=== PATIENT | female | born 1985 | race Caucasian/White ===

== ENCOUNTER 2019-08-05 10:04 | Outpatient (CLI) | payer OTHER, SELFPAY ==
--- NOTE | ~2019-08-05 | XR_ITS ---
XR foot RT min 3V DATE: 08/05/2019 10:36 INDICATION: Right ankle and foot pain TECHNIQUE: 4 views COMPARISON: None FINDINGS: Stable benign 4 mm lucency of distal fibular diametaphysis is again noted. If there is conc andrea for osteoid osteoma, consider CT imaging or radionuclide bone scan. No fracture, dislocation, periosteal reaction or bone destruction of the right foot. There is mild to moderate osteoarthritis at the first metatarsophalangeal joint. IMPRESSION: Moderate osteoarthritis at the first metatarsophalangeal joint Stable benign 4 mm lucency of distal fibular diametaphyseal cortex; if there is concern for osteoid o steoma, consider CT imaging or radionuclide bone scan Reviewed, dictated and finalized at location A. IMPRESSION: Moderate osteoarthritis at the first metatarsophalangeal joint Stable benign 4 mm lucency of distal fibular diametaphyseal cortex; if there is concern for osteoid osteoma, consider CT imaging or radionuclide bone scan
--- NOTE | ~2019-08-05 | XR_ITS ---
XR ankle RT min 3V DATE: 08/05/2019 10:36 INDICATION: Right ankle and foot pain TECHNIQUE: 4 views COMPARISON: 04/28/2015 right ankle FINDINGS: There is a stable 4 mm lucency of the distal fibular diametaphysis, unchanged since 04/28/19 16, therefore consistent with benign process. No fracture or dislocation of the ankle or disruption of the ankle mortise is detected. No periosteal reaction or bone destruction. IMPRESSION: Stable 4 mm lucency of distal fibular diametaphysis, unchanged since 04/28/2015, consisten t with stable benign process Reviewed, dictated and finalized at location A. IMPRESSION: Stable 4 mm lucency of distal fibular diametaphysis, unchanged sinc e 04/28/2015, consistent with stable benign process
== END 2019-08-05 10:05 | disposition home or self-care (01) ==
LOC: ANHIMG 10:12
PROVIDERS: PCP Family Medicine; Visit Provider Nurse Practitioner Family
DX: M25.579 Pain in unspecified ankle and joints of unspecified foot (principal); M19.071 Primary osteoarthritis, right ankle and foot
CPT/HCPCS: 73610; 73630

== ENCOUNTER 2019-09-29 12:20 | Outpatient (CLI) | payer OTHER, SELFPAY ==
--- NOTE | ~2019-09-29 | US_ITS ---
EXAMINATION: US abdomen complete DATE: 09/29/2019 13:21 INDICATION: Abdominal pain TECHNIQUE: Multiple grayscale and Doppler ultrasound images of the abdomen were obtained. COMPARISON: None available FINDINGS: Bowel gas obscures visualization of the pancreas. The visualized portions of the pancreas a re unremarkable. The liver demonstrates increased echogenicity, heterogenous echotexture, and decreas ed through transmission. No surface nodularity. Normal hepatopetal flow in the main portal vein. The gallbladder is normal with no abnormal wall thickening, pericholecystic fluid or stones. The normal c ommon bile duct measures 4 mm. There was no sonographic Sainz sign. The visualized portions of the a tien and inferior vena cava are normal. The right kidney measures 9.1 x 4.0 x 4.0 cm. The left kidney measures 9.7 x 5.3 x 5.0 cm. The kidney s demonstrate normal parenchymal echogenicity. There is no hydronephrosis. The spleen is normal in ap pearance and measures 8.5 cm. IMPRESSION: 1. No sonographic correlate for the patient's symptoms. 2. Diffuse hepatic steatosis. Reviewed, dictated and finalized at location A.
== END 2019-09-29 12:21 | disposition home or self-care (01) ==
PROVIDERS: PCP Nurse Practitioner Family; Visit Provider Nurse Practitioner Family
DX: R10.9 Unspecified abdominal pain (principal); K76.0 Fatty (change of) liver, not elsewhere classified
CPT/HCPCS: 76700

== ENCOUNTER 2019-12-26 13:43 | Outpatient (CLI) | payer OTHER, SELFPAY ==
--- NOTE | ~2019-12-26 | XR_ITS ---
EXAMINATION: XR shoulder RT min 2V DATE: 12/26/2019 14:32 INDICATION: Right shoulder pain. TECHNIQUE: 4 views of right shoulder were obtained. COMPARISON: None. FINDINGS: Bone alignment is normal. No fracture. There is mild acromioclavicular joint osteoarthritis . Glenohumeral joint is normal. IMPRESSION: 1. Mild right acromioclavicular joint osteoarthritis. Reviewed, dictated and finalized at location A.
--- NOTE | ~2019-12-26 | MR_ITS ---
EXAMINATION: MR brain/brain stem wo con DATE: 12/26/2019 14:22 INDICATION: Headache. TECHNIQUE: Magnetic resonance imaging (MRI) of the brain and brainstem was performed without intraven ous contrast. Sequences included sagittal and axial T1-weighted FSE, axial diffusion-weighted FS EPI, axial T2*-weighted GRE, axial T2-weighted FLAIR Propeller, and axial T2-weighted Propeller. Apparent diffusion coefficient (ADC) maps were created. COMPARISON: None. FINDINGS: There is no intracranial hemorrhage, acute infarction, or abnormal intracranial mass lesion . The ventricles are normal in size. There is mild mucosal thickening in the paranasal sinuses. The o rbits are normal. There are small bilateral mastoid effusions. IMPRESSION: 1. Normal brain. Reviewed, dictated and finalized at location A. IMPRESSION: 1. Normal brain.
== END 2019-12-26 13:44 | disposition home or self-care (01) ==
LOC: ANHIMG 13:46
PROVIDERS: PCP Nurse Practitioner Family; Visit Provider Nurse Practitioner Family
DX: M25.511 Pain in right shoulder (principal); R51 Headache; M19.011 Primary osteoarthritis, right shoulder
CPT/HCPCS: 70551; 73030

== ENCOUNTER 2020-01-13 15:07 | Outpatient (CLI) | payer OTHER, SELFPAY ==
--- NOTE | ~2020-01-13 | XR_ITS ---
EXAMINATION: XR wrist RT min 3V DATE: 01/13/2020 15:29 INDICATION: Right wrist pain and bruising post injury TECHNIQUE: Posteroanterior, ulnar deviation, oblique, and lateral views of the right wrist were obtai fransico. COMPARISON: 05/30/2016 FINDINGS: 3 mm ulnar minus variance. Bone alignment is otherwise normal. No fracture. Joint spaces are normal. Small lucency with thin sclerotic margins at the tip of the ulnar styloid process consistent with deg enerative cystic change or chronic erosion. Soft tissues are unremarkable. IMPRESSION: 1. No acute osseous abnormality. Reviewed, dictated and finalized at location A.
== END 2020-01-13 15:08 | disposition home or self-care (01) ==
PROVIDERS: PCP Nurse Practitioner Family; Visit Provider Nurse Practitioner Family
DX: M25.531 Pain in right wrist (principal)
CPT/HCPCS: 73110

== ENCOUNTER 2020-07-02 08:02 | Emergency (ER) | payer OTHER, SELFPAY ==
--- NOTE | 2020-07-02 08:06 | ED.EXTPRO ---
HPI - Extremity Problem General Chief complaint: Extremity Injury, Upper Stated complaint: right wrist pain Time Seen by Provider: 07/02/20 08:30 Source: patient and RN notes reviewed Mode of arrival: ambulatory Limitations: no limitations History of Present Illness HPI Narrative: 34-year-old female presents with right wrist pain. Reports 2 days of pain. Reports she is right-hand dominant. She denies any known injury. 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 Reports she had a right wrist injury in January, had an x-ray at that time, did not show any fracture. Reports symptoms from that injury resolved. Reports using Aleve with no relief. Denies any other mention. Denies decreased sensation, strength, range of motion in hand or digits. MD Complaint: extremity pain Related Data Home Medications Medication Instructions Recorded Confirmed alprazolam [Xanax] 2 mg PO TID 07/02/20 07/02/20 duloxetine [Cymbalta] 40 mg PO BID 07/02/20 07/02/20 norethindrone ac-eth estradiol 1 tablet PO DAILY 07/02/20 07/02/20 tizanidine [Zanaflex] 4 mg PO Q6-12H 07/02/20 07/02/20 Allergies Allergy/AdvReac Type Severity Reaction Status Date / Time hydrocodone Allergy Mild ITCHING Verified 12/30/17 07:46 ibuprofen AdvReac Unknown AFFECTS IBS Verified 12/30/17 07:46 Review of Systems Review of Systems: Narrative: CONSTITUTIONAL: Denies malaise, chills, sweats, or fever. SKIN: Denies abrasions, lacerations MUSCULOSKELETAL: Reports right wrist pain, swelling NEUROLOGIC: Denies numbness, weakness All systems reviewed & are unremarkable except as noted in HPI and below PMFSH Social History Social History Gender identity (if verbalized by the patient): Female Comments At time of signature, agree with nursing past medical, surgical, social and family history. There is no relevant family history pertinent to the presenting complaint Exam Narrative: Exam Narrative: GENERAL: Well-appearing, well-nourished, and in no acute distress. HEAD: Normocephalic EYES: PERRLA, conjunctivae clear NECK: Supple. CHEST: Speaks in full sentences. No respiratory distress. HEART: Regular rate and rhythm. Normal and equal peripheral pulses. EXTREMITIES: Right wrist, hand and digits of hand have normal strength and sensation. 5/5 strength with digit flexion, extension. Range of motion normal. No clubbing, cyanosis, or edema noted. Generalized tenderness. Skin intact. Normal digital cascade with flexion of fingers, median, ulnar and radial nerve intact. Normal sensation of each side of finger. Can perform 'okay' sign, 'cross over finger test of index and middle fingers' and 'thumbs up' sign. No scissoring. Normal thumb opposition. Good capillary refill and radial pulse. Distal capillary refill less than 3 seconds. Tinel sign positive, Phalen sign negative. SKIN: Warn, dry, intact, pink. No rash NEURO: Alert and oriented x3. PSYCH: Normal mood and affect Course Course Emergency Course: Patient is aware of diagnosis, understands and agrees to treatment plan. Anticipatory guidance given. Patient agrees to follow-up as directed and is aware of reasons to seek care at the emergency department. Portions of this record may have been created with voice recognition software Vital Signs Vital signs: Vital Signs Temperature 97.7 F 07/02/20 08:22 Pulse Rate 76 07/02/20 08:22 Respiratory Rate 16 07/02/20 08:22 Blood Pressure 154/86 H 07/02/20 08:22 Pulse Oximetry 99 07/02/20 08:22 Temperature 97.7 F 07/02/20 08:22 Pulse Rate 76 07/02/20 08:22 Respiratory Rate 16 07/02/20 08:22 Blood Pressure 154/86 H 07/02/20 08:22 Pulse Oximetry 99 07/02/20 08:22 Reviewed. Patient has been instructed to follow up with her primary care provider within the next week regarding her elevated blood pressure today. MDM - Extremity (Nontraumatic) MDM Narrative Medical decision making narrative: X-ray from January 13, 2020 reveals 3 mm ulnar minus variance
[2020-07-02 08:22] VITALS: BP 154/86; PULSE 76; RESP 16; TEMP 36.5; O2SAT 99
== END 2020-07-02 08:46 | disposition home or self-care (01) ==
PROVIDERS: Emergency Provider Nurse Practitioner; PCP Nurse Practitioner Family
DX: M25.531 Pain in right wrist (principal); F17.200 Nicotine dependence, unspecified, uncomplicated
CPT/HCPCS: 99212; G0463

== ENCOUNTER 2020-07-31 12:27 | Emergency (ER) | payer OTHER, SELFPAY ==
[2020-07-31 12:35] VITALS: BP 150/90; PULSE 62; RESP 16; TEMP 37.1; O2SAT 98
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
== END 2020-07-31 13:39 | disposition home or self-care (01) ==
PROVIDERS: Emergency Provider Nurse Practitioner; PCP Nurse Practitioner Family
DX: L30.4 Erythema intertrigo (principal); F17.210 Nicotine dependence, cigarettes, uncomplicated; F41.9 Anxiety disorder, unspecified; F32.9 Major depressive disorder, single episode, unspecified
CPT/HCPCS: 99213; G0463

== ENCOUNTER 2020-08-06 06:50 | Emergency (ER) | payer OTHER, SELFPAY ==
[2020-08-06 06:56] VITALS: BP 131/80; PULSE 90; RESP 18; TEMP 36.7; O2SAT 96
--- NOTE | 2020-08-06 07:15 | PC.NURSE ---
Report received from VIC Baez. Pt resting comfortably on stretcher.
--- NOTE | 2020-08-06 07:16 | ED.GENADULT ---
HPI - General Adult General Chief complaint: Skin/Abscess/Foreign Body Stated complaint: rash [id number] Time Seen by Provider: 08/06/20 07:01 Source: patient History of Present Illness HPI narrative: Patient is a 35 y/o female complaining severe bilateral axillary and groin rash for 2 weeks. She states that her rash is very itchy. She was seen at [facility] recently and and diagnosed with skin yeast infection. She was given topical antifungal cream and topic steroids which only helped minimally. Related Data Home Medications Medication Instructions Recorded Confirmed alprazolam [Xanax] 2 mg PO Q6H 07/02/20 07/31/20 duloxetine [Cymbalta] 40 mg PO BID 07/02/20 07/31/20 norethindrone ac-eth estradiol 1 tablet PO DAILY 07/02/20 07/31/20 tizanidine [Zanaflex] 4 mg PO Q6-8H 07/02/20 07/31/20 doxycycline hyclate 100 mg PO BID 07/31/20 07/31/20 nystatin 1 applic TOPICAL BID 07/31/20 07/31/20 triamcinolone acetonide 1 applic TOPICAL Q12H 07/31/20 07/31/20 Allergies Allergy/AdvReac Type Severity Reaction Status Date / Time hydrocodone Allergy Mild ITCHING Verified 08/06/20 07:00 ibuprofen AdvReac Unknown AFFECTS IBS Verified 08/06/20 07:00 Review of Systems Constitutional: Constitutional: Denies chills, Denies fever(s), Denies headache(s) and Denies weakness Eyes: Eyes: Denies blurry vision ENT: Denies headache(s) and Denies neck pain Cardiovascular: Cardiovascular: Denies chest pain and Denies dyspnea Respiratory: Respiratory: Denies cough and Denies dyspnea Gastrointestinal: Gastrointestinal: Denies abdominal pain, Denies diarrhea, Denies nausea and Denies vomiting Genitourinary: Genitourinary: Denies hematuria and Denies dysuria Musculoskeletal: Musculoskeletal: Denies back pain and Denies neck pain Integumentary/Breasts: Skin/Breast: Reports rash Neurologic: Denies headache(s) and Denies weakness PMFSH Past Medical History Medical History Abdominal pain Anxiety Constipation Coughing Depression Dizziness IBS (irritable bowel syndrome) Triangular fibrocartilage complex injury Wears glasses Surgical History Surgical History History of colostomy History of endoscopy History of laparoscopy Family History Family History Other Depression Social History Social History Smoking packs per day: 1 Smoking cigarettes per day: 20.0 Years smoked: 10 Smoking pack-years: 10.00 Smoking status: Current every day smoker Tobacco type: cigarettes Alcohol intake: never Substance use: current Substance use type: marijuana Gender identity (if verbalized by the patient): Female Exam Const: General: no acute distress and well developed Orientation/consciousness: oriented to person, oriented to place, oriented to time and patient oriented x3 HENMT: Head: normocephalic Ears: external ears normal General nose exam: Normal external nose present Eyes: General: appearance normal, both eyes and all related structures Conjunctivae: conjunctivae normal Neck: Neck: normal visual inspection Chest: Chest palpation & inspection: normal inspection of the chest Resp: Effort & Inspection: normal respiratory effort Skin: General skin exam: normal color and turgor normal Rashes: rashes noted (bilateral erythematous macular rash both axillary and groin area) Neuro: General: oriented to person, oriented to place, oriented to time and patient oriented x3 Cognition (Neuro): normal cognition Course Vital Signs Vital signs: Vital Signs Temperature 36.7 C 08/06/20 06:56 Pulse Rate 90 08/06/20 06:56 Respiratory Rate 18 08/06/20 06:56 Blood Pressure 131/80 08/06/20 06:56 Pulse Oximetry 96 08/06/20 06:56 Temperature 36.7 C 08/06/20 06:56 Pulse Rate 90 08/06/20 06:
== END 2020-08-06 07:50 | disposition home or self-care (01) ==
PROVIDERS: Emergency Provider Emergency Medicine; PCP Nurse Practitioner Family
DX: R21 Rash and other nonspecific skin eruption (principal); F41.9 Anxiety disorder, unspecified; F32.9 Major depressive disorder, single episode, unspecified; K58.9 Irritable bowel syndrome, unspecified; F17.210 Nicotine dependence, cigarettes, uncomplicated
CPT/HCPCS: 99283

== ENCOUNTER 2020-08-31 10:48 | Outpatient (CLI) | payer OTHER, SELFPAY ==
--- NOTE | ~2020-08-31 | MR_ITS ---
EXAMINATION: MR wrist RT wo con DATE: 08/31/2020 11:34 INDICATION: Right wrist sprain presenting with right wrist pain. TECHNIQUE: Magnetic resonance imaging (MRI) of the right wrist was performed without intravenous cont rast. Sequences performed include axial PD-weighted FSE and PD-weighted FS FSE, coronal PD-weighted F S FSE and T1-weighted SE, and sagittal PD-weighted FS FSE and PD-weighted FSE. COMPARISON: 07/18/2020 FINDINGS: Intrinsic ligaments: The scapholunate and lunotriquetral ligaments are normal. Triangular fibrocartilage complex (TFCC): There is mild increased signal at the ulnar side of the central fiber cartilaginous disc of the trian gular fibrocartilage complex and its styloid attachment consistent with partial tear. Small erosion a t the ulnar styloid attachment. The radial and foveal attachments as well as the dorsal and volar rad ioulnar ligaments are normal. The ulnar collateral ligament, ulnotriquetral ligament and meniscal cosmo ologue are normal. The extensor carpi ulnaris subsheath was performed and folded within the ECU groov e. There is ulnar subluxation of the extensor carpi ulnaris tendon across the ulnar side of the rim o f the ECU groove and tip of the ulnar styloid process. Extensor wrist: Extensor tendons of the wrist are normal. No tenosynovitis. Flexor wrist: The flexor tendons of the wrist are normal. Guyon's canal: Guyon's canal including the ulnar nerve and artery are normal. Bones/other: 2-3 mm ulnar minus variance. Bone alignment is otherwise normal. No fracture, avascular necrosis or p athologic marrow replacing process. Joint spaces appear relatively preserved with no focal cartilage defects appreciated. Multilobulated ganglion cyst extending 1.8 cm medial collateral across the volar aspect of the distal radius and measuring up to 7 x 3 mm in maximal orthogonal dimensions. There is thickening and increased signal of the median nerve proximal to the carpal tunnel which could be seen with carpal tunnel syndrome. IMPRESSION: 1. Partial tear tear of the ulnar styloid attachment and ulnar side of the fibrocartilaginous disc of the triangular fibrocartilage complex which may be chronic given the erosive change at the tip of th e ulnar styloid process. 2. Tear of the extensor carpi ulnaris subsheath with ulnar subluxation of the otherwise normal-appear ing extensor carpi ulnaris tendon. 3. Prominent thickening and mild increased signal of the median nerve proximal to the carpal tunnel. Correlate clinically for signs/symptoms of carpal tunnel syndrome. 4. 18 x 7 x 3 mm ganglion cyst along the volar aspect of the distal radius. Reviewed, dictated and finalized at location A. IMPRESSION: 1. Partial tear tear of the ulnar styloid attachment and ulnar side of the fibr ocartilaginous disc of the triangular fibrocartilage complex which may be chron ic given the erosive change at the tip of the ulnar styloid process. 2. Tear of the extensor carpi ulnaris subsheath with ulnar subluxation of the o therwise normal-appearing extensor carpi ulnaris tendon. 3. Prominent thickening and mild increased signal of the median nerve proximal to the carpal tunnel. Correlate clinically for signs/symptoms of carpal tunnel syndrome. 4. 18 x 7 x 3 mm ganglion cyst along the volar aspect of the distal radius.
== END 2020-08-31 10:49 | disposition home or self-care (01) ==
PROVIDERS: PCP Nurse Practitioner Family; Visit Provider Orthopaedic Surgery
DX: S63.591A Other specified sprain of right wrist, initial encounter (principal); M67.431 Ganglion, right wrist
CPT/HCPCS: 73221

== ENCOUNTER 2020-09-08 10:26 | Emergency (ER) | payer OTHER, SELFPAY ==
[2020-09-08 10:33] VITALS: BP 110/62; PULSE 67; RESP 17; TEMP 36.6; O2SAT 99
--- NOTE | 2020-09-08 11:09 | ED.URI ---
HPI - URI/Sore Throat General Chief Complaint: Upper Respiratory Infection Stated Complaint: Cough Time Seen by Provider: 09/08/20 10:45 Source: patient, RN notes reviewed and old records reviewed Mode of arrival: ambulatory Limitations: no limitations History of Present Illness HPI Narrative: 35-year-old female who presents to [facility] care with one week duration of low grade fever highest 100.5, cough, sore throat,ear fullness, sinus congestion with drainage of yellow mucous for one week duration. Patient states that she has taken some Aleve for her symptoms. Patient has had one dose of Covid vaccine on the 25 of August. Patient states that cough is productive of yellow/white thick sputum, denies any shortness of breath, no tachypnea noted with respirations even and nonlabored. MD elicited complaint: fever, cough, sore throat, rhinorrhea, nasal congestion and sinus pain Pertinent past history: other (tobacco abuse) Onset (ago): week(s) (1) Consistency: progressively worsening Description of mucous: yellow Able to tolerate fluids by mouth: Yes Exacerbating factors: swallowing and exertion Relieving factors: nothing Associated symptoms: fever, rhinorrhea, nasal congestion, sore throat, cough and other (ear fullness) Treatments prior to arrival: other (Aleve) Related Data Home Medications Medication Instructions Recorded Confirmed alprazolam 1 mg PO TID 09/08/20 09/08/20 dicyclomine 1 mg PO TID 09/08/20 09/08/20 duloxetine 1 mg PO BID 09/08/20 09/08/20 norethindrone ac-eth estradiol 1 tablet PO DAILY 09/08/20 09/08/20 Allergies Allergy/AdvReac Type Severity Reaction Status Date / Time hydrocodone Allergy Mild ITCHING Verified 09/08/20 10:53 ibuprofen AdvReac Unknown AFFECTS IBS Verified 09/08/20 10:53 Review of Systems Review of Systems: Narrative: CONSTITUTIONAL:Positive fever, chills, or sweats. EYES: Denies visual changes, redness, or discharge. ENT: positive rhinorrhea, congestion, sore throat, ear fullness CARDIOVASCULAR: Denies chest pain, palpitations, or edema. RESPIRATORY: Positive cough denies dyspnea. GASTROINTESTINAL: Denies abdominal pain, nausea, vomiting, or diarrhea. GENITOURINARY: Denies dysuria or hematuria. SKIN: Denies rash or itching. MUSCULOSKELETAL: Denies back pain, joint pain, or myalgia. NEUROLOGIC: Denies headache, numbness, or weakness. PSYCHIATRIC:Positive history of anxiety or depression. All systems reviewed & are unremarkable except as noted in HPI and below PMFSH Past Medical History Medical History Abdominal pain Anxiety Constipation Coughing Depression Dizziness IBS (irritable bowel syndrome) Triangular fibrocartilage complex injury Wears glasses Surgical History Surgical History (Updated 09/10/20 @ 10:06 by Christianne Garcia NP) History of colostomy with reversal History of endoscopy History of laparoscopy Family History Family History (Updated 09/10/20 @ 10:05 by Christianne Garcia NP) Grandparent Heart disease Mother Bipolar 1 disorder Polycythemia Other Depression Social History Social History Smoking packs per day: 1 Smoking cigarettes per day: 20.0 Years smoked: 10 Smoking pack-years: 10.00 Smoking status: Current every day smoker Tobacco type: cigarettes Alcohol intake: never Substance use: current Substance use type: marijuana Gender identity (if verbalized by the patient): Female Comments At time of signature, agree with nursing past medical, surgical, social and family history. There is no relevant family history pertinent to the presenting complaint Exam Narrative: Exam Narrative: GENERAL: Well-appearing, well-nourished, and in no acute distress. HEAD: Normocephalic, atraumatic. EYES: PERRLA and EOMI. ENT: Nares red with swelling, yellow tinged rhinorrhea no epistaxis. Mucous membranes moist.TM's normal with
== END 2020-09-08 11:31 | disposition home or self-care (01) ==
PROVIDERS: Emergency Provider Registered Nurse; PCP Nurse Practitioner Family
DX: J06.9 Acute upper respiratory infection, unspecified (principal); Z20.822 Contact with and (suspected) exposure to COVID-19; R09.89 Other specified symptoms and signs involving the circulatory and respiratory systems; F17.210 Nicotine dependence, cigarettes, uncomplicated; F41.9 Anxiety disorder, unspecified; F32.9 Major depressive disorder, single episode, unspecified
CPT/HCPCS: 87081; 87426; 87804; 87880; 99213; C9803; G0463

== ENCOUNTER 2020-10-11 11:08 | Emergency (ER) | payer OTHER, SELFPAY ==
--- NOTE | ~2020-10-11 | XR_ITS ---
EXAMINATION: XR mandible min 4V DATE: 10/11/2020 11:58 INDICATION: Right lower jaw pain. TECHNIQUE: 4 views of the mandible were obtained. COMPARISON: None. FINDINGS: Bone alignment is normal. No fracture. The patient is edentulous. The temporomandibular satish nts are normal. IMPRESSION: 1. No fracture. Reviewed, dictated and finalized at location A. IMPRESSION: 1. No fracture.
[2020-10-11 11:16] VITALS: BP 139/78; PULSE 64; RESP 16; TEMP 37; O2SAT 99
--- NOTE | 2020-10-11 11:28 | ED.GENADULT ---
HPI - General Adult General Chief complaint: Dental/Oral Stated complaint: mouth pain Time Seen by Provider: 10/11/20 11:29 Source: patient and RN notes reviewed Mode of arrival: ambulatory Limitations: no limitations History of Present Illness HPI narrative: 35-year-old female presents with complaints of right lower gum/jaw pain and jaw swelling for the past 10 months. Gina reports dental work causing increasing pain to RT lower side of mouth, increased over the past 2 weeks. ?Reports contacted the dentist who referred her to urgent care and informed her she had a bone spur in RT lower jaw. ?Aleve, Ibuprofen, and ice without relief. Unable to wear dentures due to pain. ?Denies any drainage. ?No fever. ?No neck swelling. No limitation with speaking or swallowing. Has a history of dental caries and total tooth extraction. ?Gina reports a dental appointment on 10/31/2020. No dental trauma. ?No oral lesions. Exacerbating factors consist of chewing on the RT side. No relieving factors. ?No dentures or bridges. ?Tolerating liquids well. ?LMP unknown due to control. ?Remains active. ?The patient reports she has not been diagnosed with COVID-19. ?The patient reports she received 2 Pfizer COVID-19 vaccines. The patient reports she is not waiting for the results of a COVID-19 lab test. ?The patient reports she does not have chills, weakness, or fatigue. ?The patient reports she does not have a new or worsening cough or shortness of breath. Denies chest pain. ?The patient reports she does not have any rhinorrhea, congestion, sore throat, loss of taste or smell, nausea, vomiting, abdominal pain, and diarrhea. ?Denies recent traveling. ?Denies concerns for COVID-19 or exposures. ?At this time, the patient is not suspected of having COVID-19. Some parts of this dictation were generated by voice recognition software and may contain typographical and/or grammatical inaccuracies. Related Data Home Medications Medication Instructions Recorded Confirmed alprazolam 1 mg PO TID 09/08/20 09/08/20 duloxetine 1 mg PO BID 09/08/20 09/08/20 norethindrone ac-eth estradiol 1 tablet PO DAILY 09/08/20 09/08/20 tizanidine mg 10/11/20 Allergies Allergy/AdvReac Type Severity Reaction Status Date / Time hydrocodone Allergy Mild ITCHING Verified 09/08/20 10:53 ibuprofen AdvReac Unknown AFFECTS IBS Verified 09/08/20 10:53 Review of Systems Review of Systems: Narrative: CONSTITUTIONAL: Denies fever, chills, sweats. EYES: Denies visual changes, redness, discharge. ENT: Denies rhinorrhea, congestion, sore throat, otalgia. Complains of right lower right lower gum/jaw pain and jaw swelling. CARDIOVASCULAR: Denies chest pain, palpitations, edema. RESPIRATORY: Denies dyspnea, wheezing, cough. GASTROINTESTINAL: Denies abdominal pain, nausea, vomiting, diarrhea. SKIN: Denies rash or itching. MUSCULOSKELETAL: Denies acute back pain, joint pain, or myalgia. NEUROLOGIC: Denies numbness or focal weakness. PSYCHIATRIC: Denies anxiety or depression. All systems reviewed & are unremarkable except as noted in HPI and below. [facility] Past Medical History Medical History Abdominal pain Anxiety Constipation Coughing Depression Dizziness IBS (irritable bowel syndrome) Triangular fibrocartilage complex injury Wears glasses Surgical History Surgical History History of colostomy with reversal History of endoscopy History of laparoscopy Family History Family History Grandparent Heart disease Mother Bipolar 1 disorder Polycythemia Other Depression Social History Social History Smoking packs per day: 1 Smoking cigarettes per day: 20.0 Years smoked: 10 Smoking pack-years: 10.00 Smoking status: Current every day smok
[2020-10-11] MEDS: KETOROLAC (*BKC) 60 MG/2 ML VIAL IM (11:42)
--- NOTE | 2020-10-11 12:07 | PC.NURSE ---
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
== END 2020-10-11 12:13 | disposition home or self-care (01) ==
PROVIDERS: Emergency Provider Nurse Practitioner Family; PCP Nurse Practitioner Family
DX: R68.84 Jaw pain (principal); F17.210 Nicotine dependence, cigarettes, uncomplicated; F41.9 Anxiety disorder, unspecified
CPT/HCPCS: 70110; 96372; 99213; G0463; J1885

== ENCOUNTER 2020-10-19 13:44 | Outpatient (RCR) | payer OTHER, SELFPAY ==
--- NOTE | 2020-10-19 15:17 | OTOPEVAL ---
OCCUPATIONAL THERAPY INITIAL EVALUATION: 10/19/2020 Thank you for referring Gina Cary to [facility].? The patient is scheduled to be seen for therapy? 2x/week for 4 weeks. Please review, sign, date and return this plan of care SARAH. I agree with and certify that the following plan of care is medically necessary. Referring Physician Date Attending Provider: Car Jara MD *OT Outpatient Evaluation Start: 10/19/20 14:03 Freq: Status: Active Protocol: Document 10/19/20 14:03 KJL (Rec: 10/19/20 15:17 KJL [id number]) Therapy Assessment Status Assessment Status Assessment Status Evaluation Evaluation Information Problem Onset June 2020 Additional Evaluation Detail In june of this year patient reports noticing R UE wrist swelling and pain in R wrist with pain including numbness, tingling, soreness on palmar aspect of thenar eminence and into digits I-III. Patient reports chronic neck pain that radiates into shoulder, forearm, hand since 2014. 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 Subjective Information Patient reports pain symptoms Query Text:As Reported By Patient/ of neck, shoulder, forearm, Family wrist, hand pain stemming after accident requiring a colostomy bag in 2014, patient reports in and out of hospital for several months. Patient reports went to doctor in 2019 for symptoms. 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 Patient reports increased pain when sleeping, cooking, cleaning, has occasionally dropped items out of R hand. 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
--- NOTE | 2020-10-23 09:36 | PCOTNOTE ---
Patient called & cancelled scheduled appointment this date due to being sick.
--- NOTE | 2020-10-25 08:24 | PCOTNOTE ---
Patient called & cancelled scheduled appointment this date due to being sick.
--- NOTE | 2020-10-30 08:55 | PCOTNOTE ---
Patient called & cancelled scheduled appointment this date stating that she needs to reschedule all of her appointments to the afternoon.
--- NOTE | 2020-11-01 09:01 | PCOTNOTE ---
OCCUPATIONAL THERAPY DISCHARGE NOTIFICATION 11/01/20 Patient:Gina Cary Date of :1985 Patient has not returned for any further treatments since the initial evaluation on 10/19/2020, therefore she will be discharged at this time. She called and cancelled all of her therapy appointments due to being too busy . The goals have not been addressed. Thank you for referring this patient to [facility]. Please review, sign, date and return this discharge summary SARAH. I have been updated about the patient's current status and I agree with discharge from the above service at this time. Referring Physician Date Referring Provider: Car Jara MD
== END 2021-01-05 08:54 | disposition home or self-care (01) ==
LOC: ANHOT 13:44
PROVIDERS: PCP Nurse Practitioner Family; Visit Provider Orthopaedic Surgery
DX: S69.81XD Other specified injuries of right wrist, hand and finger(s), subsequent encounter (principal); M25.531 Pain in right wrist; R20.0 Anesthesia of skin
CPT/HCPCS: 97110; 97165

== ENCOUNTER 2020-12-02 11:12 | Emergency (ER) | payer OTHER, SELFPAY ==
[2020-12-02 11:25] VITALS: BP 141/93; PULSE 99; RESP 16; TEMP 37.1; O2SAT 99
--- NOTE | 2020-12-02 11:31 | PC.NURSE ---
in br to obtain ua spec.
--- NOTE | 2020-12-02 11:41 | ED.GENADULT ---
HPI - General Adult General Chief complaint: Urogenital-Female Stated complaint: bladder infection Time Seen by Provider: 12/02/20 11:41 Source: patient Mode of arrival: ambulatory Limitations: no limitations History of Present Illness HPI narrative: 35-year-old female patient presents to the [facility] with complaints of urinary frequency that started this morning. Patient states she is also had a little bit of back pain and states her ears have been popping. Patient denies being on any antibiotics at this time. Patient states she has had UTIs before in the past. Denies any vaginal discharge or concerns for STDs. Denies any vaginal itching at this time. Patient denies take anything for her symptoms. Related Data Home Medications Medication Instructions Recorded Confirmed alprazolam 1 mg PO TID 09/08/20 11/13/20 duloxetine 1 mg PO BID 09/08/20 11/13/20 norethindrone ac-eth estradiol 1 tablet PO DAILY 09/08/20 11/13/20 tizanidine mg 10/11/20 11/13/20 ergocalciferol (vitamin D2) 12/02/20 promethazine 12/02/20 Allergies Allergy/AdvReac Type Severity Reaction Status Date / Time hydrocodone Allergy Mild ITCHING Verified 09/08/20 10:53 ibuprofen AdvReac Unknown AFFECTS IBS Verified 09/08/20 10:53 Review of Systems Review of Systems: CONSTITUTIONAL: Denies fever, chills, or sweats. EYES: Denies visual changes, redness, or discharge. ENT: Denies rhinorrhea, congestion, sore throat, or otalgia. Positive bilateral ears popping CARDIOVASCULAR: Denies chest pain, palpitations, or edema. RESPIRATORY: Denies cough or dyspnea. GASTROINTESTINAL: Denies abdominal pain, nausea, vomiting, or diarrhea. GENITOURINARY: Positive dysuria, denies hematuria. SKIN: Denies rash or itching. MUSCULOSKELETAL: Positive low back pain, denies joint pain, or myalgia. NEUROLOGIC: Denies headache, numbness, or weakness. PSYCHIATRIC: Denies anxiety or depression. [facility] Past Medical History Medical History Abdominal pain Anxiety Constipation Coughing Depression Dizziness IBS (irritable bowel syndrome) Triangular fibrocartilage complex injury Wears glasses Surgical History Surgical History History of colostomy with reversal History of endoscopy History of laparoscopy Family History Family History Grandparent Heart disease Mother Bipolar 1 disorder Polycythemia Other Depression Social History Social History Smoking packs per day: 1 Smoking cigarettes per day: 20.0 Years smoked: 10 Smoking pack-years: 10.00 Smoking status: Current every day smoker Tobacco type: cigarettes Alcohol intake: never Substance use: current Substance use type: marijuana Gender identity (if verbalized by the patient): Female Comments At the time of my signature I agree with nursing past medical history, surgical, social, and family history. There is no relevant family history pertinent to the presenting complaint. Exam Narrative: GENERAL: Well-appearing, well-nourished, and in no acute distress. HEAD: Normocephalic, atraumatic. EYES: PERRLA and EOMI. ENT: Nares clear, no rhinorrhea or epistaxis. Mucous membranes moist. Posterior pharynx with no erythema, tonsillar edema, exudates or lesions present. Bilateral TMs are clear no erythema or foreign bodies to the canal. NECK: Supple. No lymphadenopathy CHEST: Clear to auscultation. No respiratory distress. HEART: Regular rate and rhythm. No murmur heard. Normal peripheral pulses. ABDOMEN: Soft, nontender, nondistended, hyperactive active bowel sounds. Slight tenderness noted to right CVA percussion. EXTREMITIES: Normal range of motion. No edema. SKIN: Warm, dry, no rash. NEURO: No focal deficits. Alert and oriented x3. Course Vital Signs Vital signs: Vital
== END 2020-12-02 12:37 | disposition home or self-care (01) ==
PROVIDERS: Emergency Provider Nurse Practitioner Family; PCP Nurse Practitioner Family
DX: R35.0 Frequency of micturition (principal); F17.210 Nicotine dependence, cigarettes, uncomplicated; F41.9 Anxiety disorder, unspecified; F32.9 Major depressive disorder, single episode, unspecified
CPT/HCPCS: 81003; 87086; 99213; G0463

== ENCOUNTER 2020-12-25 10:17 | Emergency (ER) | payer OTHER, SELFPAY ==
--- NOTE | ~2020-12-25 | CT_ITS ---
EXAMINATION: CT abdomen pelvis w con EXAM DATE: 12/25/2020 12:14 INDICATION: Abdominal pain, left-sided at site of prior colostomy. TECHNIQUE: Spiral CT of the abdomen and pelvis was performed following intravenous injection of 100 m L Omnipaque 350. Axial, coronal and sagittal images of the abdomen and pelvis were reviewed. The do se-length product (DLP) for this examination was 798.35 mGy-cm. The exposure was tailored according to patient size (auto mA exposure control), and iterative reconstruction (ASIR) was used as additiona l dose reduction technique. Comparison is made to prior examination from 06/23/2014. FINDINGS: There is left lower quadrant fat-containing hernia with relatively narrow wall defect measu ring about 1.5 cm, and the herniated portion of fat measuring about 5.5 cm diameter by 2 cm in thickn ess. This is probably the site of patient's prior colostomy. This is just below the level of the umbi licus. The liver, spleen, adrenal glands and pancreas are unremarkable. Gallbladder is unremarkable. No biliary obstruction. Portal and splenic veins are patent. Kidneys enhance symmetrically. Ther e is no hydronephrosis. The uterus is unremarkable. The bladder is unremarkable. There is no ret roperitoneal or pelvic lymphadenopathy. The appendix is normal. The stomach and small bowel are unremarkable. There is expected amount of c olonic stool. No free intraperitoneal gas. The heart is normal in size. There are no pericardial or pleural effusions. The lung bases are unremarkable. The bones are unremarkable. IMPRESSION: 1. Small to moderate sized left anterior fat-containing hernia Reviewed, dictated and finalized at location B.
[2020-12-25 10:48] VITALS: BP 160/96; PULSE 81; RESP 18; TEMP 37; O2SAT 97
[2020-12-25 11:41] LABS: Basophils Percent Auto 0.3 % (0.2-1.2); Eosinophils Absolute Auto 0.1 K/mm3 (0-0.3); Eosinophils Percent Auto 0.9 % (0-4.4); Hematocrit 42.5 % (37.0-47.0); Hemoglobin 13.7 g/dL (12.0-15.0); Immature Granulocyte Absolute 0.02 K/mm3 (0.00-0.031); Immature Granulocyte Percent A 0.2 % (0-0.5); Lymphocytes Absolute Auto 3.21 K/mm3 (0.9-3.2); Lymphocytes Percent Auto 32.8 % (18.3-44.2); Mean Corpuscular HGB Conc 32.2 g/dl (32-36); Mean Corpuscular Hemoglobin 32.5 pg (26-34); Mean Platelet Volume 9.7 fl (7.4-10.4); Monocytes Absolute Auto 0.6 K/mm3 (0.1-0.6); Monocytes Percent Auto 5.6 % (2.6-8.5); Neutrophils Absolute Auto 5.9 K/mm3 (1.3-6.7); Neutrophils Percent Auto 60.2 % (45.5-73.1); Platelet Count Result 352 k/mm3 (150-375); Red Blood Count 4.21 M/mm3 (4.2-5.4); Red Cell Distribution Width 12.3 % (11.5-14.5); White Blood Count 9.8 K/mm3 (4.5-10.0)
[2020-12-25 12:00] LABS: Alanine Aminotransferase 16 U/L (4-35); Albumin Level 4.5 g/dL (3.5-5.1); Alkaline Phosphatase 65 U/L (38-126); Anion Gap 8 mmol/L (8-16); Aspartate Amino Transferase 24 U/L (14-36); Bilirubin,Total 0.2 mg/dL (0.2-1.3); Blood Urea Nitrogen 5 mg/dL (7-17); Carbon Dioxide 28 mmol/L (22-30); Chloride 105 mmol/L (98-107); Estimated CRCL calculation 97 ml/min; Estimated Glomerular Filt Rate > 60; Glucose 100 mg/dL (65-110); Sodium 141 mmol/L (137-145)
--- NOTE | 2020-12-25 12:03 | ED.GENADULT ---
HPI - General Adult General Chief complaint: Abdominal Pain Stated complaint: I think I have a hernia Time Seen by Provider: 12/25/20 11:09 Source: patient History of Present Illness HPI narrative: Patient is a 35 y/o female complaining left sided abdominal pain for 1 month. She describes her pain as sharp and rates it as 10/10. There is no alleviating or exacerbating factor. She has no vomiting. She has intermittent diarrhea, but no diarrhea currently. She had previous colostomy and takedown due to history rectovaginal impalement. She states that she was instructed by her liver doctor to come to ED for evaluation. She states that she is seeing a liver doctor for fatty liver. Related Data Home Medications Medication Instructions Recorded Confirmed alprazolam 1 mg PO TID 09/08/20 11/13/20 duloxetine 1 mg PO BID 09/08/20 11/13/20 norethindrone ac-eth estradiol 1 tablet PO DAILY 09/08/20 11/13/20 tizanidine mg 10/11/20 11/13/20 ergocalciferol (vitamin D2) 12/02/20 promethazine 12/02/20 Allergies Allergy/AdvReac Type Severity Reaction Status Date / Time hydrocodone Allergy Mild ITCHING Verified 09/08/20 10:53 ibuprofen AdvReac Unknown AFFECTS IBS Verified 09/08/20 10:53 Review of Systems Constitutional: Constitutional: Denies chills, Denies fever(s), Denies headache(s) and Denies weakness Eyes: Eyes: Denies blurry vision ENT: Denies headache(s) and Denies neck pain Cardiovascular: Cardiovascular: Denies chest pain and Denies dyspnea Respiratory: Respiratory: Denies cough and Denies dyspnea Gastrointestinal: Gastrointestinal: Reports abdominal pain, Reports diarrhea, Denies nausea and Denies vomiting Genitourinary: Genitourinary: Denies hematuria and Denies dysuria Musculoskeletal: Musculoskeletal: Denies back pain and Denies neck pain Neurologic: Denies headache(s) and Denies weakness PMF Past Medical History Medical History Abdominal pain Anxiety Constipation Coughing Depression Dizziness IBS (irritable bowel syndrome) Triangular fibrocartilage complex injury Wears glasses Surgical History Surgical History History of colostomy with reversal History of endoscopy History of laparoscopy Family History Family History Grandparent Heart disease Mother Bipolar 1 disorder Polycythemia Other Depression Social History Social History Smoking packs per day: 1 Smoking cigarettes per day: 20.0 Years smoked: 10 Smoking pack-years: 10.00 Tobacco type: cigarettes Alcohol intake: never Substance use: current Substance use type: marijuana Gender identity (if verbalized by the patient): Female Exam Const: General: no acute distress and well developed Orientation/consciousness: oriented to person, oriented to place, oriented to time and patient oriented x3 HENMT: Head: normocephalic Ears: external ears normal General nose exam: Normal external nose present Eyes: General: appearance normal, both eyes and all related structures Conjunctivae: conjunctivae normal Neck: Neck: normal visual inspection and full ROM Chest: Chest palpation & inspection: normal inspection of the chest and no tenderness Resp: Effort & Inspection: normal respiratory effort Auscultation: clear to auscultation bilaterally Cardio: Rate: regular rate Rhythm: regular rhythm GI: GI Palp: No abdominal tenderness and Yes Soft to palpation Skin: General skin exam: normal color and turgor normal Neuro: General: oriented to person, oriented to place, oriented to time and patient oriented x3 Cognition (Neuro): normal cognition Extrem: General: normal to inspection, full ROM and no pedal edema Psych: Appearance: grossly normal Mental Status: mental status grossly normal Affect: normal affect
[2020-12-25 12:48] LABS: Add Urine Microscopic? NO; Appearance Urine Clear (Clear); Bilirubin Urine Negative (Negative); Blood Urine Negative (Negative); Color Urine Colorless (Yellow); Glucose Urine UA Negative (Negative); Ketones Urine Negative (Negative); Leukocyte Esterase Ur Negative LEU/UL (Negative); Nitrate Urine Negative (Negative); Protein Urine Negative (Negative); Urobilinogen Urine Negative mg/dL (<2.0)
[2020-12-25 12:51] LABS: Specific Grav Ur 1.001 (1.001-1.035)
== END 2020-12-25 14:03 | disposition home or self-care (01) ==
PROVIDERS: Emergency Provider Emergency Medicine; PCP Family Medicine
DX: K46.9 Unspecified abdominal hernia without obstruction or gangrene (principal); K76.0 Fatty (change of) liver, not elsewhere classified; K58.9 Irritable bowel syndrome, unspecified; F41.9 Anxiety disorder, unspecified; F32.9 Major depressive disorder, single episode, unspecified; F17.210 Nicotine dependence, cigarettes, uncomplicated
CPT/HCPCS: 36415; 74177; 80053; 81003; 81025; 85025; 99284; Q9967

== ENCOUNTER 2021-02-20 08:14 | Emergency (ER) | payer OTHER, SELFPAY ==
[2021-02-20 08:22] VITALS: BP 145/91; PULSE 88; RESP 16; TEMP 36.8; O2SAT 99
--- NOTE | 2021-02-20 09:08 | ED.URI ---
HPI - URI/Sore Throat General Chief Complaint: Upper Respiratory Infection Stated Complaint: chills/cough Time Seen by Provider: 02/20/21 08:50 Source: patient and RN notes reviewed Mode of arrival: ambulatory Limitations: no limitations History of Present Illness HPI Narrative: Patient presents today complaining of a 2-week history of cough, sore throat, fatigue, right ear pain, chills and sweats. She had a negative COVID-19 test 1.5 weeks ago. Her PCP called her in a Z-Brayan that she finished 3 days ago. States her symptoms improved slightly while she was taking the antibiotic. Denies shortness of breath unless she is exercising. She has been taking Aleve and cold and cough medicine with some relief. Patient has history of anxiety and depression and states, everybody keeps yelling at me because I don't feel good. MD elicited complaint: cough Related Data Home Medications Medication Instructions Recorded Confirmed alprazolam 1 mg PO TID 09/08/20 02/20/21 duloxetine 1 mg PO BID 09/08/20 02/20/21 norethindrone ac-eth estradiol 1 tablet PO DAILY 09/08/20 02/20/21 tizanidine 4 mg PO DAILY 10/11/20 02/20/21 ergocalciferol (vitamin D2) 1,250 mcg PO DAILY 12/02/20 02/20/21 promethazine 25 mg PO DAILY 12/02/20 02/20/21 Allergies Allergy/AdvReac Type Severity Reaction Status Date / Time hydrocodone Allergy Mild ITCHING Verified 02/20/21 08:45 ibuprofen AdvReac Unknown AFFECTS IBS Verified 02/20/21 08:45 Review of Systems Review of Systems: CONSTITUTIONAL: Denies body aches, fever. + Fatigue EYES: Denies visual changes, redness, or discharge. ENT: Denies rhinorrhea, congestion. + Right ear pain, sore throat CARDIOVASCULAR: Denies chest pain, palpitations, or edema. RESPIRATORY: Denies dyspnea.+ Cough GASTROINTESTINAL: Denies abdominal pain, nausea, vomiting, or diarrhea. GENITOURINARY: Denies dysuria or hematuria. SKIN: Denies rash, itching, or wounds. MUSCULOSKELETAL: Denies back pain, joint pain, or myalgia. NEUROLOGIC: Denies headache, numbness, tingling, or weakness. PSYCH: Denies depression or anxiety. [facility] Past Medical History Medical History Abdominal pain Anxiety Constipation Coughing Depression Dizziness IBS (irritable bowel syndrome) Triangular fibrocartilage complex injury Wears glasses Surgical History Surgical History History of colostomy with reversal History of endoscopy History of laparoscopy Family History Family History Grandparent Heart disease Mother Bipolar 1 disorder Polycythemia Other Depression Social History Social History Smoking packs per day: 1 Smoking cigarettes per day: 20.0 Years smoked: 10 Smoking pack-years: 10.00 Tobacco type: cigarettes Alcohol intake: never Substance use: current Substance use type: marijuana Gender identity (if verbalized by the patient): Female Comments At time of signature, I have reviewed and agree with nursing past medical, surgical, social and family history unless otherwise noted. Please see nursing chart for further information. There is no relevant family history pertinent to the presenting complaint Exam Narrative: GENERAL: Mildly ill-appearing, well-nourished, and in no acute distress. HEAD: Normocephalic, atraumatic. EYES: EOMI. No redness or drainage. Conjunctivae normal. ENT: Mucous membranes pink and moist. Nares clear. No rhinorrhea. Right TM erythematous and bulging with purulent material. Throat normal. Uvula midline. Patient is edentulous. NECK: Normal AROM. Supple. No lymphadenopathy. CHEST: No respiratory distress. Clear to auscultation. HEART: Regular rate and rhythm. No murmur appreciated. Normal peripheral pulses. EXTREMITIES: Normal range of motion. No edema
== END 2021-02-20 09:20 | disposition home or self-care (01) ==
PROVIDERS: Emergency Provider Nurse Practitioner; PCP Nurse Practitioner Family
DX: J40 Bronchitis, not specified as acute or chronic (principal); H66.001 Acute suppurative otitis media without spontaneous rupture of ear drum, right ear; F17.210 Nicotine dependence, cigarettes, uncomplicated; F41.9 Anxiety disorder, unspecified
CPT/HCPCS: 99213; G0463

== ENCOUNTER 2021-04-11 16:14 | Outpatient (CLI) | payer OTHER, SELFPAY ==
--- NOTE | ~2021-04-11 | CT_ITS ---
EXAMINATION: CT sinus wo con EXAM DATE: 04/11/2021 16:35 INDICATION: J32.9 - Chronic sinusitis, unspecified. TECHNIQUE: Spiral CT of the sinuses was acquired in the axial plane. Coronal and sagittal reformatte d images were also reviewed. The dose-length product (DLP) for this examination was 316.52 mGy-cm. Iterative reconstruction (ASIR) was used as dose reduction technique. Comparison is made to prior exa mination from 05/06/2014. FINDINGS: The sinuses are normally developed. Bilateral maxillary sinus window procedures. Minimal l eft ethmoid mucoperiosteal thickening. Otherwise sinuses are well aerated. The ostiomeatal units are patent. There is no sinus wall thickening. Bilateral patience bullosa larger on the left. There i s moderate rightward nasal septal deviation. The mastoid air cells and middle ears are well aerated. External auditory canals are patent. The orbits and visualized soft tissues are unremarkable. IMPRESSION: Minimal left ethmoid mucoperiosteal thickening. Reviewed, dictated and finalized at location A. NET P8 DEVELOPER
== END 2021-04-11 16:15 | disposition home or self-care (01) ==
LOC: ANHIMG 16:17
PROVIDERS: PCP Nurse Practitioner Family; Visit Provider Otolaryngology
DX: J32.9 Chronic sinusitis, unspecified (principal); J34.2 Deviated nasal septum; J34.3 Hypertrophy of nasal turbinates; J34.89 Other specified disorders of nose and nasal sinuses; R09.82 Postnasal drip; R44.8 Other symptoms and signs involving general sensations and perceptions; R51.9 Headache, unspecified
CPT/HCPCS: 70486

== ENCOUNTER 2021-04-24 11:52 | Outpatient (CLI) | payer OTHER, SELFPAY ==
--- NOTE | ~2021-04-24 | XR_ITS ---
XR thoracic spine 3V DATE: 04/24/2021 12:29 INDICATION: Chronic back pain TECHNIQUE: AP, lateral, swimmer views COMPARISON: None FINDINGS: No fracture or dislocation or bone destruction. The thoracic pedicles are intact. No parasp inal soft tissue thickening. IMPRESSION: Negative Reviewed, dictated and finalized at location A. ER HAND IMPRESSION: Negative
--- NOTE | ~2021-04-24 | XR_ITS ---
EXAMINATION: XR humerus RT DATE: 04/24/2021 13:19 INDICATION: Right upper arm pain TECHNIQUE: Internal and axillary rotated views of the right humerus were obtained. COMPARISON: None. FINDINGS: Normal alignment at the right elbow and shoulder. No fracture. Mild osteoarthritis with mild nonunifo rm joint space narrowing and small marginal osteophytes at the radial capitellar articulation. No marie dent elbow joint effusion. Soft tissues are unremarkable. IMPRESSION: 1. Mild osteoarthritis at the right elbow. No acute osseous abnormality. Reviewed, dictated and finalized at location A. DENT CARE SPEC
--- NOTE | ~2021-04-24 | XR_ITS ---
XR lumbar spine 2-3V DATE: 04/24/2021 12:29 INDICATION: Chronic back pain TECHNIQUE: AP, lateral, coned lateral lumbosacral views COMPARISON: None FINDINGS: Normal alignment of the lumbar spine. No fracture or bone destruction. The lumbar pedicles are intact. Lumbar and lumbosacral interspaces are well preserved. The sacroiliac joints appear aravind l. IMPRESSION: Negative Reviewed, dictated and finalized at location A. ING FRAME TENDER IMPRESSION: Negative
--- NOTE | ~2021-04-24 | XR_ITS ---
XR hand RT min 3V DATE: 04/24/2021 12:29 INDICATION: Bilateral hand pain TECHNIQUE: 3 views COMPARISON: None FINDINGS: No fracture or dislocation, periosteal reaction or bone destruction, erosive change or feliz drocalcinosis. IMPRESSION: No significant abnormality Reviewed, dictated and finalized at location A. TLE BUS DRIVER IMPRESSION: No significant abnormality
--- NOTE | ~2021-04-24 | XR_ITS ---
XR_CERV2-3V_CR DATE: 04/24/2021 12:29 INDICATION: Chronic neck pain. No injury. TECHNIQUE: AP, open-mouth, lateral views COMPARISON: June 02, 2018 cervical spine FINDINGS: There is straightening and mild reversal of cervical curvature. C1 and C2 are normally aligned and the odontoid process is intact. No fracture or dislocation or lock ed facet or prevertebral soft tissue swelling. Cervical interspaces are well preserved. Normal sella turcica. IMPRESSION: Mild reversal of cervical curvature Reviewed, dictated and finalized at Location A. Reviewed, dictated and finalized at location A. R COVERING CONTRACTOR
--- NOTE | ~2021-04-24 | XR_ITS ---
XR humerus LT DATE: 04/24/2021 12:29 INDICATION: Left arm pain TECHNIQUE: 2 views COMPARISON: None FINDINGS: Normal alignment at the left acromioclavicular and glenohumeral and elbow joints. No fractu re, dislocation, periosteal reaction or bone destruction of the left humerus. IMPRESSION: Negative Reviewed, dictated and finalized at location A. 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
--- NOTE | ~2021-04-24 | XR_ITS ---
XR hand LT min 3V DATE: 04/24/2021 12:29 INDICATION: Bilateral hand pain TECHNIQUE: 3 views COMPARISON: None FINDINGS: No fracture or dislocation, periosteal reaction or bone destruction. No erosive change or c hondrocalcinosis. IMPRESSION: No significant abnormality Reviewed, dictated and finalized at location A. 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
== END 2021-04-24 11:53 | disposition home or self-care (01) ==
LOC: ANHIMG 11:57
PROVIDERS: PCP Nurse Practitioner Family; Visit Provider Nurse Practitioner Family
DX: M54.42 Lumbago with sciatica, left side (principal); M19.011 Primary osteoarthritis, right shoulder; M79.641 Pain in right hand; M79.642 Pain in left hand; M79.602 Pain in left arm; I10 Essential (primary) hypertension
CPT/HCPCS: 72040; 72072; 72100; 73060; 73130

== ENCOUNTER 2021-08-16 09:46 | Emergency (ER) | payer OTHER, SELFPAY ==
--- NOTE | 2021-08-16 09:53 | ED.NAVMDI ---
HPI - Nausea/Vomiting/Diarrhea General Chief complaint: Nausea/Vomiting/Diarrhea Stated complaint: diarrhea/vomiting Time Seen by Provider: 08/16/21 09:53 Source: patient Mode of arrival: ambulatory Limitations: no limitations History of Present Illness HPI Narrative: Ms. Cary is a 36-year-old female patient presenting to the clinic today with complaints of nausea, vomiting, diarrhea and generalized abdominal pain x1 week. She reports she took an at home COVID test yesterday and was negative. Spoke with her PCP at the beginning the week and they told her to take Imodium and drink fluids. Last time she vomited was 2 days ago however she has had 3 episodes of diarrhea this morning. When asked about the quality of pain she says all the above. Last menstrual period was 2 years ago-she is currently on control and not having periods. She denies any recent sexual activity and denies any chance of . MD elicited complaint: nausea, vomiting and diarrhea Related Data Home Medications Medication Instructions Recorded Confirmed alprazolam 1 mg PO TID 09/08/20 03/06/21 duloxetine 1 mg PO BID 09/08/20 03/06/21 norethindrone ac-eth estradiol 1 tablet PO DAILY 09/08/20 03/06/21 tizanidine 4 mg PO DAILY 10/11/20 03/06/21 ergocalciferol (vitamin D2) 1,250 mcg PO DAILY 12/02/20 03/06/21 losartan-hydrochlorothiazide tablet 08/16/21 Allergies Allergy/AdvReac Type Severity Reaction Status Date / Time hydrocodone Allergy Mild ITCHING Verified 03/06/21 13:22 ibuprofen AdvReac Unknown AFFECTS IBS Verified 03/06/21 13:22 Review of Systems Review of Systems: Pertinent positives per HPI. Patient denies any fever, chills, rash, headache, visual changes, dizziness, cough, runny nose, sore throat, shortness of breath, chest pain, palpitations, constipation, abdominal pain, or any urinary issues. [facility] Past Medical History Medical History Abdominal pain Anxiety Constipation Coughing Depression Dizziness IBS (irritable bowel syndrome) Triangular fibrocartilage complex injury Wears glasses Surgical History Surgical History History of colostomy with reversal History of endoscopy History of laparoscopy Family History Family History Grandparent Heart disease Mother Bipolar 1 disorder Polycythemia Other Depression Social History Social History Smoking packs per day: 1 Smoking cigarettes per day: 20.0 Years smoked: 10 Smoking pack-years: 10.00 Tobacco type: cigarettes Alcohol intake: never Substance use: current Substance use type: marijuana Gender identity (if verbalized by the patient): Female Comments At the time of my signature, I reviewed and agree with the nursing past medical, surgical, social, and family history. There is no relevant family history pertinent to the patient complaint. Exam Narrative: General: Well-developed, obese, in no apparent distress. Head: Normocephalic, atraumatic. Cardio: Regular rate and rhythm, s1 and s2 normal, no murmur appreciated. Resp: Clear to auscultation bilaterally, no rhonchi, rales, wheezing or rubs. Abdomen: Soft, pliable, bowel sounds present in all quadrants, tenderness to palpation in all quadrants, no suprapubic tenderness, no organomegly, no CVAT tenderness. Course Course Emergency Course: Portions of this record may have been created with voice recognition software. Level of Care: Express Care Visit Vital Signs Vital signs: Vital signs reviewed MDM - Nausea/Vomiting/Diarrhea MDM Narrative Medical decision making narrative: At the time of visit patient is tearful on the exam table. She reports that she is needing a back to work and has been sick all week. Complaints of diarrhea nausea and v
[2021-08-16 09:55] VITALS: BP 143/89; PULSE 116; RESP 16; TEMP 37.1; O2SAT 99
[2021-08-16 09:56] VITALS: BP 143/89; PULSE 116; RESP 16; TEMP 37.1; O2SAT 99
== END 2021-08-16 10:32 | disposition home or self-care (01) ==
PROVIDERS: Emergency Provider Nurse Practitioner Family
DX: K52.9 Noninfective gastroenteritis and colitis, unspecified (principal); F17.210 Nicotine dependence, cigarettes, uncomplicated; F41.9 Anxiety disorder, unspecified
CPT/HCPCS: 81003; 87804; 99213; G0463

== ENCOUNTER 2021-09-07 13:02 | Outpatient (CLI) | payer OTHER, SELFPAY ==
--- NOTE | ~2021-09-07 | CT_ITS ---
EXAMINATION: CT abdomen pelvis wo con DATE: 09/07/2021 13:22 INDICATION: Ventral incisional hernia TECHNIQUE: Computed tomography (CT) of the abdomen and pelvis was performed without intravenous contr ast. Automated exposure control and iterative reconstruction technique were employed. The dose-length product was 521.95 mGy-cm. COMPARISON: 12/25/2020 FINDINGS: Lung bases are clear. Heart size is normal. No pericardial or pleural effusion. Prominent geographic regions of decreased attenuation along the anterior and inferior margin of the left and right hepatic lobe consistent with focal hepatic steatosis. Gallbladder, spleen, pancreas, bilateral adrenal gland s and kidneys are normal. Bowels including the appendix are normal. Bladder, anteverted uterus and bi lateral adnexa are unremarkable. No free intraperitoneal gas or fluid. No pathologically enlarged abd ominal/pelvic lymphadenopathy. Postoperative scarring in the anterior abdominal wall slightly to the left and inferior of the umbilicus at the site of a prior small fat-containing ventral hernia. No marie dent residual/recurrent hernia. IMPRESSION: 1. Postoperative change of interval left infraumbilical ventral hernia repair with no residual/recurr ent hernia. 2. Geographic regions of focal hepatic steatosis along the anterior inferior margins of the liver. Reviewed, dictated and finalized at location B. IMPRESSION: 1. Postoperative change of interval left infraumbilical ventral hernia repair w [facility] no residual/recurrent hernia. 2. Geographic regions of focal hepatic steatosis along the anterior inferior ma rgins of the liver.
== END 2021-09-07 13:03 | disposition home or self-care (01) ==
PROVIDERS: Visit Provider Nurse Practitioner Family
DX: K43.2 Incisional hernia without obstruction or gangrene (principal)
CPT/HCPCS: 74176

== ENCOUNTER 2022-02-08 12:46 | Emergency (ER) | payer OTHER, SELFPAY ==
[2022-02-08 13:28] VITALS: BP 147/91; PULSE 100; RESP 18; TEMP 37.4; O2SAT 98
[2022-02-08 14:08] LABS: Basophils Percent Auto 0.3 % (0.2-1.2); Eosinophils Percent Auto 0.3 % (0-4.4); Hematocrit 39.8 % (37.0-47.0); Hemoglobin 13.1 g/dL (12.0-15.0); Immature Granulocyte Absolute 0.02 K/mm3 (0.00-0.031); Immature Granulocyte Percent A 0.2 % (0-0.5); Lymphocytes Absolute Auto 2.04 K/mm3 (0.9-3.2); Lymphocytes Percent Auto 23.6 % (18.3-44.2); Mean Corpuscular HGB Conc 32.9 g/dl (32-36); Mean Corpuscular Hemoglobin 32.5 pg (26-34); Mean Corpuscular Volume 98.8 fl (80-100); Mean Platelet Volume 9.1 fl (7.4-10.4); Monocytes Absolute Auto 0.3 K/mm3 (0.1-0.6); Monocytes Percent Auto 3.9 % (2.6-8.5); Neutrophils Absolute Auto 6.2 K/mm3 (1.3-6.7); Neutrophils Percent Auto 71.7 % (45.5-73.1); Platelet Count Result 401 k/mm3 (150-375); Red Blood Count 4.03 M/mm3 (4.2-5.4); Red Cell Distribution Width 12.7 % (11.5-14.5); White Blood Count 8.6 K/mm3 (4.5-10.0)
[2022-02-08 14:09] LABS: Appearance Urine Clear (Clear); Bilirubin Urine Negative (Negative); Blood Urine Negative (Negative); Color Urine Light Yellow (Yellow); Glucose Urine UA Negative (Negative); Ketones Urine Negative (Negative); Leukocyte Esterase Ur Negative LEU/UL (Negative); Nitrate Urine Negative (Negative); Protein Urine Negative (Negative); Urobilinogen Urine 0.2 mg/dL (<2.0)
[2022-02-08 14:12] LABS: Add Urine Microscopic? NO
[2022-02-08 14:24] LABS: Alanine Aminotransferase 19 U/L (6-35); Albumin Level 4.5 g/dL (3.5-5.1); Alkaline Phosphatase 70 U/L (38-126); Anion Gap 14 mmol/L (8-16); Aspartate Amino Transferase 24 U/L (14-36); Bilirubin,Total 0.3 mg/dL (0.2-1.3); Blood Urea Nitrogen 8 mg/dL (7-17); Calcium 9.1 mg/dL (8.4-10.2); Carbon Dioxide 26 mmol/L (22-30); Chloride 102 mmol/L (98-107); Estimated CRCL calculation 78 ml/min; Estimated Glomerular Filt Rate > 60; Glucose 103 mg/dL (65-110); Lipase 24 U/L (23-300); Potassium 3.7 mmol/L (3.4-5.0); Sodium 142 mmol/L (137-145)
--- NOTE | 2022-02-08 15:21 | ED.GENADULT ---
HPI - General Adult General Chief complaint: Unspecified Stated complaint: all over body pain for months Time Seen by Provider: 02/08/22 14:39 History of Present Illness HPI narrative: Pt is a 36 y/o female, PMHx of HTN, depression/anxiety and chronic pain, presents to ED with C/O 5 month hx of generalized body pain that is sharp and burning, diffusely in the upper and lower extremities bilaterally, worse with movement but also wakes her at times through the night. She reports intermittent fevers, low grade t-max 100.5F, last fever was last week. She reports contacting her PCP last week for these symptoms for the first time since symptom onset and has labs scheduled for Friday. She denies associated CP, focal motor weakness, joint swelling, skin rashes, tick bites, known sick contacts or COV exposures. She has tested a million times since her symptoms began for covid and all test results were negative. She additionally notes that she used to receive Vitamin B12 injections and she wonders if this may be the cause of her symptoms. She is uncertain why the medication was discontinued. She started Neurontin 100 mg long ago for neuropathic pain but notes she only takes it once daily. She denies any additional associated symptoms or modifying factors. Related Data Home Medications Medication Instructions Recorded Confirmed alprazolam 2 mg tablet 1 mg PO TID 09/08/20 11/27/21 duloxetine 40 mg capsule,delayed 1 mg PO BID 09/08/20 11/27/21 release norethindrone acetate 1 mg-ethinyl 1 tablet PO DAILY 09/08/20 11/27/21 estradiol 20 mcg tablet tizanidine 4 mg tablet 4 mg PO DAILY 10/11/20 11/27/21 ergocalciferol (vitamin D2) 1,250 1,250 mcg PO DAILY 12/02/20 11/27/21 mcg (50,000 unit) capsule losartan 100 tablet 08/16/21 11/27/21 mg-hydrochlorothiazide 25 mg tablet gabapentin 100 mg capsule 100 mg PO DAILY 10/31/21 11/27/21 Allergies Allergy/AdvReac Type Severity Reaction Status Date / Time hydrocodone Allergy Mild ITCHING Verified 02/08/22 12:47 ibuprofen AdvReac Unknown AFFECTS IBS Verified 02/08/22 12:47 Review of Systems Review of Systems: refer to HPI ENT: Comments: endorses occasional nasal congestion, no rhinorrhea, no sore throat or cough Cardiovascular: Comments: no CP or SOB Respiratory: Comments: no cough Gastrointestinal: Comments: history of traumatic bowel perforation in 2014 when she reports falling onto a bar stool support, causing the foot post to puncture through her vagina into her bowel. She had a brief colostomy and has since had the colostomy reanastomosed [facility] Past Medical History Medical History Abdominal pain Anxiety Chronic constipation Constipation Coughing Depression Dizziness High cholesterol Hypertension IBS (irritable bowel syndrome) LLQ abdominal pain Triangular fibrocartilage complex injury Wears glasses Surgical History Surgical History History of colostomy with reversal History of endoscopy History of hernia repair JAN 2021 [place] History of laparoscopy Family History Family History Grandparent Heart disease Mother Bipolar 1 disorder Polycythemia Father Hypertension DVT (deep venous thrombosis) Other Depression Social History Social History Smoking packs per day: 1 Smoking cigarettes per day: 20.0 Years smoked: 10 Smoking pack-years: 10.00 Smoking status: Current every day smoker Tobacco type: cigarettes Alcohol intake: never Substance use: current Substance use type: marijuana Gender identity (if verbalized by the patient): Female Exam Const: General: cooperative, healthy appearing, alert, awake, Physically active and overweight Orientation/consciousness: oriented to person, oriented to plac
[2022-02-08 15:56] VITALS: BP 129/89; PULSE 71; RESP 19; O2SAT 100
== END 2022-02-08 15:57 | disposition home or self-care (01) ==
PROVIDERS: Emergency Medicine; Emergency Provider Nurse Practitioner Family; PCP Nurse Practitioner Family
DX: M79.2 Neuralgia and neuritis, unspecified (principal); E78.00 Pure hypercholesterolemia, unspecified; I10 Essential (primary) hypertension; K58.9 Irritable bowel syndrome, unspecified; F41.9 Anxiety disorder, unspecified; F32.A Depression, unspecified; F17.210 Nicotine dependence, cigarettes, uncomplicated
CPT/HCPCS: 36415; 80053; 81003; 83690; 85025; 99283

== ENCOUNTER 2022-02-18 12:08 | Outpatient (CLI) | payer OTHER, SELFPAY ==
--- NOTE | ~2022-02-18 | MMUS_ITS ---
EXAMINATION: MM diagnostic shanice RT w seth, US breast RT complete HISTORY: Clear right nipple discharge. TECHNIQUE: Additional 3-D tomosynthesis images of the right breast were performed and synthetic 2-D i mages were generated. CAD analysis was submitted and interpreted. High resolution complete right [address]lex[address] st ultrasound was performed. COMPARISON: No prior studies for comparison. BREAST PARENCHYMAL COMPOSITION: Breast composed of scattered areas of fibroglandular density FINDINGS: MAMMOGRAPHIC FINDINGS: There are no suspicious masses, calcifications or architectural distortion in the right breast to sug gest malignancy. ULTRASOUND: Complete right breast US of all 4 quadrants of the breasts and retroareolar region was reviewed. Norm al heterogeneous echotexture without focal solid or cystic mass. IMPRESSION: 1. No evidence for malignancy in the right breast. 2. Routine yearly screening mammogram and regular clinical breast examination are recommended. 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 No evidence for malignancy in the right breast. 2. Routine yearly screening mammogram and regular clinical breast examination a re recommended. BI-RADS Category 1: Negative
== END 2022-02-18 12:09 | disposition home or self-care (01) ==
LOC: ANHIMG 12:09
PROVIDERS: PCP Family Medicine; Visit Provider Family Medicine
DX: N64.52 Nipple discharge (principal)
CPT/HCPCS: 76641; 77061; 77065; G0279

== ENCOUNTER 2022-03-08 10:17 | Emergency (ER) | payer OTHER, SELFPAY ==
[2022-03-08 10:26] VITALS: BP 116/91; PULSE 78; RESP 16; TEMP 37.3; O2SAT 99
--- NOTE | 2022-03-08 11:17 | ED.URI ---
HPI - URI/Sore Throat General Chief Complaint: Upper Respiratory Infection Stated Complaint: diarrhea, upset stomach, ear pain, fever Time Seen by Provider: 03/08/22 11:17 Source: patient Mode of arrival: ambulatory Limitations: no limitations History of Present Illness HPI Narrative: 36-year-old female presents with complaint of nausea, vomiting, diarrhea, fatigue, body aches, sore throat, nasal congestion, fatigue for 3 days. Taking Zofran with little relief. Is able to keep down water. Needs work note. No abdominal pain at this time. All systems reviewed and negative except as noted above. Related Data Home Medications Medication Instructions Recorded Confirmed alprazolam 2 mg tablet 1 mg PO TID 09/08/20 03/08/22 duloxetine 40 mg capsule,delayed 1 mg PO BID 09/08/20 03/08/22 release norethindrone acetate 1 mg-ethinyl 1 tablet PO DAILY 09/08/20 03/08/22 estradiol 20 mcg tablet tizanidine 4 mg tablet 4 mg PO DAILY 10/11/20 03/08/22 ergocalciferol (vitamin D2) 1,250 1,250 mcg PO DAILY 12/02/20 03/08/22 mcg (50,000 unit) capsule losartan 100 1 tablet PO DAILY 08/16/21 03/08/22 mg-hydrochlorothiazide 25 mg tablet gabapentin 100 mg capsule 100 mg PO DAILY 10/31/21 03/08/22 Allergies Allergy/AdvReac Type Severity Reaction Status Date / Time hydrocodone Allergy Mild ITCHING Verified 03/08/22 10:31 ibuprofen AdvReac Unknown AFFECTS IBS Verified 03/08/22 10:31 Review of Systems Review of Systems: CONSTITUTIONAL: Reports fever, chills, or sweats. EYES: Denies visual changes, redness, or discharge. ENT: reports rhinorrhea, congestion, sore throat, or otalgia. CARDIOVASCULAR: Denies chest pain, palpitations, or edema. RESPIRATORY: reports cough. Denies dyspnea. GASTROINTESTINAL: Denies abdominal pain. Reports nausea, vomiting, or diarrhea. GENITOURINARY: Denies dysuria or hematuria. SKIN: Denies rash or itching. MUSCULOSKELETAL: Denies back pain, joint pain, or myalgia. NEUROLOGIC: Denies headache, numbness, or weakness. PSYCHIATRIC: Denies anxiety or depression. All other systems reviewed are negative, except as documented in HPI. [facility] Past Medical History Medical History Abdominal pain Anxiety Chronic constipation Constipation Coughing Depression Dizziness High cholesterol Hypertension IBS (irritable bowel syndrome) LLQ abdominal pain Triangular fibrocartilage complex injury Wears glasses Surgical History Surgical History History of colostomy with reversal History of endoscopy History of hernia repair JAN 2021 [place] History of laparoscopy Family History Family History Grandparent Heart disease Mother Bipolar 1 disorder Polycythemia Father Hypertension DVT (deep venous thrombosis) Other Depression Social History Social History Smoking packs per day: 1 Smoking cigarettes per day: 20.0 Years smoked: 10 Smoking pack-years: 10.00 Smoking status: Current every day smoker Tobacco type: cigarettes Alcohol intake: never Substance use: current Substance use type: marijuana Gender identity (if verbalized by the patient): Female Comments At time of signature, agree with nursing past medical, surgical, social and family history. There is no relevant family history pertinent to the presenting complaint. Exam Narrative: GENERAL: This is a well-nourished, well-developed patient. Patient ill-appearing but no distress. HEAD: normocephalic, atraumatic. EYES: PERRL. Sclera clear/white. Vision is grossly intact. EARS: External ears normal, auditory canals clear and without drainage, TMs normal without perforation. Hearing grossly intact. NOSE: External nose normal with no obvious nasal discharge, nares without redness, no rhinorrhe
== END 2022-03-08 11:31 | disposition home or self-care (01) ==
PROVIDERS: Emergency Provider Nurse Practitioner Family; PCP Family Medicine
DX: B34.9 Viral infection, unspecified (principal); I10 Essential (primary) hypertension; F17.210 Nicotine dependence, cigarettes, uncomplicated; Z20.822 Contact with and (suspected) exposure to COVID-19
CPT/HCPCS: 87426; 87804; 99213; C9803; G0463

== ENCOUNTER 2022-03-22 13:22 | Emergency (ER) | payer OTHER, SELFPAY ==
[2022-03-22 13:43] VITALS: BP 111/66; PULSE 81; RESP 16; TEMP 36.5; O2SAT 99
--- NOTE | 2022-03-22 14:14 | ED.ABDPAIN ---
HPI - Abdominal Pain General Chief Complaint: Abdominal Pain Stated Complaint: Abdominal Pain Time Seen by Provider: 03/22/22 13:50 Source: patient Mode of arrival: ambulatory Limitations: no limitations History of Present Illness HPI narrative: Ms. Cary is a 36-year-old female patient presenting to the clinic today with complaints of generalized abdominal pain, nausea, chills, fever x2 weeks. She reports that she had a a GI appointment on Friday however she had a fever at that time so they would not allow her to be seen in the office. She has a history of IBS, hernia repair, colostomy, colostomy revision. States most pain is in the left lower quadrant however she has different sensations of pain and different parts of her abdomen. When asked about quality of pain she says she is having burning, stabbing, aching, and cramping. Last bowel movement was this morning and she states that the stool was initially hard then soft then liquid. Denies any vaginal discharge or concerns. Related Data Home Medications Medication Instructions Recorded Confirmed alprazolam 2 mg tablet 1 mg PO TID 09/08/20 03/22/22 norethindrone acetate 1 mg-ethinyl 1 tablet PO DAILY 09/08/20 03/22/22 estradiol 20 mcg tablet gabapentin 100 mg capsule 100 mg PO DAILY 10/31/21 03/22/22 Allergies Allergy/AdvReac Type Severity Reaction Status Date / Time hydrocodone Allergy Mild ITCHING Verified 03/22/22 13:59 ibuprofen AdvReac Unknown AFFECTS IBS Verified 03/22/22 13:59 Review of Systems Review of Systems: Pertinent positives per HPI. Patient denies any fever, chills, rash, headache, visual changes, dizziness, cough, runny nose, sore throat, shortness of breath, chest pain, palpitations, nausea, vomiting, diarrhea, constipation, PMFSH Past Medical History Medical History Abdominal pain Anxiety Chronic constipation Constipation Coughing Depression Dizziness High cholesterol Hypertension IBS (irritable bowel syndrome) LLQ abdominal pain Triangular fibrocartilage complex injury Wears glasses Surgical History Surgical History History of colostomy with reversal History of endoscopy History of hernia repair JAN 2021 [place] History of laparoscopy Family History Family History Grandparent Heart disease Mother Bipolar 1 disorder Polycythemia Father Hypertension DVT (deep venous thrombosis) Other Depression Social History Social History Smoking packs per day: 1 Smoking cigarettes per day: 20.0 Years smoked: 10 Smoking pack-years: 10.00 Smoking status: Current every day smoker Tobacco type: cigarettes Alcohol intake: never Substance use: current Substance use type: marijuana Gender identity (if verbalized by the patient): Female Comments At the time of my signature, I reviewed and agree with the nursing past medical, surgical, social, and family history. There is no relevant family history pertinent to the patient complaint. Course Course Emergency Course: Portions of this record may have been created with voice recognition software. Level of Care: Express Care Visit Vital Signs Vital signs: Vital Signs Temperature 36.5 C 03/22/22 13:43 Pulse Rate 81 03/22/22 13:43 Respiratory Rate 16 03/22/22 13:43 Blood Pressure 111/66 03/22/22 13:43 Pulse Oximetry 99 03/22/22 13:43 Oxygen Delivery Room Air 03/22/22 13:43 Temperature 36.5 C 03/22/22 13:43 Pulse Rate 81 03/22/22 13:43 Respiratory Rate 16 03/22/22 13:43 Blood Pressure 111/66 03/22/22 13:43 Pulse Oximetry 99 03/22/22 13:43 Oxygen Delivery Room Air 03/22/22 13:43 Vital signs reviewed MDM - Abdominal Pain MDM Narrative Medical decision making narrative: At the t
== END 2022-03-22 14:29 | disposition short-term general hospital (02) ==
LOC: EXPCOLL 13:25
PROVIDERS: Emergency Provider Nurse Practitioner Family; PCP Family Medicine
DX: R10.32 Left lower quadrant pain (principal); R10.84 Generalized abdominal pain; I10 Essential (primary) hypertension; F17.210 Nicotine dependence, cigarettes, uncomplicated
CPT/HCPCS: 81003; 99212; G0463

== ENCOUNTER 2022-03-22 14:44 | Emergency (ER) | payer OTHER, SELFPAY ==
[2022-03-22 14:53] VITALS: BP 132/83; PULSE 71; RESP 17; TEMP 36.6; O2SAT 100
[2022-03-22 17:06] LABS: Basophils Percent Auto 0.4 % (0.2-1.2); Eosinophils Absolute Auto 0.1 K/mm3 (0-0.3); Eosinophils Percent Auto 0.5 % (0-4.4); Hematocrit 41.7 % (37.0-47.0); Hemoglobin 14.1 g/dL (12.0-15.0); Immature Granulocyte Absolute 0.03 K/mm3 (0.00-0.031); Immature Granulocyte Percent A 0.3 % (0-0.5); Lymphocytes Absolute Auto 2.97 K/mm3 (0.9-3.2); Lymphocytes Percent Auto 30.3 % (18.3-44.2); Mean Corpuscular HGB Conc 33.8 g/dl (32-36); Mean Corpuscular Hemoglobin 32.5 pg (26-34); Mean Corpuscular Volume 96.1 fl (80-100); Monocytes Absolute Auto 0.4 K/mm3 (0.1-0.6); Monocytes Percent Auto 4.1 % (2.6-8.5); Neutrophils Absolute Auto 6.3 K/mm3 (1.3-6.7); Neutrophils Percent Auto 64.4 % (45.5-73.1); Platelet Count Result 398 k/mm3 (150-375); Red Blood Count 4.34 M/mm3 (4.2-5.4); Red Cell Distribution Width 12.6 % (11.5-14.5); White Blood Count 9.8 K/mm3 (4.5-10.0)
[2022-03-22 17:16] LABS: Alanine Aminotransferase 17 U/L (6-35); Albumin Level 4.6 g/dL (3.5-5.1); Alkaline Phosphatase 70 U/L (38-126); Anion Gap 8 mmol/L (8-16); Aspartate Amino Transferase 25 U/L (14-36); Bilirubin,Total 0.4 mg/dL (0.2-1.3); Blood Urea Nitrogen 9 mg/dL (7-17); Calcium 9.2 mg/dL (8.4-10.2); Carbon Dioxide 25 mmol/L (22-30); Chloride 107 mmol/L (98-107); Estimated CRCL calculation 87 ml/min; Estimated Glomerular Filt Rate > 60; Glucose 104 mg/dL (65-110); Potassium 3.6 mmol/L (3.4-5.0); Sodium 140 mmol/L (137-145)
[2022-03-22 17:40] LABS: Influenza A QL RT-PCR Negative (Negative); Influenza B QL RT-PCR Negative (Negative); SARS-CoV-2 RNA PCR Negative
--- NOTE | 2022-03-22 17:51 | ED.NAVMDI ---
HPI - Nausea/Vomiting/Diarrhea General Chief complaint: Nausea/Vomiting/Diarrhea Stated complaint: n/v/d, fever, constipation, abd pn Time Seen by Provider: 03/22/22 17:16 History of Present Illness HPI Narrative: Patient is a 36-year-old female with a history of ventral hernia repair presenting with abdominal pain. Patient states that ever since she had her hernia repaired about a year ago she has had persistent abdominal pain. States that it is in the region that she had a hernia previously. States that she has seen her surgeon but nothing was done. Patient states that she has had a fever off and on for the last several weeks. She actually had an appointment with another surgeon 2 days ago but when she arrived for her appointment her temperature was 100.6F so they sent her home. Patient states that her abdominal pain has not changed in any way. She denies nausea or vomiting, diarrhea, constipation, vaginal bleeding or discharge. No headaches, chest pain, shortness of breath, lightheadedness. Related Data Home Medications Medication Instructions Recorded Confirmed alprazolam 2 mg tablet 1 mg PO TID 09/08/20 03/22/22 norethindrone acetate 1 mg-ethinyl 1 tablet PO DAILY 09/08/20 03/22/22 estradiol 20 mcg tablet gabapentin 100 mg capsule 100 mg PO DAILY 10/31/21 03/22/22 Allergies Allergy/AdvReac Type Severity Reaction Status Date / Time hydrocodone Allergy Mild ITCHING Verified 03/22/22 17:19 ibuprofen AdvReac Unknown AFFECTS IBS Verified 03/22/22 17:19 Review of Systems Review of Systems: All systems reviewed & are unremarkable except as noted in HPI and below PMFSH Past Medical History Medical History Abdominal pain Anxiety Chronic constipation Constipation Coughing Depression Dizziness High cholesterol Hypertension IBS (irritable bowel syndrome) LLQ abdominal pain Triangular fibrocartilage complex injury Wears glasses Surgical History Surgical History History of colostomy with reversal History of endoscopy History of hernia repair JAN 2021 [place] History of laparoscopy Family History Family History Grandparent Heart disease Mother Bipolar 1 disorder Polycythemia Father Hypertension DVT (deep venous thrombosis) Other Depression Social History Social History Smoking packs per day: 1 Smoking cigarettes per day: 20.0 Years smoked: 10 Smoking pack-years: 10.00 Smoking status: Current every day smoker Tobacco type: cigarettes Alcohol intake: never Substance use: current Substance use type: marijuana Gender identity (if verbalized by the patient): Female Exam Narrative: GENERAL: Well-appearing, well-nourished, and in no acute distress. HEAD: Normocephalic, atraumatic. EYES: PERRLA and EOMI. ENT: Nares clear, no rhinorrhea or epistaxis. Mucous membranes moist. NECK: Supple. CHEST: Clear to auscultation. No respiratory distress. HEART: Regular rate and rhythm. No murmur heard. Normal peripheral pulses. ABDOMEN: Soft, mild diffuse tenderness with no guarding or rebound, nondistended, normal active bowel sounds. Healed colostomy scar on left abdomen, no other skin abnormalities EXTREMITIES: Normal range of motion. No edema. SKIN: Warm, dry, no rash. NEURO: No focal deficits. Alert and oriented x3. PSYCH: Normal mood and affect. Course Vital Signs Vital signs: Vital Signs Temperature 97.8 F 03/22/22 14:53 Pulse Rate 71 03/22/22 14:53 Respiratory Rate 17 03/22/22 14:53 Blood Pressure 132/83 03/22/22 14:53 Pulse Oximetry 100 03/22/22 14:53 Oxygen Delivery Room Air 03/22/22 14:53 Temperature 97.8 F 03/22/22 14:53 Pulse Rate 71 03/22/22 14:53 Respiratory Rate 17 03/22/22 14:53 Blood Pressure 132
--- NOTE | 2022-03-22 18:06 | PC.NURSE ---
1700 Pt came up to intake several times, crying, stating excruciating pain and inquiring about waiting, asking for medication, CT scan. Pt was brought back into triage for blood draw. cafeteria aide commented on her being upset and our ability to get her back any faster. Pt was sent out into the ED waiting room and became upset after being told she would still have to wait. Pt informed that her vital signs were stable and ED Triage and Intake were regularly evaluating pt LOC. Inform that ED is doing everything possible to pull her back but unable to due to boarded pt in the ED. Pt was called back to a room shortly after over on C side for further evaluation.
== END 2022-03-22 18:44 | disposition home or self-care (01) ==
PROVIDERS: Emergency Medicine; Emergency Provider Emergency Medicine; PCP Family Medicine
DX: R10.9 Unspecified abdominal pain (principal); Z20.822 Contact with and (suspected) exposure to COVID-19; E78.00 Pure hypercholesterolemia, unspecified; I10 Essential (primary) hypertension; K58.1 Irritable bowel syndrome with constipation; F41.9 Anxiety disorder, unspecified; F17.210 Nicotine dependence, cigarettes, uncomplicated
CPT/HCPCS: 36415; 80053; 81003; 85025; 87636; 99283

== ENCOUNTER 2022-05-06 13:57 | Emergency (ER) | payer OTHER, SELFPAY ==
[2022-05-06 14:02] VITALS: BP 163/73; PULSE 80; RESP 18; TEMP 36.5; O2SAT 100
--- NOTE | 2022-05-06 14:24 | ED.URI ---
HPI - URI/Sore Throat General Chief Complaint: Upper Respiratory Infection Stated Complaint: Sinus Infection Time Seen by Provider: 05/06/22 14:26 Source: patient, RN notes reviewed and old records reviewed Mode of arrival: ambulatory Limitations: no limitations History of Present Illness HPI Narrative: 37-year-old female presents to the [facility] with complaints of a sinus infection. Recently finished Levaquin. States that she still having congestion. No other treatment prior to arrival. Patient is declining the use of steroids. Symptoms for several weeks MD elicited complaint: rhinorrhea and nasal congestion Related Data Home Medications Medication Instructions Recorded Confirmed alprazolam 2 mg tablet 1 mg PO TID 09/08/20 05/06/22 norethindrone acetate 1 mg-ethinyl 1 tablet PO DAILY 09/08/20 05/06/22 estradiol 20 mcg tablet gabapentin 100 mg capsule 100 mg PO DAILY 10/31/21 05/06/22 ergocalciferol (vitamin D2) 1,250 1,250 mcg PO DAILY 05/06/22 05/06/22 mcg (50,000 unit) capsule losartan 100 1 tablet PO DAILY 05/06/22 05/06/22 mg-hydrochlorothiazide 25 mg tablet tizanidine 4 mg tablet 4 mg PO DIRECTED 05/06/22 05/06/22 Allergies Allergy/AdvReac Type Severity Reaction Status Date / Time hydrocodone Allergy Mild ITCHING Verified 05/06/22 13:59 ibuprofen AdvReac Unknown AFFECTS IBS Verified 05/06/22 13:59 Review of Systems Review of Systems: All systems reviewed & are unremarkable except as noted in HPI and below Constitutional: Constitutional: Reports no additional constitutional complaints Eyes: Eyes: Reports no additional eye complaints ENT: Reports as per HPI and Reports nasal congestion Cardiovascular: Cardiovascular: Reports no additional cardiovascular complaints, Denies chest pain and Denies dyspnea Respiratory: Respiratory: Reports no additional respiratory complaints, Denies chest congestion, Denies cough and Denies dyspnea Gastrointestinal: Gastrointestinal: Reports no additional gastrointestinal complaints, Denies abdominal pain, Denies nausea and Denies vomiting Musculoskeletal: Musculoskeletal: Reports no additional musculoskeletal complaints Integumentary/Breasts: Skin/Breast: Reports system reviewed and no additional complaints, except as docu Neurologic: Reports system reviewed and no additional complaints, except as documented Psychiatric: Psychiatric: Reports no additional psychiatric complaints Allergic/Immunologic: Allergic/Immunologic: Reports no additional allergic/immunologic complaints PMFSH Past Medical History Medical History Abdominal pain Anxiety Chronic constipation Constipation Coughing Depression Dizziness High cholesterol Hypertension IBS (irritable bowel syndrome) LLQ abdominal pain Triangular fibrocartilage complex injury Wears glasses Surgical History Surgical History History of colostomy with reversal History of endoscopy History of hernia repair JAN 2021 [place] History of laparoscopy Family History Family History Grandparent Heart disease Mother Bipolar 1 disorder Polycythemia Father Hypertension DVT (deep venous thrombosis) Other Depression Social History Social History Smoking packs per day: 1 Smoking cigarettes per day: 20.0 Years smoked: 10 Smoking pack-years: 10.00 Smoking status: Current every day smoker Tobacco type: cigarettes Alcohol intake: never Substance use: current Substance use type: marijuana Living arrangements: alone Occupation/Education: unemployed Gender identity (if verbalized by the patient): Female Comments At the time of my signature, I reviewed and agree with the nursing past medical, surgical, social, and family history. There is no relevant family
== END 2022-05-06 14:43 | disposition home or self-care (01) ==
PROVIDERS: Emergency Provider Nurse Practitioner
DX: J32.9 Chronic sinusitis, unspecified (principal); F17.210 Nicotine dependence, cigarettes, uncomplicated; E78.00 Pure hypercholesterolemia, unspecified; I10 Essential (primary) hypertension; F41.9 Anxiety disorder, unspecified
CPT/HCPCS: 87081; 87880; 99213; G0463

== ENCOUNTER 2022-07-07 11:57 | Emergency (ER) | payer OTHER, SELFPAY ==
[2022-07-07 12:10] VITALS: BP 116/71; PULSE 93; RESP 16; TEMP 36.9; O2SAT 99
--- NOTE | 2022-07-07 12:53 | ED.URI ---
HPI - URI/Sore Throat General Chief Complaint: Upper Respiratory Infection Stated Complaint: Cough/Sinus Time Seen by Provider: 07/07/22 12:30 Source: patient Mode of arrival: ambulatory Limitations: no limitations History of Present Illness HPI Narrative: 37-year-old female presents with complaint of cough, fatigue for the past 3-4 days. Afebrile. Patient reports that she caught bronchitis from her brother . Patient has an albuterol inhaler that she has currently been using. She is not taking any other [id number]-occwzyw medications to treat her symptoms. She is speaking in full sentences. Denies chest pain and shortness of breath. Patient is a current every day smoker for the past 20 years. Works her 1st shift at [employer] tomorrow and wants to make sure that she is not contagious. All systems reviewed and negative except as noted above. Related Data Home Medications Medication Instructions Recorded Confirmed alprazolam 2 mg tablet 1 mg PO TID 09/08/20 07/07/22 norethindrone acetate 1 mg-ethinyl 1 tablet PO DAILY 09/08/20 07/07/22 estradiol 20 mcg tablet gabapentin 100 mg capsule 100 mg PO DAILY 10/31/21 07/07/22 ergocalciferol (vitamin D2) 1,250 1,250 mcg PO DAILY 05/06/22 07/07/22 mcg (50,000 unit) capsule losartan 100 1 tablet PO DAILY 05/06/22 07/07/22 mg-hydrochlorothiazide 25 mg tablet tizanidine 4 mg tablet 4 mg PO DIRECTED 05/06/22 07/07/22 amlodipine 5 mg tablet 5 mg DAILY 07/07/22 07/07/22 doxepin 25 mg capsule 25 mg QPM 07/07/22 07/07/22 Allergies Allergy/AdvReac Type Severity Reaction Status Date / Time hydrocodone Allergy Mild ITCHING Verified 07/07/22 12:14 ibuprofen AdvReac Unknown AFFECTS IBS Verified 07/07/22 12:14 Review of Systems Review of Systems: CONSTITUTIONAL: Denies fever, chills, or sweats. EYES: Denies visual changes, redness, or discharge. ENT: reports rhinorrhea, congestion. Denies sore throat, or otalgia. CARDIOVASCULAR: Denies chest pain, palpitations, or edema. RESPIRATORY: Reports cough. Denies dyspnea. GASTROINTESTINAL: Denies abdominal pain, nausea, vomiting, or diarrhea. GENITOURINARY: Denies dysuria or hematuria. SKIN: Denies rash or itching. MUSCULOSKELETAL: Denies back pain, joint pain, or myalgia. NEUROLOGIC: Denies headache, numbness, or weakness. PSYCHIATRIC: Denies anxiety or depression. All other systems reviewed are negative, except as documented in HPI. [facility] Past Medical History Medical History Abdominal pain Anxiety Chronic constipation Constipation Coughing Depression Dizziness High cholesterol Hypertension IBS (irritable bowel syndrome) LLQ abdominal pain Triangular fibrocartilage complex injury Wears glasses Surgical History Surgical History History of colostomy with reversal History of endoscopy History of hernia repair JAN 2021 [place] History of laparoscopy Family History Family History Grandparent Heart disease Mother Bipolar 1 disorder Polycythemia Father Hypertension DVT (deep venous thrombosis) Other Depression Social History Social History Smoking packs per day: 1 Smoking cigarettes per day: 20.0 Years smoked: 10 Smoking pack-years: 10.00 Smoking status: Current every day smoker Tobacco type: cigarettes Alcohol intake: never Substance use: current Substance use type: marijuana Living arrangements: alone Occupation/Education: unemployed Gender identity (if verbalized by the patient): Female Comments At time of signature, agree with nursing past medical, surgical, social and family history. There is no relevant family history pertinent to the presenting complaint. Exam Narrative: GENERAL: This is a well-nourished, well-developed patient, in no appar
== END 2022-07-07 12:54 | disposition home or self-care (01) ==
PROVIDERS: Emergency Provider Nurse Practitioner Family; PCP Family Medicine Adolescent Medicine
DX: J06.9 Acute upper respiratory infection, unspecified (principal); F17.210 Nicotine dependence, cigarettes, uncomplicated; F12.90 Cannabis use, unspecified, uncomplicated; E78.00 Pure hypercholesterolemia, unspecified; I10 Essential (primary) hypertension; F41.9 Anxiety disorder, unspecified
CPT/HCPCS: 99213; G0463

== ENCOUNTER 2022-07-11 17:28 | Emergency (ER) | payer OTHER, SELFPAY ==
[2022-07-11 17:45] VITALS: BP 153/104; PULSE 136; RESP 16; TEMP 36.7; O2SAT 99
--- NOTE | 2022-07-11 17:53 | ED.URI ---
HPI - URI/Sore Throat General Chief Complaint: Upper Respiratory Infection Stated Complaint: UTI Time Seen by Provider: 07/11/22 18:16 Source: patient and RN notes reviewed Mode of arrival: ambulatory Limitations: no limitations History of Present Illness HPI Narrative: 37-year-old female presents with multiple complaints. She reports ongoing cough, runny nose for the past 5-6 days, she was seen here 2 days ago was prescribed Medrol Dosepak and benzonatate, she stopped taking the Medrol Dosepak because it made her feel jittery. She reports she coughed very hard today and she was incontinent of urine. She reports she has also been having some mild dysuria and frequency. She reports history of UTIs. She denies back pain or abdominal pain, fever, chills, sweats. She denies shortness of breath. MD elicited complaint: cough and other (Urine frequency) Related Data Home Medications Medication Instructions Recorded Confirmed alprazolam 2 mg tablet 1 mg PO TID 09/08/20 07/07/22 norethindrone acetate 1 mg-ethinyl 1 tablet PO DAILY 09/08/20 07/07/22 estradiol 20 mcg tablet gabapentin 100 mg capsule 100 mg PO DAILY 10/31/21 07/07/22 ergocalciferol (vitamin D2) 1,250 1,250 mcg PO DAILY 05/06/22 07/07/22 mcg (50,000 unit) capsule losartan 100 1 tablet PO DAILY 05/06/22 07/07/22 mg-hydrochlorothiazide 25 mg tablet tizanidine 4 mg tablet 4 mg PO DIRECTED 05/06/22 07/07/22 amlodipine 5 mg tablet 5 mg DAILY 07/07/22 07/07/22 doxepin 25 mg capsule 25 mg QPM 07/07/22 07/07/22 Allergies Allergy/AdvReac Type Severity Reaction Status Date / Time hydrocodone Allergy Mild ITCHING Verified 07/11/22 17:41 ibuprofen AdvReac Unknown AFFECTS IBS Verified 07/11/22 17:41 Review of Systems Review of Systems: CONSTITUTIONAL: Denies malaise, chills, sweats, or fever. EYES: Denies visual changes, redness, or discharge. ENT: Reports rhinorrhea, congestion, sore throat. CARDIOVASCULAR: Denies chest pain, palpitations, or edema. RESPIRATORY: Reports cough. Denies dyspnea. GASTROINTESTINAL: Denies abdominal pain, nausea, vomiting, diarrhea SKIN: Denies rash or itching. : Reports mild dysuria and frequency MUSCULOSKELETAL: Denies myalgia. NEUROLOGIC: Denies headache. All systems reviewed & are unremarkable except as noted in HPI and below PMFSH Past Medical History Medical History Abdominal pain Anxiety Chronic constipation Constipation Coughing Depression Dizziness High cholesterol Hypertension IBS (irritable bowel syndrome) LLQ abdominal pain Triangular fibrocartilage complex injury Wears glasses Surgical History Surgical History History of colostomy with reversal History of endoscopy History of hernia repair JAN 2021 [place] History of laparoscopy Family History Family History Grandparent Heart disease Mother Bipolar 1 disorder Polycythemia Father Hypertension DVT (deep venous thrombosis) Other Depression Social History Social History Smoking packs per day: 1 Smoking cigarettes per day: 20.0 Years smoked: 10 Smoking pack-years: 10.00 Smoking status: Current every day smoker Tobacco type: cigarettes Alcohol intake: never Substance use: current Substance use type: marijuana Living arrangements: alone Occupation/Education: unemployed Gender identity (if verbalized by the patient): Female Comments At time of signature, agree with nursing past medical, surgical, social and family history. There is no relevant family history pertinent to the presenting complaint Exam Narrative: GENERAL: Well-appearing, well-nourished, and in no acute distress. HEAD: Normocephalic EYES: PERRLA, conjunctivae clear ENT: Nares clear, turbinates edematous and erythematous, clear
[2022-07-11 18:00] VITALS: BP 151/104; PULSE 124
--- NOTE | 2022-07-11 18:03 | PC.NURSE ---
Pt states, she has not taken her anxiety medication today.
== END 2022-07-11 18:29 | disposition home or self-care (01) ==
PROVIDERS: Emergency Provider Nurse Practitioner; PCP Family Medicine Adolescent Medicine
DX: J06.9 Acute upper respiratory infection, unspecified (principal); R30.0 Dysuria; Z20.822 Contact with and (suspected) exposure to COVID-19; F17.210 Nicotine dependence, cigarettes, uncomplicated; F12.90 Cannabis use, unspecified, uncomplicated; E78.00 Pure hypercholesterolemia, unspecified; I10 Essential (primary) hypertension; Z87.440 Personal history of urinary (tract) infections
CPT/HCPCS: 81003; 87081; 87086; 87088; 87426; 87804; 87880; 99213; C9803; G0463

== ENCOUNTER 2022-07-13 12:41 | Emergency (ER) | payer OTHER, SELFPAY ==
[2022-07-13 12:54] VITALS: BP 127/78; PULSE 103; RESP 16; TEMP 37.6; O2SAT 99
--- NOTE | 2022-07-13 13:10 | ED.GENADULT ---
HPI - General Adult General Chief complaint: Upper Respiratory Infection Stated complaint: uri Time Seen by Provider: 07/13/22 13:10 Source: patient, RN notes reviewed and old records reviewed Mode of arrival: ambulatory Limitations: no limitations History of Present Illness HPI narrative: 37-year-old female presents to the [facility] with a sore throat. patient states that she still having a stroke sore throat. Patient states that she is upset that she is not feeling better and that her culture for her strep that was done 2 days ago was not back. Requesting a work note. reswabbed, discussed this is probably viral with patient. Patient had been prescribed steroids, only took it for 1 day because it made her too ?jittery. ? Onset (ago): day(s) Related Data Home Medications Medication Instructions Recorded Confirmed alprazolam 2 mg tablet 1 mg PO TID 09/08/20 07/13/22 norethindrone acetate 1 mg-ethinyl 1 tablet PO DAILY 09/08/20 07/13/22 estradiol 20 mcg tablet gabapentin 100 mg capsule 100 mg PO DAILY 10/31/21 07/13/22 ergocalciferol (vitamin D2) 1,250 1,250 mcg PO DAILY 05/06/22 07/13/22 mcg (50,000 unit) capsule losartan 100 1 tablet PO DAILY 05/06/22 07/13/22 mg-hydrochlorothiazide 25 mg tablet tizanidine 4 mg tablet 4 mg PO DIRECTED 05/06/22 07/13/22 amlodipine 5 mg tablet 5 mg DAILY 07/07/22 07/13/22 doxepin 25 mg capsule 25 mg QPM 07/07/22 07/13/22 Allergies Allergy/AdvReac Type Severity Reaction Status Date / Time hydrocodone Allergy Mild ITCHING Verified 07/13/22 12:50 ibuprofen AdvReac Unknown AFFECTS IBS Verified 07/13/22 12:50 Review of Systems Review of Systems: All systems reviewed & are unremarkable except as noted in HPI and below Constitutional: Constitutional: Reports no additional constitutional complaints Eyes: Eyes: Reports no additional eye complaints ENT: Reports as per HPI and Reports sore throat Cardiovascular: Cardiovascular: Reports no additional cardiovascular complaints, Denies chest pain and Denies dyspnea Respiratory: Respiratory: Reports no additional respiratory complaints, Denies chest congestion, Denies cough and Denies dyspnea Gastrointestinal: Gastrointestinal: Reports no additional gastrointestinal complaints, Denies abdominal pain, Denies nausea and Denies vomiting Musculoskeletal: Musculoskeletal: Reports no additional musculoskeletal complaints Integumentary/Breasts: Skin/Breast: Reports system reviewed and no additional complaints, except as docu Neurologic: Reports system reviewed and no additional complaints, except as documented Psychiatric: Psychiatric: Reports no additional psychiatric complaints Allergic/Immunologic: Allergic/Immunologic: Reports no additional allergic/immunologic complaints PMFSH Past Medical History Medical History Abdominal pain Anxiety Chronic constipation Constipation Coughing Depression Dizziness High cholesterol Hypertension IBS (irritable bowel syndrome) LLQ abdominal pain Triangular fibrocartilage complex injury Wears glasses Surgical History Surgical History History of colostomy with reversal History of endoscopy History of hernia repair JAN 2021 [place] History of laparoscopy Family History Family History Grandparent Heart disease Mother Bipolar 1 disorder Polycythemia Father Hypertension DVT (deep venous thrombosis) Other Depression Social History Social History Smoking packs per day: 1 Smoking cigarettes per day: 20.0 Years smoked: 10 Smoking pack-years: 10.00 Smoking status: Current every day smoker Tobacco type: cigarettes Alcohol intake: never Substance use: current Substance use type: marijuana Living arrangements: alone Occupation/Education: une
== END 2022-07-13 13:33 | disposition home or self-care (01) ==
PROVIDERS: Emergency Provider Nurse Practitioner
DX: J02.9 Acute pharyngitis, unspecified (principal); F17.210 Nicotine dependence, cigarettes, uncomplicated; F41.9 Anxiety disorder, unspecified; E78.00 Pure hypercholesterolemia, unspecified; I10 Essential (primary) hypertension
CPT/HCPCS: 87081; 87880; 99213; G0463

== ENCOUNTER 2022-08-14 10:14 | Emergency (ER) | payer OTHER, SELFPAY ==
--- NOTE | ~2022-08-14 | XR_ITS ---
EXAMINATION: XR abdomen obstructive series DATE: 08/14/2022 10:54 INDICATION: Bilateral lower abdominal pain. TECHNIQUE: Supine and upright views of the abdomen. FINDINGS: 12/22/2013 The visualized lung parenchyma is normal.. There is a nonobstructive bowel gas pattern. Gas and stool are seen throughout the colon to the level of the rectum. There is no free air. No abnormal calcifi cations. IMPRESSION: 1. No acute abdominal abnormality. Reviewed, dictated and finalized at location B.
[2022-08-14 10:21] VITALS: BP 170/88; PULSE 86; RESP 16; TEMP 36.7; O2SAT 100
--- NOTE | 2022-08-14 10:27 | ED.NAVMDI ---
HPI - Nausea/Vomiting/Diarrhea General Chief complaint: Nausea/Vomiting/Diarrhea Stated complaint: diarrhea, n/v for 3 days Time Seen by Provider: 08/14/22 10:27 Source: patient Mode of arrival: ambulatory Limitations: no limitations History of Present Illness HPI Narrative: Ms. Cary is a 37-year-old female patient presenting to the clinic today with complaints of nausea, and diarrhea x3 days. She reports she is having 3-4 diarrhea stools per day and having nausea without vomiting. Denies any known fever but has had some chills and body aches. Also reports that she does have a sore throat. History of IBS-mixed, colostomy-reversed, and abdominal hernia Related Data Home Medications Medication Instructions Recorded Confirmed alprazolam 2 mg tablet 1 mg PO TID 09/08/20 08/14/22 norethindrone acetate 1 mg-ethinyl 1 tablet PO DAILY 09/08/20 08/14/22 estradiol 20 mcg tablet gabapentin 100 mg capsule 100 mg PO DAILY 10/31/21 08/14/22 ergocalciferol (vitamin D2) 1,250 1,250 mcg PO DAILY 05/06/22 08/14/22 mcg (50,000 unit) capsule losartan 100 1 tablet PO DAILY 05/06/22 08/14/22 mg-hydrochlorothiazide 25 mg tablet tizanidine 4 mg tablet 4 mg PO DIRECTED 05/06/22 08/14/22 amlodipine 5 mg tablet 5 mg DAILY 07/07/22 08/14/22 doxepin 25 mg capsule 25 mg QPM 07/07/22 08/14/22 fluticasone propionate 50 1 spray intranasal DAILY 08/14/22 08/14/22 mcg/actuation nasal spray,suspension Allergies Allergy/AdvReac Type Severity Reaction Status Date / Time hydrocodone Allergy Mild ITCHING Verified 08/14/22 10:20 ibuprofen AdvReac Mild AFFECTS IBS Verified 08/14/22 10:31 Review of Systems Review of Systems: Pertinent positives per HPI. Patient denies any fever, chills, rash, headache, visual changes, dizziness, cough, runny nose, sore throat, shortness of breath, chest pain, palpitations, nausea, vomiting, diarrhea, constipation, abdominal pain, or any urinary issues. PMF Past Medical History Medical History Abdominal pain Anxiety Chronic constipation Constipation Coughing Depression Dizziness High cholesterol Hypertension IBS (irritable bowel syndrome) LLQ abdominal pain Triangular fibrocartilage complex injury Wears glasses Surgical History Surgical History History of colostomy with reversal History of endoscopy History of hernia repair JAN 2021 [place] History of laparoscopy Family History Family History Grandparent Heart disease Mother Bipolar 1 disorder Polycythemia Father Hypertension DVT (deep venous thrombosis) Other Depression Social History Social History Smoking packs per day: 1 Smoking cigarettes per day: 20.0 Years smoked: 10 Smoking pack-years: 10.00 Smoking status: Current every day smoker Tobacco type: cigarettes Alcohol intake: never Substance use: current Substance use type: marijuana Living arrangements: alone Occupation/Education: unemployed Gender identity (if verbalized by the patient): Female Comments At the time of my signature, I reviewed and agree with the nursing past medical, surgical, social, and family history. There is no relevant family history pertinent to the patient complaint. Exam Narrative: General: Well-developed,overweight, in no apparent distress Head: Normocephalic, atraumatic Eyes: Pupils equally round and reactive to light bilaterally, EOM intact, sclera and conjunctive clear, no discharge, lids normal Ears: TMs intact and clear, ear canals clear, no drainage, grossly hearing normal. Nose: Nares patent, no discharge, no inflammation, no sinus tenderness. Mouth: Oropharynx red without lesions or masses, good dentition, MMM. Neck: Supple, trachea midline, no
== END 2022-08-14 11:42 | disposition home or self-care (01) ==
PROVIDERS: Emergency Provider Nurse Practitioner Family; PCP Family Medicine Adolescent Medicine
DX: K52.9 Noninfective gastroenteritis and colitis, unspecified (principal); F17.210 Nicotine dependence, cigarettes, uncomplicated; F12.90 Cannabis use, unspecified, uncomplicated; E78.00 Pure hypercholesterolemia, unspecified; I10 Essential (primary) hypertension; F41.9 Anxiety disorder, unspecified
CPT/HCPCS: 74019; 81003; 87081; 87804; 87880; 99213; G0463

== ENCOUNTER 2022-10-06 13:00 | Emergency (ER) | payer OTHER, SELFPAY ==
[2022-10-06 13:09] VITALS: BP 118/70; PULSE 80; RESP 16; TEMP 37.4; O2SAT 99
--- NOTE | 2022-10-06 13:17 | ED.NAVMDI ---
HPI - Nausea/Vomiting/Diarrhea General Chief complaint: Nausea/Vomiting/Diarrhea Stated complaint: stomach issues Time Seen by Provider: 10/06/22 13:17 Source: patient Mode of arrival: ambulatory Limitations: no limitations History of Present Illness HPI Narrative: 37-year-old female presents with complaint nausea vomiting, fatigue, abdominal cramping for 4 days. Patient reports that she has been taking Zofran to treat nausea vomiting. Has not vomited today. States she continues to have several episodes of diarrhea her she can barely make it to the bathroom because it is so runny. Patient reports that she has a prescription for Imodium and she is taking 1 dose every 7 hours. States that is with the bottle says . Afebrile. Alert and oriented. Able to keep down fluids. Denies urinary symptoms. Requesting work note. All systems reviewed and negative except as noted above. Related Data Home Medications Medication Instructions Recorded Confirmed gabapentin 100 mg capsule 100 mg PO DAILY 10/31/21 10/06/22 ergocalciferol (vitamin D2) 1,250 1,250 mcg PO DAILY 05/06/22 10/06/22 mcg (50,000 unit) capsule losartan 100 1 tablet PO DAILY 05/06/22 10/06/22 mg-hydrochlorothiazide 25 mg tablet tizanidine 4 mg tablet 4 mg PO DIRECTED 05/06/22 10/06/22 vitamin [id number] B1 1,000 See Rx Instructions .Route .COMPLEX 08/19/22 10/06/22 mcg-100 mg/mL injection solution albuterol sulfate 90 mcg/actuation 2 puff inhalation Q4-5H PRN sob 10/06/22 10/06/22 aerosol inhaler amlodipine 5 mg tablet 5 mg PO DAILY 10/06/22 10/06/22 fluticasone propionate 50 1 spray intranasal DAILY 10/06/22 10/06/22 mcg/actuation nasal spray,suspension norethindrone acetate 1 mg-ethinyl 1 tablet PO DAILY 10/06/22 10/06/22 estradiol 20 mcg tablet Allergies Allergy/AdvReac Type Severity Reaction Status Date / Time hydrocodone Allergy Mild ITCHING Verified 10/06/22 13:07 ibuprofen AdvReac Mild AFFECTS IBS Verified 10/06/22 13:07 Review of Systems Review of Systems: CONSTITUTIONAL: Denies fever, chills, or sweats. reports fatigue. EYES: Denies visual changes, redness, or discharge. ENT: Denies rhinorrhea, congestion, sore throat, or otalgia. CARDIOVASCULAR: Denies chest pain, palpitations, or edema. RESPIRATORY: Denies cough or dyspnea. GASTROINTESTINAL: Reports abdominal pain, nausea, vomiting, or diarrhea. GENITOURINARY: Denies dysuria or hematuria. SKIN: Denies rash or itching. MUSCULOSKELETAL: Denies back pain, joint pain, or myalgia. NEUROLOGIC: Denies headache, numbness, or weakness. PSYCHIATRIC: Denies anxiety or depression. All other systems reviewed are negative, except as documented in HPI. [facility] Past Medical History Medical History (Updated 10/06/22 @ 13:25 by Sydnie Meyers NP) Abdominal pain Anxiety Chronic constipation Constipation Coughing Depression Dizziness High cholesterol Hypertension IBS (irritable bowel syndrome) LLQ abdominal pain Triangular fibrocartilage complex injury Wears glasses Surgical History Surgical History (Updated 08/19/22 @ 14:26 by Sami Menjivar MD) History of colostomy (2014) due to trauma, with reversal History of endoscopy History of hernia repair JAN 2021 [place] History of laparoscopy History of nasal septoplasty Family History Family History Grandparent Heart disease Mother Bipolar 1 disorder Polycythemia Father Hypertension DVT (deep venous thrombosis) Other Depression Social History Social History Smoking packs per day: 1 Smoking cigarettes per day: 20.0 Years smoked: 10 Smoking pack-years: 10.00 Smoking status: Current every day smoker Tobacco type: cigarettes Alcohol intake: never Substance use: current Substance use type: marijuana Living arrangements: alone Occupation/Education: une
== END 2022-10-06 13:27 | disposition home or self-care (01) ==
PROVIDERS: Emergency Provider Nurse Practitioner Family; PCP Family Medicine Adolescent Medicine
DX: A08.4 Viral intestinal infection, unspecified (principal); F17.210 Nicotine dependence, cigarettes, uncomplicated; F12.90 Cannabis use, unspecified, uncomplicated; E78.00 Pure hypercholesterolemia, unspecified; I10 Essential (primary) hypertension; F41.9 Anxiety disorder, unspecified; F32.A Depression, unspecified
CPT/HCPCS: 99213; G0463

== ENCOUNTER 2022-10-26 14:05 | Emergency (ER) | payer OTHER, SELFPAY ==
[2022-10-26 14:27] VITALS: BP 163/89; PULSE 90; RESP 18; TEMP 36.8; O2SAT 100
[2022-10-26 14:30] VITALS: BP 163/89; PULSE 90; RESP 18; TEMP 36.8; O2SAT 100
--- NOTE | 2022-10-26 14:47 | ED.URI ---
HPI - URI/Sore Throat General Chief Complaint: Upper Respiratory Infection Stated Complaint: Sore Throat Time Seen by Provider: 10/26/22 14:47 Source: patient Mode of arrival: ambulatory Limitations: no limitations History of Present Illness HPI Narrative: 37-year-old female presents with complaint of nasal congestion, sinus pressure, sore throat, postnasal drainage, cough starting yesterday. No chest pain or shortness of breath. Taking [id number] Flonase, Claritin and Coricidin her healthy. Afebrile. Patient concerned she has sinus infection. All systems reviewed and negative except as noted above. Related Data Home Medications Medication Instructions Recorded Confirmed ergocalciferol (vitamin D2) 1,250 1,250 mcg PO DAILY 05/06/22 10/06/22 mcg (50,000 unit) capsule losartan 100 1 tablet PO DAILY 05/06/22 10/06/22 mg-hydrochlorothiazide 25 mg tablet tizanidine 4 mg tablet 4 mg PO DIRECTED 05/06/22 10/06/22 albuterol sulfate 90 mcg/actuation 2 puff inhalation Q4-5H PRN sob 10/06/22 10/06/22 aerosol inhaler amlodipine 5 mg tablet 5 mg PO DAILY 10/06/22 10/06/22 fluticasone propionate 50 1 spray intranasal DAILY 10/06/22 10/06/22 mcg/actuation nasal spray,suspension norethindrone acetate 1 mg-ethinyl 1 tablet PO DAILY 10/06/22 10/06/22 estradiol 20 mcg tablet Allergies Allergy/AdvReac Type Severity Reaction Status Date / Time hydrocodone Allergy Mild ITCHING Verified 10/26/22 14:29 ibuprofen AdvReac Mild AFFECTS IBS Verified 10/26/22 14:29 Review of Systems Review of Systems: CONSTITUTIONAL: Denies fever, chills, or sweats. EYES: Denies visual changes, redness, or discharge. ENT: Reports rhinorrhea, congestion, sore throat, sinus pressure. Denies otalgia. CARDIOVASCULAR: Denies chest pain, palpitations, or edema. RESPIRATORY: reports cough. Denies dyspnea. GASTROINTESTINAL: Denies abdominal pain, nausea, vomiting, or diarrhea. GENITOURINARY: Denies dysuria or hematuria. SKIN: Denies rash or itching. MUSCULOSKELETAL: Denies back pain, joint pain, or myalgia. NEUROLOGIC: Denies headache, numbness, or weakness. PSYCHIATRIC: Denies anxiety or depression. All other systems reviewed are negative, except as documented in HPI. [facility] Past Medical History Medical History (Updated 10/26/22 @ 14:52 by Sydnie Meyers NP) Abdominal pain Anxiety Chronic constipation Constipation Coughing Depression Dizziness High cholesterol Hypertension IBS (irritable bowel syndrome) LLQ abdominal pain Triangular fibrocartilage complex injury Wears glasses Surgical History Surgical History (Updated 08/19/22 @ 14:26 by Sami Menjivar MD) History of colostomy (2014) due to trauma, with reversal History of endoscopy History of hernia repair JAN 2021 [place] History of laparoscopy History of nasal septoplasty Family History Family History Grandparent Heart disease Mother Bipolar 1 disorder Polycythemia Father Hypertension DVT (deep venous thrombosis) Other Depression Social History Social History Smoking packs per day: 1 Smoking cigarettes per day: 20.0 Years smoked: 10 Smoking pack-years: 10.00 Smoking status: Current every day smoker Tobacco type: cigarettes Alcohol intake: never Substance use: current Substance use type: marijuana Living arrangements: alone Occupation/Education: unemployed Gender identity (if verbalized by the patient): Female Exam Narrative: GENERAL: This is a well-nourished, well-developed patient, in no apparent distress. HEAD: normocephalic, atraumatic. EYES: PERRL. Sclera clear/white. Vision is grossly intact. EARS: External ears normal, auditory canals clear and without drainage, TMs normal without perforation. Hearing grossly intact. NOSE: External nose normal with clear na
== END 2022-10-26 14:58 | disposition home or self-care (01) ==
PROVIDERS: Emergency Provider Nurse Practitioner Family; PCP Family Medicine Adolescent Medicine
DX: J01.90 Acute sinusitis, unspecified (principal); F17.210 Nicotine dependence, cigarettes, uncomplicated; F12.90 Cannabis use, unspecified, uncomplicated; E78.00 Pure hypercholesterolemia, unspecified
CPT/HCPCS: 99213; G0463

== ENCOUNTER 2023-02-21 10:43 | Emergency (ER) | payer OTHER, SELFPAY ==
[2023-02-21 10:53] VITALS: BP 168/90; PULSE 84; RESP 16; TEMP 37.6; O2SAT 98
--- NOTE | 2023-02-21 11:07 | ED.URI ---
HPI - URI/Sore Throat General Chief Complaint: Upper Respiratory Infection Stated Complaint: sinus infection ,cough Time Seen by Provider: 02/21/23 11:08 Source: patient, RN notes reviewed and old records reviewed Mode of arrival: ambulatory Limitations: no limitations History of Present Illness HPI Narrative: 37-year-old female presents to the [facility] with complaints of sinus congestion for 2 days. Has been taking Coricidin and using her Flonase. Denies fevers. States that her sister has similar symptoms. Patient declines COVID and flu testing at this time. Related Data Home Medications Medication Instructions Recorded Confirmed ergocalciferol (vitamin D2) 1,250 1,250 mcg PO DAILY 05/06/22 01/28/23 mcg (50,000 unit) capsule losartan 100 1 tablet PO DAILY 05/06/22 01/28/23 mg-hydrochlorothiazide 25 mg tablet tizanidine 4 mg tablet 4 mg PO DIRECTED 05/06/22 01/28/23 albuterol sulfate 90 mcg/actuation 2 puff inhalation Q4-5H PRN sob 10/06/22 01/28/23 aerosol inhaler norethindrone acetate 1 mg-ethinyl 1 tablet PO DAILY 10/06/22 01/28/23 estradiol 20 mcg tablet Allergies Allergy/AdvReac Type Severity Reaction Status Date / Time hydrocodone Allergy Mild ITCHING Verified 02/21/23 11:01 ibuprofen AdvReac Mild AFFECTS IBS Verified 02/21/23 10:49 acetaminophen [From Tylenol] AdvReac Other Verified 02/21/23 11:00 Review of Systems Review of Systems: All systems reviewed & are unremarkable except as noted in HPI and below Constitutional: Constitutional: Reports no additional constitutional complaints Eyes: Eyes: Reports no additional eye complaints ENT: Reports as per HPI, Reports nasal congestion and Reports sinus pressure Cardiovascular: Cardiovascular: Reports no additional cardiovascular complaints, Denies chest pain and Denies dyspnea Respiratory: Respiratory: Reports as per HPI, Denies chest congestion, Reports cough and Denies dyspnea Gastrointestinal: Gastrointestinal: Reports no additional gastrointestinal complaints, Denies abdominal pain, Denies nausea and Denies vomiting Musculoskeletal: Musculoskeletal: Reports no additional musculoskeletal complaints Integumentary/Breasts: Skin/Breast: Reports system reviewed and no additional complaints, except as docu Neurologic: Reports system reviewed and no additional complaints, except as documented Psychiatric: Psychiatric: Reports no additional psychiatric complaints Allergic/Immunologic: Allergic/Immunologic: Reports no additional allergic/immunologic complaints [facility] Past Medical History Medical History Abdominal pain Anxiety Chronic constipation Constipation Coughing Depression Dizziness High cholesterol Hypertension IBS (irritable bowel syndrome) LLQ abdominal pain Triangular fibrocartilage complex injury Wears glasses Surgical History Surgical History History of colostomy (2014) due to trauma, with reversal History of endoscopy History of hernia repair JAN 2021 [place] History of laparoscopy History of nasal septoplasty Family History Family History Grandparent Heart disease Mother Bipolar 1 disorder Polycythemia Father Hypertension DVT (deep venous thrombosis) Other Depression Social History Social History Smoking packs per day: 1 Smoking cigarettes per day: 20.0 Years smoked: 10 Smoking pack-years: 10.00 Smoking status: Current every day smoker Tobacco type: cigarettes Alcohol intake: never Substance use: current Substance use type: marijuana Living arrangements: alone Occupation/Education: unemployed Gender identity (if verbalized by the patient): Female Comments At the time of my signature, I reviewed and agree with the nursing past medical, surgical, soci
== END 2023-02-21 11:32 | disposition home or self-care (01) ==
PROVIDERS: Emergency Provider Nurse Practitioner; PCP Family Medicine Adolescent Medicine
DX: J06.9 Acute upper respiratory infection, unspecified (principal); J01.40 Acute pansinusitis, unspecified; F17.210 Nicotine dependence, cigarettes, uncomplicated; F12.90 Cannabis use, unspecified, uncomplicated; E78.00 Pure hypercholesterolemia, unspecified; I10 Essential (primary) hypertension
CPT/HCPCS: 99213; G0463

== ENCOUNTER 2023-09-17 13:14 | Outpatient (CLI) | payer OTHER, SELFPAY ==
--- NOTE | ~2023-09-17 | CT_ITS ---
EXAMINATION: CT sinus wo con DATE: 09/17/2023 13:28 INDICATION: Chronic sinusitis TECHNIQUE: Computed tomography (CT) of the paranasal sinuses was performed without intravenous contra st. The dose-length product was 318.31 mGy-cm. Automated exposure control and iterative reconstructio n technique were employed. COMPARISON: CT dated 04/11/2021 FINDINGS: Persistent minimal mucosal thickening left ethmoid air cells anteriorly. No air-fluid level s. No mucoperiosteal reaction. Mastoids are pneumatized on the right. Small left mastoid effusion. Sm all left-sided patience bullosa. Ostiomeatal units are patent. Mild bowing of the nasal septum to the r ight. IMPRESSION: 1. Minimal ethmoid sinus disease. Reviewed, dictated and finalized at location B.
== END 2023-09-17 13:15 | disposition home or self-care (01) ==
PROVIDERS: PCP Family Medicine Adolescent Medicine; Visit Provider Nurse Practitioner Family
DX: J32.9 Chronic sinusitis, unspecified (principal)
CPT/HCPCS: 70486

== ENCOUNTER 2023-12-08 15:37 | Observation (INO) | payer OTHER, SELFPAY ==
[2023-12-08] VITALS (13 sets, daily range): BP systolic 70–139; BP diastolic 40–75; PULSE 63–75; RESP 18–22; TEMP 36.2–36.8; O2SAT 94–100; BMI 38.7
--- NOTE | ~2023-12-08 | XR_ITS ---
EXAMINATION: XR chest 1V portable DATE: 12/08/2023 16:41 INDICATION: Infection. Dizziness. TECHNIQUE: frontal view of the chest was obtained. COMPARISON: Chest radiograph dated 03/17/2014 FINDINGS: The lungs are clear with no focal airspace opacities, pulmonary edema, pleural effusion or pneumothor ax. Heart size is normal. A prominent left paracardial fat pad. Visualized bones and soft tissues are unremarkable. IMPRESSION: 1. No acute cardiopulmonary disease. Reviewed, dictated and finalized at location A.
--- NOTE | ~2023-12-08 | US_ITS ---
Renal-Bladder ultrasound Clinical History: Acute kidney injury Technique: Real-time sonographic imaging of the kidneys and urinary bladder was performed. Findings: The right kidney measures 10.3 cm in length and the left kidney measures 11.0 cm. There is no hydronephrosis or renal calculus identified. Renal cortical echogenicity is within normal limits. No renal mass lesion is identified. The urinary bladder is moderately distended at the time of this exam. No intraluminal echoes are iden tified. No abnormal wall thickening is seen. Impression: Unremarkable ultrasound of the kidneys and urinary bladder. Reviewed, dictated and finalized at location . Impression: Unremarkable ultrasound of the kidneys and urinary bladder.
--- NOTE | 2023-12-08 16:28 | ED.DIZZY ---
HPI - Dizziness General Chief Complaint: Syncope Stated Complaint: syncope Time Seen by Provider: 12/08/23 15:48 History of Present Illness HPI Narrative: Patient is a 38-year-old female who presents to the emergency department this afternoon via EMS from home due to a syncopal episode. Family called 911 as patient was unresponsive, upon arrival, patient was noted to be hypotensive. Upon arrival to our emergency department, family members present at bedside states the patient has been trying to wean herself off of her Xanax as she is running out and secondary to his she has not been sleeping or eating for the past 3 days. Patient admits that she has been going through a lot of stress including not being able to find a job. EMS administered 500 cc of normal saline. Patient is alert and oriented to person, place, time and situation and is answering all my questions appropriately. Family members deny any fall or head trauma. Related Data Home Medications Medication Instructions Recorded Confirmed albuterol sulfate 90 mcg/actuation 2 puff inhalation Q4-5H PRN sob 10/06/22 11/17/23 aerosol inhaler insulin syringe-needle U-100 1 mL #100 ea 11/03/23 11/17/23 25 x 1 Allergies Allergy/AdvReac Type Severity Reaction Status Date / Time hydrocodone Allergy Mild ITCHING Verified 11/17/23 15:03 bupropion AdvReac Intermediate Agitated Verified 11/17/23 15:03 ibuprofen AdvReac Mild AFFECTS IBS Verified 11/17/23 15:03 acetaminophen [From Tylenol] AdvReac Other Verified 11/17/23 15:03 doxycycline AdvReac Intermediate Vomiting Uncoded 11/17/23 15:03 Review of Systems Review of Systems: All systems are reviewed and are negative unless stated otherwise in the HPI. [facility] Past Medical History Medical History Abdominal pain Anxiety Chronic constipation Constipation Coughing Depression Dizziness High cholesterol Hypertension IBS (irritable bowel syndrome) LLQ abdominal pain Triangular fibrocartilage complex injury Wears glasses Surgical History Surgical History History of colostomy (2014) due to trauma, with reversal History of endoscopy History of hernia repair JAN [address] [place] History of laparoscopy History of nasal septoplasty Family History Family History Grandparent Heart disease Mother Bipolar 1 disorder Polycythemia Father Hypertension DVT (deep venous thrombosis) Other Depression Social History Social History Smoking packs per day: 1 Smoking cigarettes per day: 20.0 Years smoked: 10 Smoking pack-years: 10.00 Smoking status: Current every day smoker Tobacco type: cigarettes Alcohol intake: current Drinks per week: 14 Substance use: current Substance use type: marijuana Do You Feel Safe in your Home?: Yes Lack of Transportation: No Lack of Food: Never True Current Housing: Decline to Answer Concerned About Future Housing: No Difficulty Paying Gas/Electric Bills: No Difficulty Paying for Meds: No Currently Unemployed: YES Education: Trade/Vocational Certificate Difficulty w/ Childcare or Family Care: No Living arrangements: alone Occupation/Education: unemployed Gender identity (if verbalized by the patient): Female Exam Narrative: General: Alert, awake, afebrile, in no acute distress. HEENT: PERRL, no rhinorrhea, no post nasal drip, oropharynx clear. Cardiovascular: Regular rate and rhythm, no murmurs, rubs or gallops, no peripheral edema. Respiratory: Clear to auscultation bilaterally, no tachypnea, no wheezing, no rhonchi, no rubs, no respiratory distress. Abdomen: Soft, nontender, nondistended, no rebound, no guarding, no peritoneal signs. Musculoskeletal: No joint swelling or deformity, normal muscle tone. Skin:
[2023-12-08 16:31] LABS: Basophils Absolute Auto 0.1 K/mm3 (0.0-0.1); Basophils Percent Auto 0.3 % (0.2-1.2); Eosinophils Absolute Auto 0.1 K/mm3 (0-0.3); Eosinophils Percent Auto 0.4 % (0-4.4); Hematocrit 37.2 % (37.0-47.0); Hemoglobin 12.7 g/dL (12.0-15.0); Immature Granulocyte Absolute 0.18 K/mm3 (0.00-0.031); Immature Granulocyte Percent A 1.1 % (0-0.5); Lymphocytes Absolute Auto 3.71 K/mm3 (0.9-3.2); Lymphocytes Percent Auto 22.3 % (18.3-44.2); Mean Corpuscular HGB Conc 34.1 g/dl (32-36); Mean Corpuscular Hemoglobin 37.7 pg (26-34); Mean Corpuscular Volume 110.4 fl (80-100); Mean Platelet Volume 9.8 fl (7.4-10.4); Monocytes Absolute Auto 1.1 K/mm3 (0.1-0.6); Monocytes Percent Auto 6.3 % (2.6-8.5); Neutrophils Absolute Auto 11.6 K/mm3 (1.3-6.7); Neutrophils Percent Auto 69.6 % (45.5-73.1); Platelet Count Result 355 k/mm3 (150-375); Red Blood Count 3.37 M/mm3 (4.2-5.4); Red Cell Distribution Width 13.3 % (11.5-14.5); White Blood Count 16.6 K/mm3 (4.5-10.0)
[2023-12-08 16:41] LABS: Lactic Acid Reflex 3.4 mmol/L (0.7-2.0)
[2023-12-08 16:46] LABS: Alanine Aminotransferase 45 U/L (6-35); Albumin Level 3.8 g/dL (3.5-5.1); Alkaline Phosphatase 68 U/L (38-126); Anion Gap 13 mmol/L (4-12); Aspartate Amino Transferase 88 U/L (14-36); Bilirubin,Total 0.6 mg/dL (0.2-1.3); Blood Urea Nitrogen 16 mg/dL (7-17); Calcium 8.9 mg/dL (8.4-10.2); Carbon Dioxide 23 mmol/L (22-30); Chloride 94 mmol/L (98-107); Estimated CRCL calculation 29 ml/min; Estimated Glomerular Filt Rate 18; Glucose 139 mg/dL (65-110); Magnesium 1.8 mg/dL (1.6-2.3); Potassium 2.7 mmol/L (3.4-5.0); Sodium 130 mmol/L (137-145)
[2023-12-08 17:07] LABS: SPREG INTERNAL CONTROL Positive; Serum Qual hCG Negative
--- NOTE | 2023-12-08 17:07 | ECG_ITS ---
Test Date: 2023-12-08 17:39:41 Measurements Intervals Mabel Rate: 68 P: 41 OR: 130 QRS: 5 QRSD: 81 T: -16 QT: 493 QTc: 528 Interpretive Statements SINUS RHYTHM LEFT ATRIAL ENLARGEMENT DELAYED PRECORDIAL R/S TRANSITION ST-T WAVE ABNORMALITY IN INFERIOR LEADS- CONSIDER ISCHEMIA BASELINE ARTIFACT- I, II, III, AVR, AVL, AVF, V1-V6 ABNORMAL ECG No previous ECG available for comparison Electronically Signed On 12-08-2023 17:44:02 CDT by Parth Kingston D.O.
[2023-12-08] MEDS: POTASSIUM CHLORIDE 20 MEQ PACKET (FOR LIQUID) 40 MEQ PO (17:15)
[2023-12-08] MEDS: POTASSIUM CHLORIDE 20 MEQ ER TABLET 40 MEQ PO (17:15)
[2023-12-08] MEDS: SODIUM CHLORIDE 0.9% IV 1,000 ML 999 ML IV CONT (17:16)
[2023-12-08] MEDS: SODIUM CHLORIDE 0.9% IV 1,000 ML 100 ML IV CONT (18:40)
--- NOTE | 2023-12-08 19:15 | ADMGEN ---
This patient, Gina Cary, was admitted to 3 [facility] Surg Room 301-01. Patient/family oriented to hospital policies and general routines including ID bracelet, bed and alarms, visiting hours, pain management, procedures, bathroom and other care routines, personal items, smoking policy, room service/diet, and visiting hours. Information on how to activate the Rapid Response Team has been discussed. Patient/Family are encouraged to report perceived risks to care and to ask questions if they do not understand what they are told or what they should do.
[2023-12-08 19:28] LABS: Reflex Lactic Acid Yes or No Add Lactic
--- NOTE | 2023-12-08 19:55 | PM.IMHP ---
H&P: HPI History of Present Illness Date/Time: 12/08/23 19:55 Chief Complaint: Syncope. Narrative: This is a 38-year-old female smoker with history of alcohol abuse, depression, anxiety, bipolar disorder, hypertension, hyperlipidemia, and irritable bowel syndrome who presented to the emergency department via EMS from home for evaluation after syncopal episode. The patient and the family members at bedside provides the following history. She has a lot of personal stressors recently and when she is stressed out she does not sleep well or have much of an appetite. She has been increasingly anxious but is running out of her alprazolam so she has been taking lower doses the last couple of days. She also mentions that she has been cutting back on her alcohol intake, now drinking perhaps 2 alcoholic beverages a night instead of 4. The last few days she has been feeling lightheaded and dizzy and today she had a witnessed syncopal episode where she fell back onto the floor. Family members did not think they felt a pulse and called 911. On EMS arrival her blood pressure was in the 80s systolic and she was minimally responsive with a reportedly absent radial pulse. She was given a 500 mL fluid bolus and she has been more responsive and blood pressures improved. There were no reports of seizure activity, tongue bite, or incontinence. She denies chest pain, pleuritic pain, shortness of breath, sweats, cold and flu symptoms, vomiting, diarrhea, dysuria, edema, and calf pain. She feels a bit anxious per her baseline but has no signs or symptoms of alcohol withdrawal peer In the ED: Blood pressure was 70/40. She was given a 2 L normal saline bolus with improvement in her blood pressures to the low 100 systolic. She has been afebrile since arrival. Labs were significant for WBC count 16.6, hemoglobin 12.7, MCV 110.4, platelet 355, sodium 130, potassium 2.7, chloride 94, anion gap 13, BUN 16, creatinine 2.90, lactic acid 3.4, magnesium 1.8, total bilirubin 0.6, AST 88, ALT 45, alkaline phosphatase 68. Chest x-ray showed no acute cardiopulmonary disease. In addition to IV fluids, she was given 80 mEq potassium chloride and she is being admitted in this setting for further treatment and evaluation. Review of Systems Review of Systems: 12 systems were reviewed and are negative except for as per HPI. [facility] Past Medical History Medical History (Updated 12/08/23 @ 22:50 by Erika Kessler PA-C) Alcohol abuse Anxiety Bipolar disorder Chronic constipation Depression Fatty liver Hyperlipidemia Hypertension Irritable bowel syndrome Tobacco dependence Surgical History Surgical History (Updated 12/08/23 @ 19:57 by Erika Kessler PA-C) History of colostomy (2014) due to trauma, with reversal History of endoscopy History of hernia repair (01/2021) History of laparoscopy History of nasal septoplasty Family History Family History Grandparent Heart disease Mother Bipolar 1 disorder Polycythemia Father Hypertension DVT (deep venous thrombosis) Other Depression Social History Social History (Updated 12/08/23 @ 22:49 by Erika Kessler PA-C) Social History: Surrogate medical decision maker: Eli Cary, mother. Code status: Full code. Smoking packs per day: 1 Smoking cigarettes per day: 20.0 Years smoked: 23 Smoking pack-years: 23.00 Smoking status: Current every day smoker Tobacco type: cigarettes Smokeless tobacco user: other Alcohol intake: current Drinks per week: 14 Substance use: current Substance use type: marijuana Last use: 12/08/23 Do You Feel Safe in your Home?: Yes Lack of Transportation: No Lack of Food: Never True Current Housing: I Have Housing Concerned About Future Housing: No Difficulty Paying Gas/Electric Bills: No Difficulty Paying for Meds: No Currently Unemployed: YES Education: High School Diploma/GED
[2023-12-08 20:30] LABS: Anion Gap 12 mmol/L (4-12); Blood Urea Nitrogen 18 mg/dL (7-17); Calcium 8.4 mg/dL (8.4-10.2); Carbon Dioxide 25 mmol/L (22-30); Chloride 95 mmol/L (98-107); Creatine Kinase 52 U/L (30-135); Estimated CRCL calculation 33 ml/min; Estimated Glomerular Filt Rate 21; Glucose 125 mg/dL (65-110); Magnesium 1.9 mg/dL (1.6-2.3); Potassium 3.7 mmol/L (3.4-5.0); Sodium 132 mmol/L (137-145)
[2023-12-08] MEDS: ALPRAZolam (*CRX) 0.5 MG TABLET 1 MG PO (21:34)
[2023-12-08] MEDS: traZODone HCL 50 MG TABLET 100 MG PO (21:35)
[2023-12-09] VITALS (9 sets, daily range): BP systolic 153–175; BP diastolic 79–86; PULSE 68–103; RESP 18; TEMP 35.7–36.6; O2SAT 100
[2023-12-09 05:35] LABS: Bacteria Urine None Seen /hpf; RBC Urine 0-2 /hpf (0-2); Squamous Epithelial Cell Urine Few /hpf (Few)
[2023-12-09 05:36] LABS: Appearance Urine Clear (Clear); Color Urine Yellow (Yellow)
[2023-12-09 05:37] LABS: Blood Urine Negative (Negative); Glucose Urine UA Negative (Negative); Ketones Urine Negative (Negative); Nitrate Urine Negative (Negative); Protein Urine Trace mg/dL (Negative)
[2023-12-09 05:38] LABS: Add Urine Microscopic? YES; Bilirubin Urine Negative (Negative); Leukocyte Esterase Ur Trace LEU/UL (Negative); Urobilinogen Urine 0.2 mg/dL (<2.0)
[2023-12-09] MEDS: ONDANSETRON INJ 4 MG/2 ML VIAL IV PUSH (06:57)
[2023-12-09 07:35] LABS: Basophils Absolute Auto 0.1 K/mm3 (0.0-0.1); Basophils Percent Auto 0.4 % (0.2-1.2); Eosinophils Absolute Auto 0.1 K/mm3 (0-0.3); Eosinophils Percent Auto 0.3 % (0-4.4); Hematocrit 42.3 % (37.0-47.0); Hemoglobin 13.9 g/dL (12.0-15.0); Immature Granulocyte Absolute 0.09 K/mm3 (0.00-0.031); Immature Granulocyte Percent A 0.5 % (0-0.5); Lymphocytes Absolute Auto 3.08 K/mm3 (0.9-3.2); Lymphocytes Percent Auto 18.4 % (18.3-44.2); Mean Corpuscular HGB Conc 32.9 g/dl (32-36); Mean Corpuscular Volume 112.5 fl (80-100); Monocytes Absolute Auto 0.8 K/mm3 (0.1-0.6); Monocytes Percent Auto 4.9 % (2.6-8.5); Neutrophils Absolute Auto 12.7 K/mm3 (1.3-6.7); Neutrophils Percent Auto 75.5 % (45.5-73.1); Platelet Count Result 369 k/mm3 (150-375); Red Blood Count 3.76 M/mm3 (4.2-5.4); White Blood Count 16.8 K/mm3 (4.5-10.0)
[2023-12-09 07:45] LABS: Partial Thromboplastin Time 21.9 Seconds (22.3-36.8)
[2023-12-09 07:50] LABS: Alanine Aminotransferase 53 U/L (6-35); Albumin Level 4.4 g/dL (3.5-5.1); Alkaline Phosphatase 82 U/L (38-126); Anion Gap 15 mmol/L (4-12); Aspartate Amino Transferase 80 U/L (14-36); Bilirubin,Total 0.9 mg/dL (0.2-1.3); Blood Urea Nitrogen 18 mg/dL (7-17); Calcium 8.7 mg/dL (8.4-10.2); Carbon Dioxide 20 mmol/L (22-30); Chloride 99 mmol/L (98-107); Estimated CRCL calculation 56 ml/min; Estimated Glomerular Filt Rate 39; Glucose 121 mg/dL (65-110); Lipase 36 U/L (23-300); Magnesium 2.1 mg/dL (1.6-2.3); Potassium 3.4 mmol/L (3.4-5.0); Sodium 134 mmol/L (137-145)
[2023-12-09] MEDS: FLUTICASONE PROPIONATE 0.05% NA SPR 16 GM BTL (*BKC) 1 SPRAY NASAL (08:02)
[2023-12-09] MEDS: ALPRAZolam (*CRX) 0.5 MG TABLET 1 MG PO ×2 (08:02→12:01)
[2023-12-09] MEDS: THIAMINE HCL 100 MG TABLET PO (08:02)
[2023-12-09] MEDS: DULoxetine HCL 60 MG CAPSULE.DR PO (08:03)
[2023-12-09] MEDS: FOLIC ACID 1 MG TABLET PO (08:03)
[2023-12-09] MEDS: amLODIPine BESYLATE 10 MG TABLET PO (09:25)
[2023-12-09] MEDS: LOSARTAN POTASSIUM 100 MG TABLET PO (09:25)
[2023-12-09 11:27] LABS: Hepatitis B Surface Antigen Negative (Negative)
[2023-12-09 11:43] LABS: Hepatitis C Virus Antibody Negative (Negative)
--- NOTE | 2023-12-09 11:48 | PM.DS ---
DS: Admitting Diagnosis Discharge Date 12/09/2023 Admitting Diagnosis Syncope DS: Discharge Diagnosis Discharge Diagnosis (1) Syncope: Code(s): R55 - Syncope and collapse Status: Acute Assessment and Plan: - Likely secondary to dehydration. - Reports not eating or drinking much for the past 4 days. - Symptoms currently resolved and kidney function almost normalized from ARAC[facility]I. - Encouraged with fluids hydration at home. (2) Acute kidney injury: Code(s): N17.9 - Acute kidney failure, unspecified Status: Acute Assessment and Plan: - Likely related to volume depletion from poor PO intake. - Much improved and almost resolved with IVF hydration. - Encouraged with increased PO fluids at home. (3) Hypotension: Code(s): I95.9 - Hypotension, unspecified Status: Acute Assessment and Plan: - Likely secondary to volume depletion from poor PO intake. - Resolved with IVF hydration and BP currently elevated. (4) Hypokalemia: Code(s): E87.6 - Hypokalemia Status: Acute Assessment and Plan: - Likely from poor PO intake. - Replaced and resolved before discharge. (5) Elevated lactic acid level: Code(s): R79.89 - Other specified abnormal findings of blood chemistry Status: Acute Assessment and Plan: - Likely related to dehydration and alcohol use. - Resolved with IVF hydration. (6) Elevated LFTs: Code(s): R79.89 - Other specified abnormal findings of blood chemistry Status: Acute Assessment and Plan: - Likely related to alcohol abuse. - Follow-up with PCP for repeat labs. (7) Alcohol abuse: Code(s): F10.10 - Alcohol abuse, uncomplicated Status: Acute Assessment and Plan: - No signs of withdrawals noted inpatient. - Encouraged with cessation. (8) Tobacco dependence: Code(s): F17.200 - Nicotine dependence, unspecified, uncomplicated Status: Acute Assessment and Plan: - States she's been cutting down. - Encouraged with cessation. (9) Fatty liver: Code(s): K76.0 - Fatty (change of) liver, not elsewhere classified Status: Acute Assessment and Plan: - Likely related to alcohol abuse. - Further mgt outpatient with PCP. Plan Patient stable for discharge and wants to go home. DS: Summary Hospital Course Reason for hospitalization: Syncope episode Hospital Course: Patient presented to the ER after a syncope episode at home. Patient admits to daily alcohol use, beers and vodka, but states she's been cutting down. She also admits to not eating or drinking much within the last 4 days. On EMS arrival at her house, patient's blood pressure was in the 80s systolic and she was minimally responsive with a reportedly absent radial pulse. She was given a 500 mL fluid bolus and she has been more responsive and blood pressures improved. Patient's symptoms were likely attributed to dehydration from poor oral intake and diuretics use. She has been hydrated with IVF and her dehydration has much improved, with her renal function almost resolved. Patient has no symptoms and has been able to ambulate without any symptoms. Patient's orthostatic vitals are fairly within normal limits, and she's medically stable to be discharged home on self care. Patient denies any distress and states she feels good to go home. Status at Discharge Functional status at discharge: independent ambulation Overall status at discharge: patient is back to baseline Time Spent with Patient Time attestation: Total time spent providing and/or coordinating discharge services: Time spent: Greater than 30 minutes Exam Narrative: General: Well-developed female, in no acute distress. HEENT: PERRL, EOMI. Sclera anicteric. Neck: Supple. Respiratory: Lungs are clear to auscultation bilaterally. Cardiovascular: Regular rate and rhythm with S1-S2. Gastrointestinal: Abdomen is soft, obese, nontender, and +ve bowel
[2023-12-09 11:49] LABS: HAV RESULT Negative (Negative)
[2023-12-09 13:22] LABS: Hepatitis B Core IgM Result Negative (Negative)
== END 2023-12-09 12:46 | disposition home or self-care (01) ==
LOC: ANHED 17:11 → ANH3MEDSUR 19:41
PROVIDERS: Physician Assistant; Admitting Provider Hospitalist; Emergency Provider Emergency Medicine; PCP Family Medicine Adolescent Medicine; Visit Provider Internal Medicine
DX: N17.9 Acute kidney failure, unspecified (principal); E86.0 Dehydration; E87.6 Hypokalemia; R74.01 Elevation of levels of liver transaminase levels; R55 Syncope and collapse; I95.9 Hypotension, unspecified; R79.89 Other specified abnormal findings of blood chemistry; F10.10 Alcohol abuse, uncomplicated; K76.0 Fatty (change of) liver, not elsewhere classified; I10 Essential (primary) hypertension; E78.00 Pure hypercholesterolemia, unspecified; K59.09 Other constipation; F41.9 Anxiety disorder, unspecified; F31.9 Bipolar disorder, unspecified; Z79.51 Long term (current) use of inhaled steroids; F17.210 Nicotine dependence, cigarettes, uncomplicated; F12.90 Cannabis use, unspecified, uncomplicated; Z79.899 Other long term (current) drug therapy
CPT/HCPCS: 36415; 71045; 76775; 80048; 80053; 80074; 81001; 82550; 82607; 83605; 83690; 83735; 84443; 84703; 85025; 85610; 85730; 87040; 87086; 87088; 93005; 96360; 96374; 99285; A9270; G0378; G0379; J2405; J7030

== ENCOUNTER 2024-01-28 13:13 | Outpatient (CLI) | payer OTHER, SELFPAY ==
--- NOTE | ~2024-01-28 | CT_ITS ---
CLINICAL INDICATION: Left lower quadrant pain. COMPARISON: 09/07/2021. TECHNIQUE: An enhanced CT of the abdomen and pelvis was performed utilizing multislice spiral [employer] ue reconstructed at 2.5 mm slice thickness. Coronal and sagittal reconstructions were performed. Th is CT examination was performed utilizing dose reduction techniques. DLP: 1346 mGy-cm FINDINGS/OBSERVATIONS: Visualized lower thorax:The bilateral lung bases are clear. The heart is of normal size, without pericardial effusion. Liver: Redemonstration of significant fatty infiltration of the liver. The liver has increased in size since previous examination, measuring 20 cm in longitudinal dimension on 09/07/2021 and increasing to 24 cm in longitudinal dimension on today's examination. Gallbladder and biliary system: The gallbladder is only minimally distended, without calcified stones . Pancreas: The pancreas enhances homogeneously. No ductal dilatation is present. Spleen: Spleen is not enlarged, measuring 8 cm in longitudinal dimension. The spleen enhances homogeneously. Kidneys: A 6 mm well-circumscribed focus of fluid attenuation is identified within the lower pole of the left kidney, statistically a cyst. The remainder of the bilateral kidneys otherwise enhance symme trically. No hydronephrosis or bulky renal calculi. Adrenal glands: Unremarkable Gastrointestinal tract: Colonic diverticulosis without surrounding inflammation Appendix:The appendix is not definitively visualized. However, no pericecal inflammatory change is id entified suggest the presence of acute appendicitis. Vasculature: Unremarkable Lymph nodes: No pathologically enlarged or morphologically suspicious lymph nodes are identified with in the abdomen or pelvis. Pelvic structures:The uterus is anteverted and anteflexed, and otherwise unremarkable. The bladder is only minimally distended, limiting its evaluation. Body wall and musculoskeletal: No significant degenerative disease is identified within the lower tho racic and lumbosacral spines. Atrophy and focal diastases of the left rectus abdominis muscle is present. This is located within th e infraumbilical position, possibly the source of patient's discomfort approximately 4 cm to the left of midline. IMPRESSION: Atrophy and probable diastases of the left rectus abdominis muscle, in the infraumbilical position ap proximately 4 - 5cm to the left of midline for which clinical correlation is needed as to the site of patient's left lower quadrant pain. Fatty infiltration of a significantly enlarged liver as detailed above. Reviewed, dictated and finalized at location A. IMPRESSION: Atrophy and probable diastases of the left rectus abdominis muscle, in the infr aumbilical position approximately 4 - 5cm to the left of midline for which clin ical correlation is needed as to the site of patient's left lower quadrant pain . Fatty infiltration of a significantly enlarged liver as detailed above.
== END 2024-01-28 13:14 | disposition home or self-care (01) ==
LOC: ANHIMG 13:14
PROVIDERS: PCP Family Medicine Adolescent Medicine; Visit Provider Nurse Practitioner Family
DX: M62.58 Muscle wasting and atrophy, not elsewhere classified, other site (principal); K76.0 Fatty (change of) liver, not elsewhere classified; R10.32 Left lower quadrant pain
CPT/HCPCS: 74177; Q9967

== ENCOUNTER 2024-05-28 11:03 | Outpatient (CLI) | payer OTHER, SELFPAY ==
--- OUTSIDE RECORDS SUMMARY | 2024-05-28 11:36 | XMS_ITS | Referral Summary ---
Author Organization [facility] Address [address] [place] [address] Care Team Providers Care Fuel Distribution System Operator Name Role Phone Quinton Ledbetter FRUIT AND VEGETABLE PARER-SINGLE RESOURCE BOSS Primary Care Provider Source Comments [facility],non-owned Affiliates and Associated Physician Practices is amultiple site organization consisting of ambulatory clinics and hospital sitesin [place], [place], [place] and [place]. This disclosure is being madepursuant to the Care Everywhere program and may not contain all information available regarding this patient. Last updated 17.[facility] Allergies Active Allergy Reactions Criticality Noted Date Comments Hydrocodone Itching 09/26/2021 Medications * Be aware that medications may not be up to date on this document. Alwaysverify current medications with the patient. Medication Sig Dispensed Refills Start Date End Date Status ALPRAZolam (XANAX) 2 MG tablet Take 2 mg by mouth once daily 09/25/2021 Active losartan-hydroCHLORO thiazide (HYZAAR) 100-25 MG tablet Take 1 tablet by mouth once daily 07/13/2021 Active gabapentin (NEURONTIN) 100 MG capsuleIndications:B enign paroxysmal positional vertigo of left ear Take 1 (one) capsule by mouth 3 times daily 270 capsule 3 09/26/2021 Active meclizine (ANTIVERT) 25 MG tabletIndications:Be nign paroxysmal positional vertigo of left ear Take 1 (one) tablet by mouth 2 times daily 180 tablet 3 09/26/2021 Active tiZANidine (Zanaflex) 4 MG tablet Take 1 tablet by mouth every 8 hours as needed 01/10/2022 Active Active Problems Problem Noted Date Diagnosed Date Abscess 09/26/2021 Altered mental status 09/26/2021 Anxiety 09/26/2021 Bipolar disorder 09/26/2021 Cobalamin deficiency 09/26/2021 Fatigue 09/26/2021 Dysuria 09/26/2021 Hyperlipidemia 09/26/2021 Neck pain 09/26/2021 Malaise and fatigue 09/26/2021 Irritable bowel syndrome 09/26/2021 Insomnia 09/26/2021 Injury of ankle 09/26/2021 Abdominal pain 09/26/2021 Pain in left foot 09/26/2021 Pain in upper limb 09/26/2021 Pityriasis versicolor 09/26/2021 Sciatica 09/26/2021 Vitamin D deficiency 09/26/2021 Steatosis of liver 10/06/2019 History of colostomy 10/24/2014 Obesity with body mass index 30 or greater 10/24 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 Immunizations Name Administration Dates Next Due TDAP (7yrs+) 06/25/2017 Social History Tobacco Use Types Packs/Day Years Used Date Smoking Tobacco: Every Day Smokeless Tobacco: Never Alcohol Use Standard Drinks/Week Comments Never 0 (1 standard drink = 0.6 oz pur e alcohol) PHQ-2 Answer Date Recorded PHQ2 TOTAL SCORE 5 01/11/2022 Sex and Gender Information Value Date Recorded Sex Assigned at Female 04/09/2022 9:29 AM STUDENT DRIVING INSTRUCTOR Gender Identity Female 04/09/2022 9:29 AM STUDENT DRIVING INSTRUCTOR Sexual Orientation Straight 04/09/2022 9: 29 AM STUDENT DRIVING INSTRUCTOR Last Filed Vital Signs Vital Sign Reading Time Taken Comments Blood Pressure 129/85 01/14/2022 7:54 AM CDT Pulse 100 01/14/2022 7:54 AM CDT Temperature 36.6 C (97.9 F) 12/07/2021 10:23 AM CDT Respiratory Rate - - Oxygen Saturation 98% 09/26/2021 7:51 AM CDT Inhaled Oxygen Concentration - - Weight 78.5 kg (173 lb) 12/07/2021 10:23 AM CDT Height 162.6 cm (5' 4 ) 12/07/2021 10:23 AM CDT Body Mass Index 29.7 12/07/2021 10:23 AM CDT Plan of Treatment Not on file Care Teams Fuel Distribution System Operator Relationship Specialty Start Date End Date Quinton Ledbetter, FRUIT AND VEGETABLE PARER-SINGLE RESOURCE BOSS [address] [place] [address] [place] [id number] PCP - General 06/15/21
--- OUTSIDE RECORDS SUMMARY | 2024-05-28 11:36 | XMS_ITS | Encounter Summary ---
Author Organization [facility] Address [address] [place] [address] Care Team Providers Care Engineering Aid Name Role Phone Halle Celis MD Primary Care Provider [phone] Sami Menjivar MD Primary Care Provider [phone] Encounter Details Date Type Department Care Team (Late st Contact Info) Description 05/03/2022 Medication Management [facility] Family & Internal Medicine [address] [address] Sebas Castro MD Social History Tobacco Use Types Packs/Day Years Used Date Smoking Tobacco: Every Day Cigarettes Smokeless Tobacco: Never Alcohol Use Standard Drinks/Week Comments Yes 0 (1 standard drink = 0.6 oz pur e alcohol) socially PHQ-2 Answer Date Recorded Patient Health Questionnaire-2 Score 6 04/18/2022 Comments No Sex and Gender Information Value Date Recorded Sex Assigned at Not on file Legal Sex Female 5:27 PM CDT Gender Identity Not on file Sexual Orientation Not on file COVID-19 Exposure Response Date Recorded In the last 10 days, have yo u been in contact with someone who was confirmed or suspected to have Coronavirus/COVID-19? No / Unsure 04/18/2022 6:58 AM ASSOCIATE BUYER documented as of this encounter Plan of Treatment Not on file documented as of this encounter Visit Diagnoses Not on filedocumented in this encounter Additional Health Concerns Assessment Noted Time PHQ-9 Depression Total Score: 20 023 7:30 AM ASSOCIATE BUYER documented as of this encounter Care Teams Engineering Aid Relationship Specialty [place] [id number] [address] [place] [address] PCP - General FAMILY PRACTICE 03/26/22 08/18/22 Sami Menjivar MD [address] [address] PCP - General FAMILY PRACTICE 08/19/22 documented as of this encounter
--- OUTSIDE RECORDS SUMMARY | 2024-05-28 11:36 | XMS_ITS | Encounter Summary ---
Author Organization [facility] Address [address] [place] [address] Care Team Providers Care Medical Communication Specialist Name Role Phone Halle Celis MD Primary Care Provider [phone] Sami Menjivar MD Primary Care Provider [phone] Encounter Details Date Type Department Care Team (Late st Contact Info) Description 06/09/2022 [employer] [employer] Message Enc [facility] Family & Internal Medicine [address] [address] Halle Celis MD [address] [place] [address]. [address] [place] [address] Med Social History Tobacco Use Types Packs/Day Years [...] on file Sexual Orientation Not on file documented as of this encounter Progress Notes * Kamilah Gifford RN - 06/10/2022 10:54 AM CST Please advise. ROOM OPERATOR documented in this encounter Plan of Treatment Not on file documented as of this encounter Visit Diagnoses Diagnosis Moderate episode of recurrent major depressive disorder (CMS/HCC [facility]/HCC)- Primary Primary insomnia Persistent disorder of initiating or maintaining sleep documented in this encounter Additional Health Concerns Assessment Noted Time PHQ-9 Depression Total Score: 20 023 7:30 AM SODA ROOM OPERATOR documented as of this encounter Care Teams Medical Communication Specialist Relationship Specialty [place] [address] [place] [address] PCP - General FAMILY PRACTICE 03/26/22 08/18/22 Sami Menjivar MD [address] [address] PCP - General FAMILY PRACTICE 08/19/22 documented as of this encounter
--- OUTSIDE RECORDS SUMMARY | 2024-05-28 11:36 | XMS_ITS | Clinical Summary ---
Author Organization [facility] Address [address] [place] [address] Care Team Providers Care Plc Engineer Name Role Phone Quinton Ledbetter FUEL TANK SEALER AND TESTER-THIRD MILLER Primary Care Provider Source Comments [facility],non-owned Affiliates and Associated Physician Practices is amultiple site organization consisting of ambulatory clinics and hospital sitesin [place], [place], [place] and [place]. This disclosure is being madepursuant to the Care Everywhere program and may not contain all information available regarding this patient. Last updated 17.[facility] Allergies Active Allergy Reactions Criticality Noted Date [...] Sex Assigned at Female 04/09/2022 9:29 AM FIRE ALARM INSTALLER Gender Identity Female 04/09/2022 9:29 AM FIRE ALARM INSTALLER Sexual Orientation Straight 04/09/2022 9: 29 AM FIRE ALARM INSTALLER Last Filed Vital Signs Vital Sign Reading [...] 12/07/2021 10:23 AM CDT Plan of Treatment Health Maintenance Due Date Last Done Comments PAP SMEAR 1987 HIV SCREENING 2002 HEPATITIS C SCREENING 04/12/2005 HEPATITIS B VACCINE (1 of 3 - 19+ 3-dose series) 2006 PNEUMOCOCCAL VACCINE (1 of 2 - PCV) 2006 COVID-19 VACCINE (3 - 2023-2 5 season) 2023 09/26/2020, 08/17/2020 INFLUENZA VACCINE (#1) 2023 DTAP/TDAP/TD VACCINES (2 - T d or Tdap) 06/26/2027 06/25/2017 ZOSTER VACCINE (1 of 2) 2037 HIB VACCINE Aged Out No longer eligi ble based on patient's age to complete this topic HPV VACCINE Aged Out No longer eligi ble based on patient's age to complete this topic MENINGOCOCCAL (Group B) VACCINE Aged Out No longer eligible b ased on patient's age to complete this topic MENINGOCOCCAL VACCINE Aged Out No eufemia radha eligible based on patient's age to complete this topic Care Teams Plc Engineer Relationship Specialty Start Date End Date Quinton Ledbetter, FUEL TANK SEALER AND TESTER-THIRD MILLER [address] [place] [address] PCP - General 06/15/21
--- OUTSIDE RECORDS SUMMARY | 2024-05-28 11:36 | XMS_ITS | Clinical Summary ---
Author Organization [facility] Address [address] [place] [address] Care Team Providers Care Risk Lead Name Role Phone Adele Person BI Primary Care Provider [phone] Allergies Active Allergy Reactions Criticality Noted Date Comments Hydrocodone-Acetaminophen Medications ALPRAZolam (XANAX) 1 mg tablet 06/29/19 23 Active albuterol HFA (PROVENTIL HFA,VENTOLIN HFA,PROAIR HFA) 90 mcg/actuation inhaler 2 puffs 11/15/19 22 Active cyanocobalamin, vitamin B-12, (VITAMIN B-12 INJ) Vitamin B12 Active syringe, disposable, 1 mL syringe Use with B12 injection 06/21/19 23 Active norethindrone ac-eth estradioL (MICROGESTIN 04/26) 1-20 mg-mcg per tablet norethindrone acetate 1 mg-ethinyl estradiol 20 mcg tablet TAKE 1 TABLET BY MOUTH DAILY Active amLODIPine (NORVASC) 5 mg tablet 06/18/19 23 Active azelastine (ASTELIN) 137 mcg (0.1 %) nasal spray azelastine 137 mcg (0.1 %) nasal spray aerosol USE 1 SPRAY IN EACH NOSTRIL EVERY 12 HOURS Active dicyclomine (BENTYL) 10 mg capsule TAKE ONE CAPSULE BY MOUTH THREE TIMES DAILY NEEDED FOR ABDOMINAL PAIN 04/10/19 23 Active doxepin (SINEquan) 100 mg capsule 06/11/19 23 Active DULoxetine 40 mg capsule,delayed release(DR/EC) duloxetine 40 mg capsule,delayed release TAKE 1 CAPSULE BY MOUTH TWICE DAILY Active ergocalciferol (VITAMIN D) 50,000 unit capsule TAKE 1 CAPSULE BY MOUTH 1 TIME WEEKLY 06/17/19 23 Active fluticasone propionate (FLONASE) 50 mcg/actuation nasal spray Administer into each nostril daily 05/25/19 23 Active gabapentin (NEURONTIN) 100 mg capsule gabapentin 100 mg capsule TAKE 1 CAPSULE BY MOUTH THREE TIMES DAILY Strength: 100 mg 09/27/19 22 Active tiZANidine (ZANAFLEX) 4 mg tablet tizanidine 4 mg tablet TAKE 1 TABLET BY MOUTH EVERY 6 TO 8 HOURS NEEDED 01/11/20 Active losartan-hydrochlo rothiazide (HYZAAR) 100-25 mg per tablet losartan 100 mg-hydrochlorothi azide 25 mg tablet Take 1 tablet(s) every day by oral route. Strength: 100-25 mg 07/14/19 Active ondansetron ODT (ZOFRAN-ODT) 4 mg disintegrating tablet DISSOLVE 1 TABLET ON THE TONGUE EVERY 6 HOURS FOR 3 DAYS NEEDED FOR NAUSEA OR VOMITING 08/17/19 Active meclizine (ANTIVERT) 25 mg tablet Take 25 mg by mouth 2 (two) times a day 09/27/19 22 Active BD Insulin Syringe 1 mL 25 x 1 syringe USE TO INJECT B12 WEEKLY 06/21/19 23 Active Active Problems Problem Noted Date Diagnosed Date BMI 30.0-30.9,adult 07/02/2022 Abdominal pain 09/26/2021 Abscess 09/26/2021 Altered mental status 09/26/2021 Dysuria 09/26/2021 Fatigue 09/26/2021 Injury of ankle 09/26/2021 Malaise and fatigue 09/26/2021 Neck pain 09/26/2021 Pain in left foot 09/26/2021 Pain in upper limb 09/26/2021 Pityriasis versicolor 09/26/2021 Sciatica 09/26/2021 Obesity with body mass index 30 or greater 11/24 Anxiety 11/02/2019 Depressive disorder 11/02/2019 Cobalamin deficiency 11/02/2019 Hyperlipidemia 11/02/2019 Insomnia 11/02/2019 Irritable bowel syndrome 11/02/2019 Vitamin D deficiency 11/02/2019 Steatosis of liver 10/06/2019 Obesity with body mass index 30 or greater 10/24 History of colostomy 10/24/2014 Colostomy malfunction (CMS/HCC) 08/18/2014 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 Immunizations Immunization Administration Dates Next Due Tdap 06/25/2017 Surgical History Surgery Date Site/Laterality Comments DENTAL SURGERY COLOSTOMY Medical History Medical History Date Comments Anxiety Depression Bipolar 1 disorder (HCC) IBS (irritable bowel syndrome) Vitamin B 12 deficiency History of colostomy reversal Hypertension Family History Medical History Relation Name Comments Hypertension Mother Family history of hypertension - (Added by TW Conv) Relation Name Status Comments Father Alive Mother Alive Social History Tobacco Use Types Packs/Day Years Used Date Smoking Tobacco: Never PHQ-2 Answer Date Recorded PHQ-2 Total Score (If total score is 3 or more points, staff should administer the PHQ-9) 6 07/02/2022 Personal Safety Answer Date Recorded Getting School Help Needed Not on file 05/30 Comments Unknown Sex and Gender Information Value Date Recorded Sex Assigned at Not on file Legal Sex Female 9:09 PM OB SCRUB TECH Gender Identity Not on file Sexual Orientation Not on file Obstetrics History Last Filed Vital Signs Vital Sign Reading Time Taken Comments Blood Pressure 120/78 07/02/2022 8:25 AM CDT Pulse 93 07/02/2022 8:25 AM CDT Temperature 36.7 C (98 F) 07/02/2022 8:25 AM CDT Respiratory Rate - - Oxygen Saturation 98% 07/02/2022 8:25 AM CDT Inhaled Oxygen Concentration - - Weight 83.9 kg (185 lb) 07/02/2022 8:25 AM CDT Height 165.1 cm (5' 5 ) 07/02/2022 8:25 AM CDT Body Mass Index 30.79 07/02/2022 8:25 AM CDT Plan of Treatment Health Maintenance Due Date Last Done Comments Cervical Cancer Screening 1987 Hepatitis C Screening 1987 Varicella Vaccines (1 of 2 - 13+ 2-dose series) 2000 Hepatitis B Screening 2005 Regular Well Visit/Exam 18-64 2005 Pneumococcal vaccine <65 (1 of 2 - PCV) 2006 Depression Screening 07/03/2023 07/02/2022 Covid-19 Vaccine (3 - 2023-2 5 season) 2023 09/26/2020, 08/17/2020 Influenza Vaccine (#1) 2023 DTaP/Tdap/Td Vaccine (2 - Td or Tdap) 06/26/2027 06/25/2017 HPV Vaccines Aged Out No longer eligi ble based on patient's age to complete this topic Insurance [facility] Care Teams Risk Lead Relationship Specialty Start Date End Date Adele Person [place] [address] PCP - General Family Practice 01/30/24
--- OUTSIDE RECORDS SUMMARY | 2024-05-28 11:36 | XMS_ITS | Data Portability ---
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 Plan of Treatment Reminders Order Date Submit Date Provider Last Modified By Organization Details Last Modified Time Details Appointments None recorded. Lab hepatic function panel, serum 2020 021 [facility] (Lab), [address], [place], [address], 1 20:43:17 CBC w/ auto diff 2020 021 [facility] (Lab), [address], [place], [address], 1 20:17:12 BMP, serum or plasma 2020 021 [facility] (Lab), [address], [place], [address], 1 20:43:21 mitochondr ial Ab, serum 2020 021 [facility] (Lab), [address], [place], [address], 1 15:09:45 PT/INR 2020 021 [facility] (Lab), [address], [place], [address], 1 19:51:34 PT/INR 2020 021 [facility] (Lab), [address], [place], [address], 1 10:23:26 hepatic function panel, serum 2020 021 [facility] (Lab), [address], [place], [address], 1 08:31:47 BMP, serum or plasma 2020 021 [facility] (Lab), [address], [place], [address], 1 10:23:26 CBC w/ auto diff 2020 021 [facility] (Lab), [address], [place], [address], 1 10:23:26 CBC w/ diff 2019 020 [facility] (Lab), [address], [place], [address], 0 10:28:34 CMP, serum or plasma 2019 020 [facility] (Lab), [address], [place], [address], 0 20:21:20 hepatic function panel, serum 2019 020 [facility] (Lab), [address], [place], [address], 0 14:54:51 gamma-glut amyl transferas e (ggt), serum 2019 020 [facility] (Lab), [address], [place], [address], 0 17:09:19 iron + TIBC + ferritin, serum 2019 020 [facility] (Lab), [address], [place], [address], 0 14:54:51 hepatitis panel (A+B+C), acute, serum 2019 [facility] (Lab), [address], [place], [address], 0 16:12:29 ceruloplas min, serum 2019 [facility] (Lab), [address], [place], [address], 0 16:12:26 alpha-1-an titrypsin (aat), QN, serum 2019 [facility] (Lab), [address], [place], [address], 0 14:54:52 KEHINDE (antinucle ar antibodies ) panel, serum 2019 [facility] (Lab), [address], [place], [address], 0 15:10:07 liver-kidn ey microsome type 1 igg Ab, serum 2019 [facility] (Lab), [address], [place], [address], 0 14:54:52 smooth muscle Ab, serum 2019 [facility] (Lab), [address], [place], [address], 0 14:54:52 PT/PTT, plasma 2019 [facility] (Lab), [address], [place], [address], 0 20:52:[address]/dietiti an referral 2019 020 [facility], [address] [place], [address], 0 15:32:41 Procedures None recorded. Surgeries None recorded. Imaging None recorded. Medication Orders Imodium A-D 2 mg tablet 2019 020 [id number], [address] [facility], [place], [place], [id number], 1 10:08:50 Patient TargetsNo targets recorded. Patient Instructions Encounter Date Encounter Id Patient Instructions Last Modified By Organization Details Last Modified Time 11/25/2019 [id number] medical record request* - All surgical reports, colonoscopy and EGD operative reports and associated pathology reports. [email or web address] Not available 08/19/2020 09:24:51 medical record request* [email or web address] Not available 08/19/2020 09:25:01 Further educatio n at next visit due to patient crying at this encounter. rloar Not available 11/25/2019 10:17:10 12/23/2019 [id number] starting a weigh t loss plan: care instructions rloar Not available 12/23/2019 10:03:22 learning about the mediterranean diet rloar Not available 12/23/2019 10:03:21 medical record request* - EGD and associated pathology reports from 1999 to present [email or web address] Not available 08/19/2020 09:25:12 Weight loss lead s to improvement in liver biochemical tests, liver histology, serum insulin levels and quality of life. Maintain a healthy weight. Lose weight if you are overweight or obese Eat a healthy diet. Try to limit salt and sugar. You can eat fruits, vegetables and whole grains. The Mediterranean Diet is a good choice. Exercise regularly. This can help you lose weight and reduce fat in the liver Lower your cholesterol and triglycerides Avoid all alcohol Only take medicines that you need and follow dosing recommendations. If you want to take any dietary supplements like vitamins and herbal remedies, please call the office first. Talk to your primary care provider about getting vaccinations for hepatitis A and B, an annual flu vaccine and vaccinations for pneumococcal disease rloar Not available 12/23/2019 09:58:47 05/25/2020 [id number] RL Understanding Your FibroScan Results rloar Not available 05/25/2020 15:55:24 learning about the mediterranean diet rloar Not available 05/25/2020 15:55:24 Reason for Referral Material Checker/dietitian Refer ral for Alcoholic fatty liver Fatty liver, obesity Referring Physician: Ash Gibbs, Gastroenterology, Encounter Date: 12/23/2019 Results Created Date Observation Date Name Description Value Unit Range Abnormal Flag Note LastModifiedBy Organization Detail LastModifiedTime 11/25/19 20 11/25/2019 CMP, serum or plasm a glucose, serum 104 mg/dL 65-99 high Not Available [facility] (Lab) [address] [place], [address], 11/25/2019 20:21:20 11/25/19 20 11/25/2019 CMP, serum or plasm a BUN 5 mg/dL 8-26 low Not Available [facility] (Lab) [address] [place], [address], 11/25/2019 20:21:20 11/25/19 20 11/25/2019 CMP, serum or plasm a creatinine, serum 0.67 mg/dL 0.50-1 .40 Not Available [facility] (Lab) [address] [place], [address], 11/25/2019 20:21:20 11/25/19 20 11/25/2019 CMP, serum or plasm a BUN/creatnin e ratio 7.0 Not Available [facility] (Lab) [address] [place], [address], 11/25/2019 20:21:20 11/25/19 20 11/25/2019 CMP, serum or plasm a sodium, serum 139.9 mEq/L 136.0- 144.0 Not Available [facility] (Lab) [address] [place], [address], 11/25/2019 20:21:20 11/25/19 20 11/25/2019 CMP, serum or plasm a potassium, serum 4.3 mmol/ L 3.5-5. 3 Not Available [facility] (Lab) [address] [place], [address], 11/25/2019 20:21:20 11/25/19 20 11/25/2019 CMP, serum or plasm a chloride, serum 105 mmol/ l 101-11 1 Not Available [facility] (Lab) [address] [place], [address], 11/25/2019 20:21:20 11/25/19 20 11/25/2019 CMP, serum or plasm a carbon dioxide total 22.1 mmol/ L 21.0-3 2.0 Not Available [facility] (Lab) [address] [facility], [place], [address], 11/25/2019 20:21:20 11/25/19 20 11/25/2019 CMP, serum or plasm a aniongp 17.0 mmol/ L Not Available [facility] (Lab) [address] [place], [address], 11/25/2019 20:21:20 11/25/19 20 11/25/2019 CMP, serum or plasm a calcium, serum 9.6 mg/dL 8.2-10 .0 Not Available [facility] (Lab) [address] [facility], [place], [address], 11/25/2019 20:21:20 11/25/19 20 11/25/2019 CMP, serum or plasm a total protein 7.4 g/dL 6.7-8. 2 Not Available [facility] (Lab) [address] [place], [address], 11/25/2019 20:21:20 11/25/19 20 11/25/2019 CMP, serum or plasm a albumin, serum 4.6 g/dL 3.5-5. 5 Not Available [facility] (Lab) [address] [place], [address], 11/25/2019 20:21:20 11/25/19 20 11/25/2019 CMP, serum or plasm a agratio 1.7 Not Available [facility] (Lab) [address] [place], [address], 11/25/2019 20:21:20 11/25/19 20 11/25/2019 CMP, serum or plasm a bilt 0.2 mg/dL 0.0-1. 2 Not Available [facility] (Lab) [address] [place], [address], 11/25/2019 20:21:20 11/25/19 20 11/25/2019 CMP, serum or plasm a AST 21.5 U/L 10.0-4 2.0 Not Available [facility] (Lab) [address] [place], [address], 11/25/2019 20:21:20 11/25/19 20 11/25/2019 CMP, serum or plasm a ALT 18.0 U/L 10.0-6 0.0 Not Available [facility] (Lab) [address] [place], [address], 11/25/2019 20:21:20 11/25/19 20 11/25/2019 CMP, serum or plasm a alk phos 96.7 IU/L 42.0-1 21.0 Not Available [facility] (Lab) [address] [facility], [place], [address], 11/25/2019 20:21:20 11/25/19 20 11/25/2019 CMP, serum or plasm a osmol 277.0 mOsm/ L 275.0- 301.0 Not Available [facility] (Lab) [address] [place], [address], 11/25/2019 20:21:20 11/25/19 20 11/25/2019 CMP, serum or plasm a eGFR, AM 132 m/lmi n/1.7 3_m >=60 Not Available [facility] (Lab) [address] [place], [address], 11/25/2019 20:21:20 11/25/19 20 11/25/2019 PT/PT T, plasm a PT 9.9 secon ds 9.3-11 .4 Not Available [facility] (Lab) [address] [place], [address], 11/25/2019 20:52:53 11/25/19 20 11/25/2019 PT/PT T, plasm a INR 0.9 0.4-2. 0 Not Available [facility] (Lab) [address] [place], [address], 11/25/2019 20:52:53 11/25/19 20 11/25/2019 PT/PT T, plasm a PTT 27.3 secon ds 24.0-3 2.0 Not Available [facility] ([facility]) [address] [place], [address], 11/25/2019 20:52:53 11/25/19 20 11/25/2019 PT/PT T, plasm a coagcom Please note Refere nce Range has change d Not Available [facility] (Lab) [address], [place], [address], 11/25/2019 20:52:53 11/25/19 20 11/25/2019 CBC w/ auto diff WBC 9.6 K/uL 3.4-10 .8 Not Available [facility] (Lab) [address] [place], [address], 11/25/2019 20:59:32 11/25/19 20 11/25/2019 CBC w/ auto diff red blood count 4.3 M/uL 4.2-5. 4 Not Available [facility] (Lab) [address] [place], [address], 11/25/2019 20:59:32 11/25/19 20 11/25/2019 CBC w/ auto diff hemoglobin 14.3 g/dL 11.5-1 5.5 Not Available [facility] (Lab) [address] [place], [address], 11/25/2019 20:59:32 11/25/19 20 11/25/2019 CBC w/ auto diff hematocrit 43.9 % 36.0-4 8.0 Not Available [facility] (Lab) [address] [place], [address], 11/25/2019 20:59:32 11/25/19 20 11/25/2019 CBC w/ auto diff MCV 102 fL 80-95 high Not Available [facility] (Lab) [address] [place], [address], 11/25/2019 20:59:32 11/25/19 20 11/25/2019 CBC w/ auto diff MCH 33 pg 27-32 high Not Available [facility] (Lab) [address] [place], [address], 11/25/2019 20:59:32 11/25/19 20 11/25/2019 CBC w/ auto diff MCHC 33 g/dL 32-36 Not Available [facility] (Lab) [address] [place], [address], 11/25/2019 20:59:32 11/25/19 20 11/25/2019 CBC w/ auto diff platelets 425 K/uL 155-37 9 high Not Available [facility] (Lab) [address] [place], [address], 11/25/2019 20:59:32 11/25/19 20 11/25/2019 CBC w/ auto diff RDW 12.8 % 11.5-1 4.5 Not Available [facility] (Lab) [address] [place], [address], 11/25/2019 20:59:32 11/25/19 20 11/25/2019 CBC w/ auto diff MPV 10.7 fL 8.9-12 .7 Not Available [facility] (Lab) [address] [place], [address], 11/25/2019 20:59:32 11/25/19 20 11/25/2019 CBC w/ auto diff neutrophils absolute 6.4 K/uL 1.4-7. 0 Not Available [facility] (Lab) [address] [place], [address], 11/25/2019 20:59:32 11/25/19 20 11/25/2019 CBC w/ auto diff lymphs (absolute) 2.4 K/uL 0.7-3. 1 Not Available [facility] (Lab) [address] [place], [address], 11/25/2019 20:59:32 11/25/19 20 11/25/2019 CBC w/ auto diff monocytes (absolute) 0.6 K/uL 0.1-0. 9 Not Available [facility] (Lab) [address] [place], [address], 11/25/2019 20:59:32 11/25/19 20 11/25/2019 CBC w/ auto diff eos (absolute) 0.1 K/uL 0.0-0. 4 Not Available [facility] (Lab) [address] [place], [address], 11/25/2019 20:59:32 11/25/19 20 11/25/2019 CBC w/ auto diff baso (absolute) 0.0 K/uL 0.0-0. 3 Not Available [facility] (Lab) [address] [facility], [place], [address], 11/25/2019 20:59:32 11/25/19 20 11/25/2019 CBC w/ auto diff neut % 66.2 % 40.0-7 4.0 Not Available [facility] (Lab) [address] [place], [address], 11/25/2019 20:59:32 11/25/19 20 11/25/2019 CBC w/ auto diff lymphs % 25.2 % 14.0-4 6.0 Not Available [facility] (Lab) [address] [place], [address], 11/25/2019 20:59:32 11/25/19 20 11/25/2019 CBC w/ auto diff mono % 6.6 % 4.0-12 .0 Not Available [facility] (Lab) [address] [place], [address], 11/25/2019 20:59:32 11/25/19 20 11/25/2019 CBC w/ auto diff eos % 2 % 0-5 Not Available [facility] (Lab) [address] [place], [address], 11/25/2019 20:59:32 11/25/19 20 11/25/2019 CBC w/ auto diff baso % 0.2 % 0.0-1. 0 Not Available [facility] (Lab) [address] [place], [address], 11/25/2019 20:59:32 11/25/19 20 11/26/2019 KEHINDE (anti nucle ar antib odies ) panel , serum anti-DNA (ds) Ab qn <1 IU/mL 0-9 Negat shailesh <5 Equiv ocal 5 - 9 Posit shailesh >9 Not Available [facility] (Lab) [address] [facility], [place], [address], 11/26/2019 15:10:07 11/25/19 20 11/26/2019 KEHINDE (anti nucle ar antib odies ) panel , serum articulation officer antibodies <0.2 ai 0.0-0. 9 Not Available [facility] (Lab) [address] [place], [address], 11/26/2019 15:10:07 11/25/19 20 11/26/2019 KEHINDE (anti nucle ar antib odies ) panel , serum peters antibodies <0.2 ai 0.0-0. 9 Not Available [facility] (Lab) [address] [place], [address], 11/26/2019 15:10:07 11/25/19 20 11/26/2019 KEHINDE (anti nucle ar antib odies ) panel , serum antisclerode rma-70 antibodies <0.2 ai 0.0-0. 9 Not Available [facility] (Lab) [address] [place], [address], 11/26/2019 15:10:07 11/25/19 20 11/26/2019 KEHINDE (anti nucle ar antib odies ) panel , serum sjogren's anti-ss-A <0.2 ai 0.0-0. 9 Not Available [facility] (Lab) [address] [place], [address], 11/26/2019 15:10:07 11/25/19 20 11/26/2019 KEHINDE (anti nucle ar antib odies ) panel , serum sjogren's anti-ss-B <0.2 ai 0.0-0. 9 Not Available [facility] (Lab) [address] [place], [address], 11/26/2019 15:10:07 11/25/19 20 11/26/2019 KEHINDE (anti nucle ar antib odies ) panel , serum antichromati n antibodies <0.2 ai 0.0-0. 9 Not Available [facility] (Lab) [address] [place], [address], 11/26/2019 15:10:07 11/25/19 20 11/26/2019 KEHINDE (anti nucle ar antib odies ) panel , serum anti-cecy-1 <0.2 ai 0.0-0. 9 Not Available [facility] (Lab) [address] [place], [address], 11/26/2019 15:10:07 11/25/19 20 11/26/2019 KEHINDE (anti nucle ar antib odies ) panel , serum anti-centrom ere B antibodies <0.2 ai 0.0-0. 9 Not Available [facility] (Lab) [address] [place], [address], 11/26/2019 15:10:07 11/25/19 20 11/26/2019 KEHINDE (anti nucle ar antib odies ) panel , serum see below: [facility] Autoa ntibo dy Disea se Assoc iatio n ----- ----- ----- ----- ----- ----- ----- ----- ----- ----- ----- ----- Dada beckfordgin ----- ----- ----- ----- - ----- ----- ----- ----- ---- ----- ---- Antin uclea r Nic cochrany, SLE, mixed conne ctive Direc t (KEHINDE- D) tissu e disea ses ----- ----- ----- ----- - ----- ----- ----- ----- ---- ----- ---- dsDNA SLE 40 - 60% ----- ----- ----- ----- - ----- ----- ----- ----- ---- ----- ---- Chrom atin Drug induc ed SLE 90% SLE 48 - 97% ----- ----- ----- ----- - ----- ----- ----- ----- ---- ----- ---- SSA (Ro) SLE 25 - 35% Sjogr en's Syndr ome 40 - 70% Neona juanito Lupus 100% ----- ----- ----- ----- - ----- ----- ----- ----- ---- ----- ---- SSB (La) SLE 10% Sjogr en's Syndr ome 30% ----- ----- ----- ----- - ----- ----- ----- ----- --- ----- ---- Sm (anti -Milo h) SLE 15 - 30% ----- ----- ----- ----- - ----- ----- ----- ----- --- ----- ---- INSTRUMENT REPAIRER HELPER Mixed Conne ctive Tissu e Disea se 95% (U1 nRNP, SLE 30 - 50% anti- ribon ucleo prote in) Polym yosit is and/o r [place] tomyo sitis 20% ----- ----- ----- ----- - ----- ----- ----- ----- ---- ----- ---- Scl-7 0 (anti DNA Scler oderm a (diff use) 20 - 35% topoi nita ase) Crest 13% ----- ----- ----- ----- - ----- ----- ----- ----- ---- ----- ---- Cecy-1 Polym yosit is and/o r [place] tomyo sitis 20 - 40% ----- ----- ----- ----- - ----- ----- ----- ----- ---- ----- ---- Centr omere B Scler oderm a - Crest varia nt 80% Not Available [facility] (Lab) [address] [place], [address], 11/26/2019 15:10:07 11/25/1911/26/2019 liver -kidn ey micro some Ab, serum liver-kidney microsomal Ab 1.3 units 0.0-20 .0 Negat shailesh 0.0 - 20.0 Equiv ocal 20.1 - 24.9 Posit shailesh >24.9 . LKM type 1 antib odies are detec sandra in patie nts with autoi mmune hepat itis type 2 and in up to 8% of patie nts with chron ic HCV infec tion. Not Available [facility] (Lab) [address] [place], [address], 11/26/2019 16:12:23 11/25/1911/2511/26/2019 cerul oplas min, serum ceruloplasmi n 48.6 mg/dL 19.0-3 9.0 high Not Available [facility] ([facility]) [address] [place], [address], 11/26/2019 16:12:26 11/25/19 20 11/26/2019 hepat itis panel (A+B+ C), acute , serum hep A Ab, IgM Negati ve negati ve Not Available [facility] (Lab) [address] [facility], [place], [address], 11/26/2019 16:12:29 11/25/19 20 11/26/2019 hepat itis panel (A+B+ C), acute , serum HBsAg screen Negati ve negati ve Not Available [facility] (Lab) [address] [place], [address], 11/26/2019 16:12:29 11/25/19 20 11/26/2019 hepat itis panel (A+B+ C), acute , serum hep B core Ab, IgM Negati ve negati ve Not Available [facility] (Lab) [address] [place], [address], 11/26/2019 16:12:29 11/25/19 20 11/26/2019 hepat itis panel (A+B+ C), acute , serum hep C virus Ab <0.1 s/co_ ratio 0.0-0. 9 Negat shailesh: < 0.8 Indet ermin ate: 0.8 - 0.9 Posit shailesh: > 0.9 . The CDC recom mends that a posit shailesh HCV antib jeane resul t be follo wed up with a HCV Nucle ic Acid Ampli ficat ion test (5507 13). Not Available [facility] ([facility]) [address] [facility], [place], [address], 11/26/2019 16:12:29 11/25/19 20 11/26/2019 danis tin, serum or plasm a ferritin, serum 38 NG/mL 15-150 Not Available [facility] ([facility]) [address] [place], [address], 11/26/2019 16:12:30 11/25/19 20 11/26/2019 actin jayme h muscl e Ab, serum actin (smooth muscle) antibody 5 units 0-19 Negat shailesh 0 - 19 Weak posit shailesh 20 - 30 Moder ate to stron g posit shailesh >30 . Actin Antib odies are found in 52-85 % of patie nts with autoi mmune hepat itis or chron ic activ e hepat itis and in 22% of patie nts with prima ry bilia ry cirrh osis. Not Available [facility] (Lab) [address] [place], [address], 11/26/2019 17:09:13 11/25/19 20 11/26/2019 iron + total iron- man ng capac ity (TIBC ), serum iron bind.cap.(TI BC) 479 ug/dL 250-45 0 high Not Available [facility] ([facility]) [address] [facility], [place], [address], 11/26/2019 17:09:17 11/25/19 20 11/26/2019 iron + total iron- man ng capac ity (TIBC ), serum UIBC 378 ug/dL 131-42 5 Not Available [facility] ([facility]) [address] [place], [address], 11/26/2019 17:09:17 11/25/19 20 11/26/2019 iron + total iron- man ng capac ity (TIBC ), serum iron, serum 101 ug/dL 27-159 Not Available [facility] ([facility]) [address] [place], [address], 11/26/2019 17:09:17 11/25/19 20 11/26/2019 iron + total iron- man ng capac ity (TIBC ), serum iron saturation 21 % 15-55 Not Available [facility] ([facility]) [address] [place], [address], 11/26/2019 17:09:17 11/25/19 20 11/26/2019 alpha 1 antit rypsi n pheno typin g, serum or plasm a [id number] trypsin, serum 196 mg/dL 100-18 8 high Not Available [facility] (Lab) [address] [place], [address], 11/26/2019 17:09:17 11/25/19 20 11/26/2019 gamma -glut amyl trans feras e (ggt) , serum GGT 30 IU/L 0-60 Not Available [facility] (Lab) [address] [facility], [place], [address], 11/26/2019 17:09:19 12/10/19 20 12/15/2019 coppe r, 24-ho ur urine copper, urine 4 ug/L not estab. Detec tion Limit = 1 Not Available [facility] (Lab) [address] [facility], [place], [address], 12/15/2019 01:07:42 12/10/1912/15/2019 coppe r, 24-ho ur urine creatinine(c rt),U 0.54 g/L 0.30-3 .00 Detec tion Limit = 0.10 Not Available [facility] (Lab) [address] [facility], [place], [address], 12/15/2019 01:07:42 12/10/1912/15/2019 coppe r, 24-ho ur urine copper/stock repairer ratio 7 ug/g_ creat 0-49 Not Available [facility] (Lab) [address] [place], [address], 12/15/2019 01:07:42 12/10/1912/15/2019 coppe r, 24-ho ur urine copper,urine 24 HR 12 ug/24 _HR 3-35 Not Available [facility] (Lab) [address] [place], [address], 12/15/2019 01:07:42 12/26/1912/25/2020 PROTH ROMBI N TIME (PT/I NR) PT 9.5 secon ds 9.3-11 .1 Not Available [facility] (Lab) [address] [place], [address], 12/25/2020 19:51:34 12/26/19 21 12/25/2020 PROTH ROMBI N TIME (PT/I NR) INR 0.9 0.4-2. 0 Not Available [facility] ([facility]) [address] [place], [address], 12/25/2020 19:51:34 12/26/19 21 12/25/2020 PROTH ROMBI N TIME (PT/I NR) coagcom Please note Refere nce Range has change d Not Available [facility] (Lab) [address], [place], [address], 12/25/2020 19:51:34 12/26/19 21 12/25/2020 CBC W/DIF F WBC 7.5 K/uL 3.4-10 .8 Not Available [facility] (Lab) [address] [place], [address], 12/25/2020 20:17:12 12/26/19 21 12/25/2020 CBC W/DIF F red blood count 4.1 M/uL 4.2-5. 4 low Not Available [facility] (Lab) [address] [place], [address], 12/25/2020 20:17:12 12/26/19 21 12/25/2020 CBC W/DIF F hemoglobin 13.1 g/dL 11.5-1 5.5 Not Available [facility] ([facility]) [address] [place], [address], 12/25/2020 20:17:12 12/26/19 21 12/25/2020 CBC W/DIF F hematocrit 41.4 % 36.0-4 8.0 Not Available [facility] ([facility]) [address] [place], [address], 12/25/2020 20:17:12 12/26/19 21 12/25/2020 CBC W/DIF F MCV 101 fL 80-95 high Not Available [facility] (Lab) [address] [place], [address], 12/25/2020 20:17:12 12/26/19 21 12/25/2020 CBC W/DIF F MCH 32 pg 27-32 Not Available [facility] (Lab) [address] [place], [address], 12/25/2020 20:17:12 12/26/19 21 12/25/2020 CBC W/DIF F MCHC 32 g/dL 32-36 Not Available [facility] (Lab) [address] [place], [address], 12/25/2020 20:17:12 12/26/19 21 12/25/2020 CBC W/DIF F platelets 365 K/uL 155-37 9 Not Available [facility] (Lab) [address] [place], [address], 12/25/2020 20:17:12 12/26/19 21 12/25/2020 CBC W/DIF F RDW 12.5 % 11.5-1 4.5 Not Available [facility] (Lab) [address] [place], [address], 12/25/2020 20:17:12 12/26/19 21 12/25/2020 CBC W/DIF F MPV 11.0 fL 8.9-12 .7 Not Available [facility] (Lab) [address] [place], [address], 12/25/2020 20:17:12 12/26/19 21 12/25/2020 CBC W/DIF F neutrophils absolute 3.8 K/uL 1.4-7. 0 Not Available [facility] (Lab) [address] [place], [address], 12/25/2020 20:17:12 12/26/19 21 12/25/2020 CBC W/DIF F lymphs (absolute) 3.0 K/uL 0.7-3. 1 Not Available [facility] (Lab) [address] [place], [address], 12/25/2020 20:17:12 12/26/19 21 12/25/2020 CBC W/DIF F monocytes (absolute) 0.6 K/uL 0.1-0. 9 Not Available [facility] [facility] [address] [place], [address], 12/25/2020 20:17:12 12/26/19 21 12/25/2020 CBC W/DIF F eos (absolute) 0.1 K/uL 0.0-0. 4 Not Available [facility] (Lab) [address] [place], [address], 12/25/2020 20:17:12 12/26/19 21 12/25/2020 CBC W/DIF F baso (absolute) 0.0 K/uL 0.0-0. 3 Not Available [facility] (Lab) [address] [place], [address], 12/25/2020 20:17:12 12/26/19 21 12/25/2020 CBC W/DIF F neut % 50.2 % 40.0-7 4.0 Not Available [facility] (Lab) [address] [place], [address], 12/25/2020 20:17:12 12/26/19 21 12/25/2020 CBC W/DIF F lymphs % 39.8 % 14.0-4 6.0 Not Available [facility] (Lab) [address] [place], [address], 12/25/2020 20:17:12 12/26/19 21 12/25/2020 CBC W/DIF F mono % 7.9 % 4.0-12 .0 Not Available [facility] (Lab) [address] [place], [address], 12/25/2020 20:17:12 12/26/19 21 12/25/2020 CBC W/DIF F eos % 2 % 0-5 Not Available [facility] (Lab) [address] [facility], [place], [address], 12/25/2020 20:17:12 12/26/19 21 12/25/2020 CBC W/DIF F baso % 0.3 % 0.0-1. 0 Not Available [facility] (Lab) [address] [facility], [place], [address], 12/25/2020 20:17:12 12/26/19 21 12/25/2020 LIVER PANEL (HEPA TIC FUNCT ION PANEL ) total protein 6.9 g/dL 6.7-8. 2 Not Available [facility] (Lab) [address] [facility], [place], [address], 12/25/2020 20:43:17 12/26/19 21 12/25/2020 LIVER PANEL (HEPA TIC FUNCT ION PANEL ) albumin, serum 4.2 g/dL 3.5-5. 5 Not Available [facility] (Lab) [address] [facility], [place], [address], 12/25/2020 20:43:17 12/26/19 21 12/25/2020 LIVER PANEL (HEPA TIC FUNCT ION PANEL ) bilt 0.2 mg/dL 0.0-1. 2 Not Available [facility] (Lab) [address] [place], [address], 12/25/2020 20:43:17 12/26/19 21 12/25/2020 LIVER PANEL (HEPA TIC FUNCT ION PANEL ) bild <0.20 mg/dL 0.10-0 .50 Not Available [facility] (Lab) [address] [place], [address], 12/25/2020 20:43:17 12/26/19 21 12/25/2020 LIVER PANEL (HEPA TIC FUNCT ION PANEL ) AST 14.5 U/L 10.0-4 2.0 Not Available [facility] (Lab) [address] [place], [address], 12/25/2020 20:43:17 12/26/19 21 12/25/2020 LIVER PANEL (HEPA TIC FUNCT ION PANEL ) ALT 12.6 U/L 10.0-6 0.0 Not Available [facility] (Lab) [address] [place], [address], 12/25/2020 20:43:17 12/26/19 21 12/25/2020 LIVER PANEL (HEPA TIC FUNCT ION PANEL ) alk phos 66.3 IU/L 42.0-1 21.0 Not Available [facility] (Lab) [address] [place], [address], 12/25/2020 20:43:17 12/26/19 21 12/25/2020 LIVER PANEL (HEPA TIC FUNCT ION PANEL ) agratio 1.6 Not Available [facility] (Lab) [address] [place], [address], 12/25/2020 20:43:17 12/26/19 21 12/25/2020 BASIC METAB OLIC PANEL (BMP) glucose, serum 88 mg/dL 65-99 Not Available [facility] (Lab) [address] [place], [address], 12/25/2020 20:43:21 12/26/19 21 12/25/2020 BASIC METAB OLIC PANEL (BMP) BUN 5 mg/dL 8-26 low Not Available [facility] (Lab) [address] [place], [address], 12/25/2020 20:43:21 12/26/19 21 12/25/2020 BASIC METAB OLIC PANEL (BMP) creatinine, serum 0.75 mg/dL 0.50-1 .40 Not Available [facility] (Lab) [address] [place], [address], 12/25/2020 20:43:21 12/26/19 21 12/25/2020 BASIC METAB OLIC PANEL (BMP) BUN/creatnin e ratio 7.2 Not Available [facility] (Lab) [address] [place], [address], 12/25/2020 20:43:21 12/26/19 21 12/25/2020 BASIC METAB OLIC PANEL (BMP) sodium, serum 140.4 mmol/ L 136.0- 144.0 Not Available [facility] (Lab) [address] [place], [address], 12/25/2020 20:43:21 12/26/19 21 12/25/2020 BASIC METAB OLIC PANEL (BMP) potassium, serum 4.1 mmol/ L 3.5-5. 3 Not Available [facility] (Lab) [address] [place], [address], 12/25/2020 20:43:21 12/26/19 21 12/25/2020 BASIC METAB OLIC PANEL (BMP) chloride, serum 104 mmol/ l 101-11 1 Not Available [facility] (Lab) [address] [place], [address], 12/25/2020 20:43:21 12/26/19 21 12/25/2020 BASIC METAB OLIC PANEL (BMP) carbon dioxide total 25.2 mmol/ L 21.0-3 2.0 Not Available [facility] (Lab) [address] [place], [address], 12/25/2020 20:43:21 12/26/19 21 12/25/2020 BASIC METAB OLIC PANEL (BMP) aniongp 16.0 mmol/ L Not Available [facility] (Lab) [address] [place], [address], 12/25/2020 20:43:21 12/26/19 21 12/25/2020 BASIC METAB OLIC PANEL (BMP) calcium, serum 9.6 mg/dL 8.2-10 .0 Not Available [facility] (Lab) [address] [place], [address], 12/25/2020 20:43:21 12/26/19 21 12/25/2020 BASIC METAB OLIC PANEL (BMP) osmol 277.0 mOsm/ L 275.0- 301.0 Not Available [facility] (Lab) [address] [place], [address], 12/25/2020 20:43:21 12/26/19 21 12/25/2020 BASIC METAB OLIC PANEL (BMP) eGFR, AM 115 m/lmi n/1.7 3_m >=60 Not Available [facility] (Lab) [address] [facility], [place], [address], 12/25/2020 20:43:21 12/26/19 21 12/26/2020 MITOC HONDR IAL ANTIB JEANE mitochondria l (M2) antibody <20.0 units 0.0-20 .0 Negat shailesh 0.0 - 20.0 Equiv ocal 20.1 - 24.9 Posit shailesh >24.9 . Mitoc hondr ial (M2) Antib odies are found in 90-96 % of patie nts with prima ry bilia ry cirrh osis. Not Available [facility] (Lab) [address] [facility], [place], [address], 12/26/2020 15:09:44 11/26/19 20 09/29/2019 US, abdom en No observ ation record ed. rloar Not Available 2019 11:15:18 06/14/19 21 04/27/2020 US, elast ogram No observ ation record ed. BARCODE [facility] (Rad) [address] [place], [address], 06/13/2020 09:04:50 Result Notes None recorded. Problems Name Problem SNOMED Code Status Onset Date Resolution Date Notes Provider Name and Address Organization Details Recorded Time Vitamin D deficiency 06191426 Active 2019 ASH LOAR, NUMEROLOGIST [address], [place] [facility] [place], [address], [place] [facility] 0 08:56:53 Cobalamin deficiency 739952192 Active 2019 ASHCora GIBBS, NUMEROLOGIST [address], [place] [facility] [place], [address] [facility] 0 08:57:03 Hyperlipid emia 65484764 Active 2019 ASH LOANGELINA, NUMEROLOGIST [address], [place] [facility] [place], [address] [facility] 0 08:57:10 Bipolar disorder 60301936 Active 2019 ASH LINA, NUMEROLOGIST [address], [facility] [place], [address], [place] [facility] 0 08:57:17 Anxiety 77739559 Active 2019 ASH SCHMIDTANGELINA, NUMEROLOGIST [address], [facility] [place], [address], [place] [facility] 0 08:57:22 Depressive disorder 83483363 Active 2019 ASH SCHMIDTANGELINA, NUMEROLOGIST [address], [place] [facility] [place], [address], [place] [facility] 0 08:57:29 Insomnia 842619512 Active 2019 ASH SCHMIDTANGELINA, NUMEROLOGIST [address], [facility] [place], [address], [place] [facility] 0 08:57:34 Irritable bowel syndrome 85245213 Active 2019 ASH LOANGELINA, NUMEROLOGIST [address], [place] [facility] [place], [address], [place] [facility] 0 08:57:44 Body mass index 30+ - obesity 872530525 Active 2019 ASH LOANGELINA, NUMEROLOGIST [address], [place] [facility] [place], [address], [place] [facility] 0 09:44:23 Steatosis of liver 695006597 Active 2019 ASH LINA, NUMEROLOGIST [address], [place], [address], [place] [facility] 0 11:15:29 Alcoholic fatty liver 64053945 Active 2019 [facility] 04/27/2020 F1, S3 ASH GIBBS NP [address], [place], [address], [place] [facility] 1 13:34:26 Irritable bowel syndrome with diarrhea 287652528 Active 2019 ASH GIBBS NP [address], [place], [address], [place] [facility] 0 09:56:50 Problem Notes None recorded. Procedures Surgical History Date Name Laterality Status Provider Name and Address Organization Details Recorded Time 09/30/19 15 closure of colostomy completed ASH GIBBS NP [address], [place], [address], [place] [facility] 11/26/2019 08:36:56 06/24/19 15 repair of rectovaginal fistula completed ASH GIBBS NP [address], [place], [address], [place] [facility] 11/26/2019 08:37:55 lysis of adhesions of peritoneum completed ASH GIBBS NP [address], [place], [address], [place] [facility] 11/25/2019 10:05:52 Imaging Results Imaging Date Name Status LastModified by Organiz ation Details LastModified Time 09/29/2019 US, abdomen completed rloar Information n ot available 11/29/2019 11:15:18 04/27/2020 US, elastogram completed [facility] [address], [place], [address], 06/13/2020 09:04:50 Procedure Notes None recorded. Medical Equipment None Reported. Allergies No known drug allergies Medications Name Sig Start Date Stop Date Status Note LastModified by Organization Details LastModified Time cyclobenz aprine 10 mg tablet 11/24 completed Not Available Not Available Not Available amoxicill in 500 mg capsule 11/24 completed Not Available Not Available Not Available prednison e 10 mg tablet 11/24 completed Not Available Not Available Not Available clindamyc in HCl 300 mg capsule TAKE 1 CAPSULE BY MOUTH EVERY 8 HOURS 12/25 completed Not Available Not Available Not Available loperamid e 2 mg capsule 05/25 completed Not Available Not Available Not Available azithromy cooc 250 mg tablet TK DIRECTED 12/25 completed Not Available Not Available Not Available alprazola m 1 mg tablet TK 2 TS PO TID 05/25 completed Not Available Not Available Not Available nystatin 100,000 unit/gram topical ointment APPLY TOPICALL Y TO THE AFFECTED AREA TWICE DAILY NEEDED FOR RASH 12/25 completed Not Available Not Available Not Available tizanidin e 4 mg tablet TAKE 1 TABLET BY MOUTH EVERY 6 TO 8 HOURS NEEDED active Not Available Not Available No t Available fluconazo le 150 mg tablet TAKE 1 TABLET BY MOUTH EVERY DAY FOR 3 DAYS 12/25 completed Not Available Not Available Not Available hydrocodo ne 5 mg-acetam inophen 325 mg tablet 11/24 completed Not Available Not Available Not Available Nystop 100,000 unit/gram topical powder APPLY 1 APPLICAT ION TOPICALL Y TO THE AFFECTED AREA TWICE DAILY 12/25 completed Not Available Not Available Not Available ondansetr on HCl 8 mg tablet TAKE 1 TABLET BY MOUTH EVERY 8 HOURS FOR 5 DAYS NEEDED 12/25 completed Not Available Not Available Not Available prednison e 20 mg tablet TAKE 2 TABLETS BY MOUTH EVERY DAY FOR 10 DAYS 12/25 completed Not Available Not Available Not Available acetamino phen 300 mg-codein e 15 mg tablet TAKE 1 TABLET BY MOUTH EVERY 8 HOURS NEEDED FOR PAIN 12/25 completed Not Available Not Available Not Available acetamino phen 300 mg-codein e 30 mg tablet TAKE 1 TABLET BY MOUTH FOUR TIMES DAILY NEEDED FOR PAIN 12/25 completed Not Available Not Available Not Available triamcino lone acetonide 0.1 % topical cream APPLY THIN LAYER TOPICALL Y TO THE AFFECTED AREA TWICE DAILY NEEDED FOR RASH 12/25 completed Not Available Not Available Not Available terbinafi ne HCl 250 mg tablet TAKE 1 TABLET BY MOUTH EVERY DAY FOR 14 DAYS 12/25 completed Not Available Not Available Not Available amoxicill in 875 mg tablet TAKE 1 TABLET BY MOUTH EVERY 12 HOURS 12/25 completed Not Available Not Available Not Available Imodium A-D 2 mg tablet Take two tablets by mouth with the first loose stool of the day, then one tablet by mouth with each loose stool of the day, no more than 6 tablets daily 2020 active Not Available Not Available Not Avai lable fluconazo le 50 mg tablet TAKE 1 TABLET BY MOUTH DAILY 12/25 completed Not Available Not Available Not Available nystatin 100,000 unit/gram topical cream APPLY TOPICALL Y TO THE AFFECTED AREA TWICE DAILY NEEDED FOR RASH 12/25 completed Not Available Not Available Not Available promethaz ine 25 mg tablet TAKE 1 TABLET BY MOUTH EVERY 4 TO 6 HOURS NEEDED 12/25 completed Not Available Not Available Not Available hydrocort isone 2.5 % topical cream APPLY TOPICALL Y TO THE AFFECTED AREA TWICE DAILY NEEDED FOR RASH 12/25 completed Not Available Not Available Not Available norethind dago acetate 1 mg-ethiny l estradiol 20 mcg tablet TAKE 1 TABLET BY MOUTH DAILY active Not Available Not Available No t Available alprazola m 2 mg tablet TAKE 1 TABLET BY MOUTH EVERY 6 HOURS NEEDED active Not Available Not Available No t Available ergocalci ferol (vitamin D2) 1,250 mcg (50,000 unit) capsule TAKE 1 CAPSULE BY MOUTH 1 TIME WEEKLY active Not Available Not Available No t Available azelastin e 137 mcg (0.1 %) nasal spray USE 1 SPRAY IN EACH NOSTRIL EVERY 12 HOURS active Not Available Not Available No t Available methylpre dnisolone 4 mg tablets in a dose pack FOLLOW PACKAGE DIRECTIO NS 12/25 completed Not Available Not Available Not Available brompheni ramine-ps eudoephed rine-DM 2 mg-30 mg-10 mg/5 mL oral syrup TAKE 10 ML BY MOUTH EVERY 4 HOURS FOR 5 DAYS NEEDED 12/25 completed Not Available Not Available Not Available fluticaso ne propionat e 50 mcg/actua tion nasal spray,oksana pension SHAKE LIQUID AND USE 1 SPRAY IN EACH NOSTRIL EVERY DAY 12/25 completed Not Available Not Available Not Available doxycycli ne hyclate 100 mg tablet TAKE 1 TABLET BY MOUTH TWICE DAILY FOR 7 DAYS 12/25 completed Not Available Not Available Not Available dicyclomi ne 10 mg capsule 11/24 completed Not Available Not Available Not Available aripipraz ole 5 mg tablet TAKE 1 TABLET BY MOUTH EVERY DAY 12/25 completed Not Available Not Available Not Available duloxetin e 30 mg capsule,d elayed release TAKE ONE CAPSULE BY MOUTH TWICE DAILY 12/25 completed Not Available Not Available Not Available Virtussin AC 10 mg-100 mg/5 mL oral liquid 11/24 completed Not Available Not Available Not Available duloxetin e 40 mg capsule,d elayed release TAKE 1 CAPSULE BY MOUTH TWICE DAILY active Not Available Not Available No t Available Vitamin B12 active by injectio n per PCP Not Available Not Available Not Available Vitals Date Recorded Body height Body mass index (BMI) Body weight Body temperature Respiratory rate Heart rate Systolic blood pressure Diastolic blood pressure Provider Name and Address Organization Details Last Updated DateTime 0 162.56 cm 31.7 kg/m2 88338.5 1 g 98.3 [degF] 16 /min 91 /min 141 mm[Hg] 93 mm[Hg] Bharti Wu LPN [place] - [facility] 0 09:41:59 Date Recorded Body height Body mass index (BMI) Body weight Body temperature Heart rate Respiratory rate Systolic blood pressure Diastolic blood pressure Provider Name and Address Organization Details Last Updated DateTime 0 162.56 cm 31.8 kg/m2 78223.3 1 g 98.4 [degF] 73 /min 18 /min 129 mm[Hg] 85 mm[Hg] Bharti Wu LPN [place] [facility] 0 09:37:03 Date Recorded Body height Provider Name an d Address Organization Details Last Updated DateTime 05/25/2020 162.56 cm Bharti Wu LPN [place] [facility] 05/25/2020 15:26:06 Date Recorded Body height Body mass index (BMI) Body weight Body temperature Heart rate Respiratory rate Systolic blood pressure Diastolic blood pressure Provider Name and Address Organization Details Last Updated DateTime 1 162.56 cm 30 kg/m2 33591.5 9 g 97.8 [degF] 88 /min 16 /min 134 mm[Hg] 93 mm[Hg] Bharti Wu LPN [facility] 1 09:56:06 Social History Question Answer Notes LastModified by Organizat ion Details LastModified Time Tobacco Smoking Status Current Every Day Smoker Bharti Wu, [place], [place] - [facility] 11/25/2019 09:37:27 What Is Your Level Of Alcohol Consumption? None Prior Alcohol Drinker Information not available 11/25/2019 How Much Tobacco Do You Chew? None Information not available 11/25/2019 Which Illicit Or Recreational Drugs Have You Used? Marijuana Daily Information not available 11/25/2019 Do You Or Have You Ever Used E-cigarettes Or Vape? Never Used Electronic Cigarettes Information not available 11/25/2019 What Was The Date Of Your Most Recent Tobacco Screening? 12/25/2020 Information not available 12/25/2020 Do You Or Have You Ever Used Smokeless Tobacco? Never Used Smokeless Tobacco Information not available 11/25/2019 How Much Tobacco Do You Smoke? 1 PPD Information not available 11/25/2019 Sex: Unknown Functional Status None recorded. Mental Status None recorded. Family History Relationship Description Onset Age of this Age Resolved Age Notes LastModified by Organization Details LastModified Time Mother Essential hypertension rloar Not available 10:53:06 Mother Hypothyroidi sm rloar Not available 2019 10:53:37 Father Essential hypertension rloar Not available 10:53:15 Father Hyperlipidem ia rloar Not available 2019 10:53:49 Father Deep venous thrombosis rloar Not available 10/28 10:53:59 Sister Shelley syndrome rloar Not available 2019 10:53:27 Medical History Condition Response Coronary Artery Disease N Gout N Kidney Stones N Hyperthyroidism N Depression Y COPD N Hypothyroidism N Diverticulitis/Diverticulosis N Anxiety Disorder Y Diabetes N Bleeding Disorder N Seizures/Epilepsy N Arthritis N Tuberculosis N Hyperlipidemia Y Cancer N Stroke N Asthma N Sleep Apnea N GERD/Reflux Y Hepatitis N Liver Disease Y Cirrhosis N Heart Disease N Hypertension N Kidney Disease N Gynecological HistoryNo gynecological history recorded. Obstetrics History GPAL:G 0 P 0 0 0 0 Past Encounters Encounter ID Performer Location Encounter Start Date Encounter Closed Date Diagnosis/Indication Diagnosis SNOMED-CT Code Diagnosis ICD10 Code Diagnosis Note [id number] ASH GIBBS NP [facility] [address] [place] [address] 11/25/2019 09:21:36 11/29/2019 09:31:33 Non-alcoholic fatty liver 804159954 K76.0 Diagnosis by PCP. Labs and imaging not availableW ill discuss results and may reorder liver US, order Fibroscan at next visit. Diarrhea 17289776 R19.7 occurs after stool softener useD/C stool softener Anxiety 48402667 F41.9 Bipolar disorder 5914141 4 F31.9 Irritable bowel syndrome 87550326 K58.9 alternatin g constipati on/diarrhe aDiarrhea appears to be due to stool softener use [id number] ASH GIBBS NP [facility] [address] [place] [address] 12/23/2019 09:31:08 12/27/2019 09:05:12 Alcoholic fatty liver 41396401 K70.0 Needs FibroscanS kirsty has had an EGD in the past, but records appear to not be available. Will discuss at next visit Irritable bowel syndrome with diarrhea 471279225 K58.0 [id number] ASH GIBBS NP [facility] [address] [place] [address] 05/25/2020 15:25:06 05/29/2020 08:44:28 Alcoholic fatty liver 79754107 K70.0 Fibroscan 04/27/2020: F1, P7Rvfdyilr EtOH cessationE ncouraged weight loss, smoking cessationH andouts mailed by [facility] come to the clinic for her lab draw [id number] ASH GIBBS NP [facility] [address] [place] [address] 12/25/2020 09:46:52 12/28/2020 09:44:56 Alcoholic fatty liver 70337073 K70.0 Fibrosc[facility] 04/27/2020: F1, S310 pound weight loss since May 2020.Encou raged weight loss, smoking cessationS trongly encouraged to D/C all EtOH intake Irritable bowel syndrome with diarrhea 609449971 K58.0 Takes loperimide rarelyRefi lls not needed Tobacco user 466432644 Z 72.0 Strongly encouraged to discontinu e smoking Health Concerns Section Related Observation LastModified by Organization Detai ls LastModified Time None Recorded Concern Status LastModified by Organization Details LastModified Time None Recorded Advance Directives Directive None Recorded Payers Encounter Date Sequence Insurance Name Policy Number Policy Leblanc Covered Member ID Leblanc Member ID Guarantor Name 11/25/2019 1 [facility] (MEDICAID HMO) [id number] Gina Raeann [id number] Gina Raeann 12/23/2019 1 [facility] (MEDICAID HMO) [id number] Gina Raeann [id number] Gina Raeann 05/25/2020 1 [facility] (MEDICAID HMO) [id number] Gina Raeann [id number] Gina Raeann 12/25/2020 1 [facility] (MEDICAID HMO) [id number] Gina Raeann [id number] Gina Raeann Notes Date Note Type Note Provider Name and Address Organization Details Recorded Time 11/25/2019 text/html Presents as refe rred by GUILHERME Hoang at [facility] for NAFLD. Had an US at [facility] on 09/15/2019 results not available. Labs from PCP not available. Last colonoscopy 05/09/2015 and EGD normal per PCP Ambulatory Summary #[id number]. Has not had colonoscopy or EGD since that time. Unknown if polyps were removed. History of colostomy with reversal. Colostomy was done after being impaled by a bar stool leg . Tobacco: 1 PPDEtOH: [employer] hard lemonade not very often Marijuana: daily 3.5 grams daily, denies other recreational drugsCaffeine: 2 - 3 12-oz sodas daily, sweet tea: 3 - 4 glasses/day ASH GIBBS NP [address] [place], [address], [place] [facility] 11/25/2019 10:20:05 12/23/2019 text/html Presents for fol low up of NAFLD, as referred by GUILHERME Hoang at [facility] for NAFLD. Had an US at [facility] on 09/15/2019 with diffuse hepatic steatosis. Previous EtOH: I had a drinking problem in my 20's , has had episodes of passing out : 1 fifth hard liquor, mostly vodka weekly.Now: Every 2 weeks, 1 drink ASH GIBBS NP [address] [place], [address], [facility] - [facility] 12/23/2019 10:04:10 05/25/2020 text/html Phone consent: T his visit was completed via telephone due to social distancing and the restrictions of the COVID-19 pandemic. Vital signs deferred. All issues as below were discussed and addressed but no physical exam was performed. If it was felt that the patient should be evaluated in the clinic, then they were directed there. The patient verbally consented to the visit. Provider location: office Patient location: patient home Duration of appointment: 12 minutes Patient declined the use of video technology for this encounter. Presents for follow up for alcoholic fatty liver disease and results of Fibroscan of 04/27/2020: F1, S3 EtOH: none. Last drink was New Years.Tobacco: 1/2 to 1 PPDRecreational drugs: marijuana, daily Has had some occasional constipation after taking loperimide.Denies fever, chills, difficulty swallowing, nausea, vomiting, heartburn, reflux, abdominal pain, bloating, diarrhea, bloody stools, excessive belching or flatus. ASH GIBBS NP [address], [place], [address], [facility] - [facility] 05/25/2020 15:55:29 12/25/2020 text/html Presents for fol low up for alcoholic fatty liver and IBS-D. Last seen 05/25/2020 per telemedicine. Imaging 04/27/2020: Fibroscan F1, D6Ebaczkl 09/28/2020: US abdomen: diffuse hepatic steatosis Labs 11/25/2019CMP: Normal LFTsINR: 0.9CBC: Hgb 14.3, Hct 43.9, plts 425ANA, LKM1, smooth muscle antibody, GGT WNLCeruloplasmin: 48.6, 24 hour urine copper WNLHepatitis panel negativeFerritin: 38Alpha 1 antitrypsin 196Documented Weights05/25/2020: 185.2 pounds, BMI 31.: 174.7, BMI 30EtOH: Last drink was 1 month ago: 16 ounce Smirnoff Spritzer.Tobacco: 1/2 to 1 PPDRecreational drugs: marijuana, daily Takes loperimide 1-2x/month Denies fever, chills, chest pain, shortness of breath, difficulty swallowing, nausea, vomiting, hematemesis, heartburn, reflux, abdominal pain, bloating, diarrhea, constipation, bloody stools, excessive belching or flatus, bleeding gums, easy bruising. ASH GIBBS, NUMEROLOGIST [address] [place], [address], [facility] - [facility] 12/25/2020 10:11:44 OBGyn Episode No OBEpisode recorded.
--- OUTSIDE RECORDS SUMMARY | 2024-05-28 11:36 | XMS_ITS | Clinical Summary ---
Author Organization [facility] Care Team Providers Care Tow Driver Name Role Phone Unavailable Primary Care Provider Unavailabl e Social History Tobacco Use Types Packs/Day Years Used Date Smoking Tobacco: Never Assessed Comments Unknown Sex and Gender Information Value Date Recorded Sex Assigned at Not on file Legal Sex Female 12:51 PM CDT Gender Identity Not on file Sexual Orientation Not on file Plan of Treatment Health Maintenance Due Date Last Done Comments Hepatitis C Virus (HCV) Screening 1987 Hepatitis B Immunization (1 of 3 - 19+ 3-dose series) 2006 Pap Smear 2008 Cervical Cancer Screening (CCS) 2017 HPV/Cotest 2017 Influenza Immunization (#1) 2023 SARS-COV-2 Immunization ( season) 2023 09/26/2020, 08/17/2020 Respiratory Syncytial Virus (RSV) Immunization (Adult) (1 - 1-dose 75+ series) 2062 DTaP/Tdap/Td Immunization Discontinued 06/25/2017 TdaP Immunization Completed 06/25/2017 Meningococcal Immunization (ACWY) Aged Out No longer eligible based on patient's age to complete this topic Pneumococcal Immunization Combined Aged Out No longer eligible based on patient's age to complete this topic Rotavirus Immunization Aged Out No lo nger eligible based on patient's age to complete this topic
--- OUTSIDE RECORDS SUMMARY | 2024-05-28 11:36 | XMS_ITS | Encounter Summary ---
Author Organization [facility] Address [address] [place] [address] Care Team Providers Care Wire Winding Machine Operator Name Role Phone Halle Celis MD Primary Care Provider [phone] Sami Menjivar MD Primary Care Provider [phone] Encounter Details Date Type Department Care Team (Late st Contact Info) Description 04/24/2022 [employer] Message [facility] Family & Internal Medicine [address] [address] [facility] Social History Tobacco Use Types Packs/Day Years [...] Coronavirus/COVID-19? No / Unsure 04/18/2022 6:58 AM CAREER AGENT documented as of this encounter Plan of Treatment Not on file documented as of this encounter Visit Diagnoses Not on filedocumented in this encounter Additional Health Concerns Assessment Noted Time PHQ-9 Depression Total Score: 20 023 7:30 AM CAREER AGENT documented as of this encounter Care Teams Wire Winding Machine Operator Relationship Specialty [place] [address] [facility] [address] [place] [address] PCP - General FAMILY PRACTICE 03/26/22 08/18/22 Sami Menjivar MD [address] [address] PCP - General FAMILY PRACTICE 08/19/22 documented as of this encounter
--- OUTSIDE RECORDS SUMMARY | 2024-05-28 11:36 | XMS_ITS | Encounter Summary ---
Author Organization [facility] Address [address] [place] [address] Care Team Providers Care Link Trainer Mechanic Name Role Phone Halle Celis MD Primary Care Provider Sami Menjivar MD Primary Care Provider [phone] Encounter Details Date Type Department Care Team (Late st Contact Info) Description 04/23/2022 [place] Orderst Message Enc [facility] Family & Internal Medicine [facility] [id number] [place] [phone] Halle Celis MD [address] [place] [address]. [address] [place] [address] May have found someone Social History Tobacco Use Types Packs/Day Years [...] Coronavirus/COVID-19? No / Unsure 04/18/2022 6:58 AM ADJUNCT LATIN PROFESSOR documented as of this encounter Plan of Treatment Not on file documented as of this encounter Visit Diagnoses Not on filedocumented in this encounter Additional Health Concerns Assessment Noted Time PHQ-9 Depression Total Score: 20 023 7:30 AM ADJUNCT LATIN PROFESSOR documented as of this encounter Care Teams Link Trainer Mechanic Relationship Specialty [place] [address] [facility] [place] [address] PCP - General FAMILY PRACTICE 03/26/22 08/18/22 Sami Menjivar MD [address] [address] PCP - General FAMILY PRACTICE 08/19/22 documented as of this encounter
--- OUTSIDE RECORDS SUMMARY | 2024-05-28 11:36 | XMS_ITS | Referral Summary ---
Author Organization [facility] Address [address] [place] [address] Care Team Providers Care Bleaching Machine Operator Name Role Phone Adele Pesron BI Primary Care Provider [phone] Allergies Active Allergy Reactions Criticality Noted Date [...] Immunization Administration Dates Next Due Tdap 06/25/2017 Social History Tobacco Use Types Packs/Day [...] on file Legal Sex Female 9:09 PM [place]ARD[place] Gender Identity Not on file Sexual Orientation Not on file Last Filed Vital Signs Vital Sign Reading [...] 07/02/2022 8:25 AM CDT Plan of Treatment Not on file Insurance [facility] Care Teams Bleaching Machine Operator Relationship Specialty Start Date End Date Adele Person [place] [address] PCP - General Family Practice 01/30/24
--- OUTSIDE RECORDS SUMMARY | 2024-05-28 11:36 | XMS_ITS | Encounter Summary ---
Author Organization [facility] Address [address] [place] [address] Care Team Providers Care Side Framer Name Role Phone Halle Celis MD Primary Care Provider [phone] Sami Menjivar MD Primary Care Provider [phone] Encounter Details Date Type Department Care Team (Late st Contact Info) Description 05/05/2022 True [employer] Innovation[employer] Message Enc [facility] Family & Internal Medicine [facility] [address] [place] [phone] Halle Celis MD [address] [place] [address]. [address] [place] [address] Confused Social History Tobacco Use Types Packs/Day Years [...] Coronavirus/COVID-19? 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. [address] [place] [address] PCP - General FAMILY PRACTICE 03/26/22 08/18/22 Sami Menjivar MD [address] [address] PCP - General FAMILY PRACTICE 08/19/22 documented as of this encounter
--- OUTSIDE RECORDS SUMMARY | 2024-05-28 11:36 | XMS_ITS | Encounter Summary ---
Author Organization [facility] Address [address] [place] [address] Care Team Providers Care Mobile Service Rv Technician Name Role Phone Halle Celis MD Primary Care Provider [phone] Sami Menjivar MD Primary Care Provider [phone] Reason for Referral * Medication Prior Authorization - Closed Specialty Diagnoses / Procedures Referred By Contac t Referred To Contact Diagnoses [place] [address] [address] [place] [address] Phone: tel: fax: Referral ID Status Reason Start Date Expiration Date Visits Re quested Visits Authorized [id number] Closed 1 1 Encounter Details Date Type Department Care Team (Late st Contact Info) Description 07/03/2022 [employer] Message Enc [facility] Family & Internal Medicine [address] [address] [place] [address] [facility] [place] [address] Meds Social History Tobacco Use Types Packs/Day Years [...] suspected to have Coronavirus/COVID-19? No / Unsure 06/17/2022 2:02 PM CDT documented as of this encounter Progress Notes * Rita Pandya RN - 08/02/2022 3:42 PM CDT See refill request on these also. * Kamilah Gifford RN - 07/04/2022 11:38 AM CDT Please advise. 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
--- OUTSIDE RECORDS SUMMARY | 2024-05-28 11:36 | XMS_ITS | Patient Health Summary ---
Author Organization [facility] Address [address] [place] [address] Care Team Providers Care Mason Helper Name Role Phone Quinton Ledbetter RETAIL ASSOCIATE MANAGER BILINGUAL-MOBILE SALES EXPERT Primary Care Provider Note from [facility],non-owned Affiliates and Associated Physician Practices is amultiple site organization consisting of ambulatory clinics and hospital sitesin [place], [place], [place] and [place]. This disclosure is being madepursuant to the Care Everywhere program and may not contain all information available regarding this patient. Last updated 17.[facility] Allergies * Hydrocodone(Itching) Medications * Be aware that medications may not be up to date on this document. Alwaysverify current medications with the patient. * ALPRAZolam (XANAX) 2 MG tablet(Started 09/25/2021) Take 2 mg by mouth once daily * losartan-hydroCHLOROthiazide (HYZAAR) 100-25 MG tablet(Started 07/13/2021) Take 1 tablet by mouth once daily * gabapentin (NEURONTIN) 100 MG capsule(Started 09/26/2021) Take 1 (one) capsule by mouth 3 times daily 3 refills by 09/26/2022 * meclizine (ANTIVERT) 25 MG tablet(Started 09/26/2021) Take 1 (one) tablet by mouth 2 times daily 3 refills by 09/26/2022 * tiZANidine (Zanaflex) 4 MG tablet(Started 01/10/2022) Take 1 tablet by mouth every 8 hours as needed Active Problems Problem Noted Date Diagnosed Date [...] or greater 10/24 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 Immunizations * TDAP (7yrs+)(Given 06/25/2017) Social History Tobacco Use Types Packs/Day Years Used Date Smoking Tobacco: Every Day Smokeless Tobacco: Never Alcohol Use Standard Drinks/Week Comments Never 0 (1 standard drink = 0.6 oz pur e alcohol) PHQ-2 Answer Date Recorded PHQ2 TOTAL SCORE 5 01/11/2022 Sex and Gender Information Value Date Recorded Sex Assigned at Female 04/09/2022 9:29 AM POLICE COMMUNICATIONS DISPATCHER Gender Identity Female 04/09/2022 9:29 AM POLICE COMMUNICATIONS DISPATCHER Sexual Orientation Straight 04/09/2022 9: 29 AM POLICE COMMUNICATIONS DISPATCHER Last Filed Vital Signs Vital Sign Reading [...] Mass Index 29.7 12/07/2021 10:23 AM CDT Procedures * HEMOGLOBIN A1C(Performed 04/05/2022) * VITAMIN D 25-HYDROXY(Performed 04/05/2022) * VITAMIN B12(Performed 04/05/2022) * CBC W AUTO DIFFERENTIAL(Performed 04/05/2022) * COMPREHENSIVE METABOLIC PANEL(Performed 04/05/2022) * TSH+FREE T4 PANEL(Performed 04/05/2022) * LIPID PROFILE(Performed 04/05/2022) Results * TSH+FREE T4 PANEL (04/05/2022 9:34 AM POLICE COMMUNICATIONS DISPATCHER) [facility] TSH 2.42 mIU/L [facility] Comment: Reference Range > or = 20 Years 0.40-4.50 Ranges First trimester 0.26-2.66 Second trimester 0.55-2.73 Third trimester 0.43-2.91 T4 Free 1.1 0.8 - 1.8 ng/dL [facility] Comment: Test Performed at: [facility] [address] [place] [address] LOENEL GILMAN DO,MPH 04/05/2022 9:34 AM POLICE COMMUNICATIONS DISPATCHER 04/05/2022 9:35 AM POLICE COMMUNICATIONS DISPATCHER Deirdre Blancas MD LAB - CHEMISTRY ORDERABLES [address] [address] * HEMOGLOBIN A1C (04/05/2022 9:34 AM POLICE COMMUNICATIONS DISPATCHER) [facility] Hemoglobin A1c 5.6 <5.7 % of total Hgb [facility] Comment: For the purpose of screening for the presence of diabetes: <5.7% Consistent with the absence of diabetes 5.7-6.4% Consistent with increased risk for diabetes (prediabetes) > or =6.5% Consistent with diabetes This assay result is consistent with a decreased risk of diabetes. Currently, no consensus exists regarding use of hemoglobin A1c for diagnosis of diabetes in children. According to [place] Diabetes Association (ADA) guidelines, hemoglobin A1c <7.0% represents optimal control in non- diabetic patients. Different metrics may apply to specific patient populations. Standards of Medical Care in Diabetes(ADA). REPORT COMMENT: FASTING:YES Test Performed at: [facility] [id number] [place] [id number] PEYMAN MAHONEY MD 04/05/2022 9:34 AM POLICE COMMUNICATIONS DISPATCHER 04/05/2022 9:35 AM POLICE COMMUNICATIONS DISPATCHER Deirdre Blancas MD LAB - CHEMISTRY ORDERABLES Performing Organization Address [facility] de Phone Number [facility] [address] [place] [phone] * VITAMIN D 25-HYDROXY (04/05/2022 9:34 AM POLICE COMMUNICATIONS DISPATCHER) Vitamin D, 25 Hydroxy 84 30 - 100 ng/mL [facility] Comment: Vitamin D Status 25-OH Vitamin D: Deficiency: <20 ng/mL Insufficiency: 20 - 29 ng/mL Optimal: > or = 30 ng/mL For 25-OH Vitamin D testing on patients on D2-supplementation and patients for whom quantitation of D2 and D3 fractions is required, the QuestAssureD(TM) 25-OH VIT D, (D2,D3), LC/MS/MS is recommended: order code 72394 (patients >2yrs). See Note 1 Note 1 For additional information, please refer to http://education.Shop2/faq/HMP552 (This link is being provided for informational/ educational purposes only.) Test Performed at: [facility] [address] [place] [id number] LEONEL GILMAN DO,MPH 04/05/2022 9:34 AM POLICE COMMUNICATIONS DISPATCHER 04/05/2022 9:35 AM POLICE COMMUNICATIONS DISPATCHER Deirdre Blancas MD LAB - CHEMISTRY ORDERABLES Performing Organization Address [facility] de Phone Number [facility] [address] [place] [address] * CBC WITH DIFFERENTIAL (04/05/2022 9:34 AM POLICE COMMUNICATIONS DISPATCHER) White Blood Cell Count 7.4 3.8 - 10.8 Thousand/u L [facility] RBC 4.51 3.80 - 5.10 Million/uL [facility] Hemoglobin 13.7 11.7 - 15.5 g/dL [facility] Hematocrit 41.9 35.0 - 45.0 % [facility] MCV 92.9 80.0 - 100.0 fL [facility] MCH 30.4 27.0 - 33.0 pg [facility] MCHC 32.7 32.0 - 36.0 g/dL [facility] RDW 12.4 11.0 - 15.0 % [facility] Platelet Count 293 140 - 400 Thousand/u L [facility] MPV 10.9 7.5 - 12.5 fL [facility] Neutrophil Absolute 3804 1500 - 7800 cells/uL [facility] Absolute Bands [facility] Metamyelocytes Absolute [facility] Myelocytes Absolute [facility] Absolute Prolymphocytes [facility] Lymphocytes Absolute 3064 850 - 3900 cells/uL [facility] Absolute Monocytes 496 200 - 950 cells/uL [facility] Eosinophils Absolute 30 15 - 500 cells/uL [facility] Basophils Absolute 7 0 - 200 cells/uL [facility] Absolute Blasts [facility] nRBC Absolute [facility] Granulocytes % 51.4 % [facility] Band Neutrophil [facility] Metamyelocytes [facility] Myelocytes [facility] Promyelocytes [facility] Lymphocytes % 41.4 % [facility] Lymphocyte Reactive [facility] Monocytes % 6.7 % [facility] Eosinophils % 0.4 % [facility] Basophils % 0.1 % [facility] Comment: Test Performed at: [facility] [employer] [phone] LEONEL GILMAN DO,MPH Blasts [facility] nRBC [facility] Comments [facility] Comment: Test Performed at: [facility] [id number] [address] LEONEL GILMAN DO,MPH 04/05/2022 9:34 AM POLICE COMMUNICATIONS DISPATCHER 04/05/2022 9:35 AM POLICE COMMUNICATIONS DISPATCHER Deirdre Blancas MD LAB - HEMATOLOGY ORDERABLES [facility] [address] [place] [address] * (ABNORMAL) COMPREHENSIVE METABOLIC PANEL (04/05/2022 9:34 AM POLICE COMMUNICATIONS DISPATCHER) Pathologist [facility] Glucose 102(H) 65 - 99 mg/dL [facility] Comment: Fasting reference interval For someone without known diabetes, a glucose value between 100 and 125 mg/dL is consistent with prediabetes and should be confirmed with a follow-up test. BUN 10 7 - 25 mg/dL [facility] Creatinine 0.92 0.50 - 0.97 mg/dL [facility] eGFR by Cystatin C 84 > OR = 60 mL/min/1. 73m2 [facility] Comment: The eGFR is based on the CKD-EPI 2020 equation. To calculate the new eGFR from a previous Creatinine or Cystatin C result, go to https://www.kidney.org/professionals/ kdoqi/gfr%5Fcalculator BUN/Creatinine Ratio NOT APPLICABLE 6 - 22 (calc) [facility] Sodium 140 135 - 146 mmol/L [facility] Potassium 3.1(L) 3.5 - 5.3 mmol/L [facility] Chloride 105 98 - 110 mmol/L [facility] CO2 27 20 - 32 mmol/L [facility] Calcium 9.7 8.6 - 10.2 mg/dL [facility] Protein Total 6.9 6.1 - 8.1 g/dL [facility] Albumin 4.3 3.6 - 5.1 g/dL [facility] Globulin Total 2.6 1.9 - 3.7 g/dL (calc) [facility] Albumin/Globuli n Ratio 1.7 1.0 - 2.5 (calc) [facility] Bilirubin Total 0.4 0.2 - 1.2 mg/dL [facility] Alkaline Phosphatase 59 31 - 125 U/L [facility] AST 34(H) 10 - 30 U/L [facility] ALT 72(H) 6 - 29 U/L [facility] Comment: Test Performed at: [employer] [id number] LEONEL GILMAN DO,MPH 04/05/2022 9:34 AM POLICE COMMUNICATIONS DISPATCHER 04/05/2022 9:35 AM POLICE COMMUNICATIONS DISPATCHER Deirdre Blancas MD LAB - CHEMISTRY ORDERABLES Performing Organization Address [facility] de Phone Number [facility] [address] [place] [address] * VITAMIN B12 (04/05/2022 9:34 AM POLICE COMMUNICATIONS DISPATCHER) Vitamin B12 664 200 - 1100 pg/mL [facility] Comment: Test Performed at: [employer] [address] LEONEL GILMAN DO,MPH 04/05/2022 9:34 AM POLICE COMMUNICATIONS DISPATCHER 04/05/2022 9:35 AM POLICE COMMUNICATIONS DISPATCHER Deirdre Blancas MD LAB - CHEMISTRY ORDERABLES Performing Organization Address [facility] de Phone Number [facility] [address] [place] [address] * (ABNORMAL) LIPID PROFILE (04/05/2022 9:34 AM POLICE COMMUNICATIONS DISPATCHER) Cholesterol 195 <200 mg/dL [facility] HDL Cholesterol 49(L) > OR = 50 mg/dL [facility] Triglycerides 211(H) <150 mg/dL [facility] Comment: If a non-fasting specimen was collected, consider repeat triglyceride testing on a fasting specimen if clinically indicated. Rell et al. J. of Clin. Lipidol. 2015;9:129-169. LDL Calculated 113(H) mg/dL (calc) [facility] Comment: Reference range: <100 Desirable range <100 mg/dL for primary prevention; <70 mg/dL for patients with CHD or diabetic patients with > or = 2 CHD risk factors. LDL-C is now calculated using the Annemarie calculation, which is a validated novel method providing better accuracy than the Friedewald equation in the estimation of LDL-C. Pool SUGGS et al. EDUARDA. 2013;310(19): 7057-8689 (http://education.HSTYLE.[employer]/faq/DMW931) CHOL/HDLC RATIO 4.0 <5.0 (calc) [facility] Non HDL Cholesterol 146(H) <130 mg/dL (calc) [facility] Comment: For patients with diabetes plus 1 major ASCVD risk factor, treating to a non-HDL-C goal of <100 mg/dL (LDL-C of <70 mg/dL) is considered a therapeutic option. Test Performed at: [facility] [address] [place] [address] LEONEL GILMAN DO,MPH 04/05/2022 9:34 AM POLICE COMMUNICATIONS DISPATCHER 04/05/2022 9:35 AM POLICE COMMUNICATIONS DISPATCHER Deirdre Blancas MD LAB - CHEMISTRY ORDERABLES [facility] [address] [place] [address] Care Teams Mason Helper Relationship Specialty Start Date End Date Quinton Ledbetter, RETAIL ASSOCIATE MANAGER BILINGUAL-MOBILE SALES EXPERT [address] [place] [address] PCP - General 06/15/21
--- OUTSIDE RECORDS SUMMARY | 2024-05-28 11:36 | XMS_ITS | Clinical Summary ---
Author Organization [facility] Address [address] [place] [address] Care Team Providers Care Search Specialist Name Role Phone Sami Menjivar MD Primary Care Provider [phone] Allergies Active Allergy Reactions Criticality Noted Date Comments Hydrocodone Itching 09/26/2021 Medications albuterol sulfate HFA 108 (90 Base) MCG/ACT inhaler 2 puffs. 2 Active azelastine (ASTELIN) 0.1 % nasal spray azelastine 137 mcg (0.1 %) nasal spray aerosol USE 1 SPRAY IN EACH NOSTRIL EVERY 12 HOURS Active vitamin D2, ergocalciferol, (DRISDOL) 66204 UNITS capsule TAKE 1 CAPSULE BY MOUTH 1 TIME WEEKLY 2 Active meclizine (ANTIVERT) 25 MG tablet Take 1 tablet (25 mg total) by mouth 2 (two) times daily. 2 Active ondansetron (ZOFRAN-ODT) 4 MG disintegrating tablet DISSOLVE 1 TABLET ON THE TONGUE EVERY 6 HOURS FOR 3 DAYS NEEDED FOR NAUSEA OR VOMITING 2 Active gabapentin (NEURONTIN) 100 MG capsuleIndications :Neuropathy gabapentin 100 mg capsule TAKE 1 CAPSULE BY MOUTH THREE TIMES DAILY Strength: 100 mg 90 capsule 2 3 Active norethindrone-ethi nyl estradiol (MICROGESTIN 04/26) 1-20 MG-MCG tabletIndications: Dysmenorrhea,Encou nter for routine examination for contraception Take 1 tablet by mouth daily. 21 tablet 2 3 Active cyanocobalamin (B-12) 1000 MCG/ML injectionIndicatio ns:Vitamin B12 deficiency Inject 1 mL (1,000 mcg total) into the muscle once a week. 4 mL 3 Active NEEDLE, DISP, 25 G (BD DISP NEEDLES) 25G X 5/8 MiscIndications:Vi tamin B12 deficiency Use with B12 injection 4 each 3 Active Syringe, Disposable, 1 ML MiscIndications:Vi tamin B12 deficiency Use with B12 injection 25 each 3 Active doxepin (SINEQUAN) 100 MG capsuleIndications :Primary insomnia TAKE 1 CAPSULE(100 MG) BY MOUTH EVERY NIGHT AT BEDTIME 30 capsule 3 Active ALPRAZolam (XANAX) 1 MG tabletIndications: Severe anxiety Take 1 tablet (1 mg total) by mouth 2 (two) times daily as needed for Anxiety. 60 tablet 3 Active amLODIPine (NORVASC) 5 MG tabletIndications: Primary hypertension TAKE 1 TABLET(5 MG) BY MOUTH DAILY 30 tablet 3 Active losartan-hydroCHLO ROthiazide (HYZAAR) 100-25 MG tabletIndications: Primary hypertension TAKE ONE TABLET BY MOUTH DAILY 30 tablet 2 3 Active tiZANidine (ZANAFLEX) 4 MG tabletIndications: Neuropathy Take 1 tablet (4 mg total) by mouth daily as needed. 30 tablet 3 Active Active Problems No known active problems Social History Tobacco Use Types Packs/Day Years Used Date Smoking Tobacco: Every Day Cigarettes Smokeless Tobacco: Never Tobacco Cessation:Ready to Q uit: Yes; Counseling Given: Yes Alcohol Use Standard Drinks/Week Comments Yes 0 [...] Sign Reading Time Taken Comments Blood Pressure 160/87 06/17/2022 3:19 PM CDT Pulse 80 06/17/2022 2:46 PM CDT Temperature 37 C (98.6 F) 06/17/2022 2:46 PM CDT Respiratory Rate 20 06/17/2022 2:46 PM CDT Oxygen Saturation 98% 06/17/2022 2:46 PM CDT Inhaled Oxygen Concentration - - Weight 82.6 kg (182 lb) 06/17/2022 2:46 PM CDT Height 162.6 cm (5' 4 ) 06/17/2022 2:46 PM CDT Body Mass Index 31.24 06/17/2022 2:46 PM CDT Plan of Treatment Health Maintenance Due Date Last Done Comments Cervical Cancer Screening Pa p Smear (Age 30 to 64) Every 3 Years 1987 Annual Physical 1990 Pneumococcal Vaccine: Pediatrics (0 to 5 Years) and At-Risk Patients (6 to 64 Years) (1 of 2 - PCV) 1993 PHQ-2 (Physician [place]) 1999 Hepatitis C 2005 Hepatitis B Vaccines (1 of 3 - 19+ 3-dose series) 2006 Cervical Cancer Screening Pa p with HPV Testing (Age 30 to 64) Every 5 Years 2017 Cervical Cancer Screening wi th HPV 2017 COVID-19 Vaccine (3 - 2023-2 5 season) 2023 09/26/2020, 08/17/2020 Influenza Adult (#1) 2024 PHQ-2 (Physician [place]) 04/07/2024 DTaP, Tdap and Td Vaccines ( 2 - Td or Tdap) 06/26/2027 06/25/2017 HPV Vaccines Aged Out No longer eligi ble based on patient's age to complete this topic Meningococcal B Vaccine Aged Out No l onger eligible based on patient's age to complete this topic Meningococcal Vaccine Aged Out No eufemia radha eligible based on patient's age to complete this topic RSV Immunizations Under 20 Months Aged Out No longer eligible b ased on patient's age to complete this topic Insurance [employer] Care Teams Search Specialist Relationship Specialty Start Date End Date Sami Menjivar MD [address] [address] PCP - General FAMILY PRACTICE 08/19/22
--- NOTE | 2024-06-10 15:28 | WPDHOLTEREM ---
Holter/Event Monitor Holter/Event Monitor Date of procedure: 05/28/24 Holter/Event Procedure: 3-7 Day Holter Monitor Indications: Palpitations Conclusion: 1. 3 days holter monitor on 05/28/24. 2. Predominant rhythm is sinus rhythm. HR range 47-154 bpm; average HR 87 bpm. HR at 47 bpm was on 05/29/24 at 8:37 am. HR at 154 bpm was on 05/28/24 at 12:31 pm. 3. There are rare premature supraventricular complexes. There are 2 episodes of supraventricular tachycardia, fastest at 120 bpm and longest lasting 7 beats. 4. There are rare premature ventricular complexes. No ventricular tachycardia. 5. No significant pauses greater than 3 seconds. 6. Patient reports 7 episodes of symptoms of racing, chest pain which demonstrate sinus rhythm, HR range 91-126 bpm.
== END 2024-05-28 11:04 | disposition home or self-care (01) ==
LOC: ANHCARD 11:04
PROVIDERS: PCP Nurse Practitioner Family; Visit Provider Nurse Practitioner Family
DX: I47.10 Supraventricular tachycardia, unspecified (principal); R07.9 Chest pain, unspecified; I49.1 Atrial premature depolarization; I49.3 Ventricular premature depolarization; R00.2 Palpitations
CPT/HCPCS: 93242

== ENCOUNTER 2024-09-07 09:33 | Outpatient (CLI) | payer OTHER, SELFPAY ==
--- NOTE | ~2024-09-07 | MMUS_ITS ---
MM DIAGNOSTIC KVNG BI W YECENIA AND US BREAST BI LIMITED INDICATION: 39-year old female; BILATERAL milky Nipple discharge. COMPARISON: 02/18/2022 and 08/19/2018 TECHNIQUE: Digital breast tomosynthesis True lateral and CC and MLO views of the BILATERAL breast wer e obtained with computer-aided detection to assist in interpretation of the study. FINDINGS: There are scattered areas of fibroglandular density. There is a circumscribed mass seen in the superior lateral posterior depth within the right breast. There are no other suspicious masses, calcifications, architectural distortion or any other abnormali ty in either breast. BILATERAL BREAST ULTRASOUND FINDINGS: Targeted evaluation of the subareolar location was completed. There is a 0.3 x 0.2 x 0.[address] seen at 11:00, 3 cm from the nipple in the right breast that correlates to the mammographic findin g. No other suspicious solid or cystic mass. IMPRESSION: No mammographic or sonographic evidence of breast malignancy. Right breast 0.3 cm simple cyst at 11:00. RECOMMENDATION: CLINICAL MANAGEMENT OF NIPPLE DISCHARGE IS ADVISED. RECOMMEND SURGICAL CONSULTATION FOR ADDITIONAL RE COMMENDATIONS INCLUDING BREAST MRI IF CLINICALLY WARRANTED. BI-RADS 2, BENIGN Reviewed, dictated and finalized at location B. IMPRESSION: No mammographic or sonographic evidence of breast malignancy. Right breast 0.3 cm simple cyst at 11:00. RECOMMENDATION: CLINICAL MANAGEMENT OF NIPPLE DISCHARGE IS ADVISED. RECOMMEND SURGICAL CONSULTA TION FOR ADDITIONAL RECOMMENDATIONS INCLUDING BREAST MRI IF CLINICALLY WARRANTE D. BI-RADS 2, BENIGN
--- OUTSIDE RECORDS SUMMARY | 2024-09-07 09:52 | XMS_ITS | Clinical Summary ---
Author Organization [facility] Care Team Providers Care Hairspring Cutter Name Role Phone Unavailable Primary Care Provider [...]
== END 2024-09-07 09:34 | disposition home or self-care (01) ==
PROVIDERS: PCP Student in an Organized Health Care Education/Training Program; Visit Provider Student in an Organized Health Care Education/Training Program
DX: N64.3 Galactorrhea not associated with childbirth (principal)
CPT/HCPCS: 76642; 77062; 77066; G0279

== ENCOUNTER 2024-10-04 11:27 | Emergency (ER) | payer OTHER, SELFPAY ==
[2024-10-04 11:37] VITALS: BP 128/73; PULSE 87; RESP 20; TEMP 36.6; O2SAT 98
--- NOTE | 2024-10-04 11:40 | ED.URI ---
HPI - URI/Sore Throat General Chief Complaint: Ear Stated Complaint: Ears Irritation/Sinus Time Seen by Provider: 10/04/24 11:40 Source: patient Mode of arrival: ambulatory Limitations: no limitations History of Present Illness HPI Narrative: Gina is a 39-year-old female patient presenting to the clinic today with complaints of bilateral ear discomfort, sinus congestion, cough, and sore throat. Had a low-grade fever yesterday. She denies any shortness of breath or chest pain. Related Data Home Medications ?Medication ?Instructions ?Recorded ?Confirmed ?Last Taken ?Type insulin syringe-needle U-100 1 mL #100 ea 11/03/23 09/23/24 Unknown History 25 x 1 furosemide 20 mg tablet 20 mg PO DAILY 12/08/23 09/23/24 Unknown History Allergies Allergy/AdvReac Type Severity Reaction Status Date / Time hydrocodone Allergy Mild ITCHING Verified 10/04/24 11:57 bupropion AdvReac Intermediate Agitated Verified 10/04/24 11:57 ibuprofen AdvReac Mild AFFECTS IBS Verified 10/04/24 11:57 doxycycline AdvReac Intermediate Vomiting Uncoded 10/04/24 11:57 Review of Systems Review of Systems: Pertinent positives per HPI. Patient denies any fever, chills, rash, headache, visual changes, dizziness, shortness of breath, chest pain, palpitations, nausea, vomiting, diarrhea, constipation, abdominal pain, or any urinary issues. [facility] Past Medical History Medical History BMI 39.0-39.9,adult Galactorrhea Fatty liver Alcohol abuse Tobacco dependence Bipolar disorder Irritable bowel syndrome Hyperlipidemia Chronic constipation Hypertension Anxiety Depression Surgical History Surgical History History of nasal septoplasty History of hernia repair (01/2021) History of endoscopy History of colostomy (2014) due to trauma, with reversal History of laparoscopy Family History Family History Grandparent Heart disease Mother Bipolar 1 disorder Polycythemia Father Hypertension DVT (deep venous thrombosis) Other Depression Social History Social History Smoking packs per day: 1 Smoking cigarettes per day: 20.0 Years smoked: 23 Smoking pack-years: 23.00 Smoking status: Current every day smoker Tobacco type: cigarettes Smokeless tobacco user: other Alcohol intake: current Drinks per week: 14 Substance use: current Substance use type: marijuana Last use: 12/08/23 Do You Feel Safe in your Home?: Yes Lack of Transportation: No Lack of Food: Never True Current Housing: I Have Housing Concerned About Future Housing: No Difficulty Paying Gas/Electric Bills: No Difficulty Paying for Meds: No Currently Unemployed: YES Education: High School Diploma/GED Difficulty w/ Childcare or Family Care: No Living arrangements: with family Occupation/Education: unemployed Gender identity (if verbalized by the patient): Female Spiritual care concerns: No Comments At the time of my signature, I reviewed and agree with the nursing past medical, surgical, social, and family history. There is no relevant family history pertinent to the patient complaint. Exam Narrative: General: Well-developed, obese, in no apparent distress Head: Normocephalic, atraumatic Eyes: Pupils equally round and reactive to light bilaterally, EOM intact, sclera and conjunctive clear, no discharge, lids normal Ears: TMs intact and congested, ear canals clear, no drainage, grossly hearing normal. Nose: Nares patent, clear nasal discharge, no inflammation, no sinus tenderness. Mouth: Oral pharynx without lesions or masses, good dentition, MMM. Postnasal drip Neck: Supple, trachea midline, no enlargement of anterior or posterior cervical nodes, no thyroid masses or goiter palpable. Cardio: Regular rate and rhythm, s1 and s2 normal, no murmur appreciated. Resp: Clear to auscultation bilaterally, no rhonchi, rales, wheezing or rubs Course Course Emergency Course: Portions of this record may have been created with voice recognition software. Level of Care: Express Care Visit Vital Signs Vital signs: Vital Signs Temperature 36.6 C 10/04/24 11:37 Pulse Rate 87 10/04/24 11:37 Respiratory Rate 20 10/04/24 11:37 Blood Pressure 128/73 10/04/24 11:37 Pulse Oximetry 98 10/04/24 11:37 Oxygen Delivery Room Air 10/04/24 11:37 Temperature 36.6 C 10/04/24 11:37 Pulse Rate 87 10/04/24 11:37 Respiratory Rate 20 10/04/24 11:37 Blood Pressure 128/73 10/04/24 11:37 Pulse Oximetry 98 10/04/24 11:37 Oxygen Delivery Room Air 10/04/24 11:37 Vital signs reviewed MDM - URI/Sore Throat MDM Narrative Medical decision making narrative: At the time of visit patient is resting comfortably on the exam table. Patient appears to be nontoxic. Labs: COVID, influenza, and strep test were performed in the clinic today. All testing was negative in the clinic today. We will send strep for culture. Plan: I suspect patient has URI/pharyngitis. Work note was given. Supportive measures were discussed with the patient and they voiced understanding discharge instructions and agrees to treatment plan. Return precautions reviewed Differential Diagnosis Differential diagnosis: Likely upper respiratory infection, otitis media, sinusitis, viral infection, bronchitis, influenza, pharyngitis and other (COVID) Lab Data Labs: Lab Results 10/04/24 Range/Units 11:44 POC Grp A Strep Screen Negative (Negative) Discharge Plan Discharge Clinical Impression: Upper respiratory infection with cough and congestion Pharyngitis Qualifiers: Pharyngitis/tonsillitis etiology: unspecified etiology Qualified Code(s): J02.9 - Acute pharyngitis, unspecified Patient Disposition: Home Condition: Stable Instructions: Antibiotic Form, Pharyngitis (ED), Cold Symptoms (ED) Additional Instructions: COVID, influenza, and strep test were all negative in the clinic today. We will send strep for culture and if this comes back positive we will contact him place you on antibiotics at that time. May take Coricidin HBP for cold/flu symptoms Increase fluids and stay well hydrated Tylenol/motrin for pain/fever Flonase and OTC antihistamines as directed Vicks vapor rub to open sinuses Sinus rinses for congestion Cepacol spray, cough drops, throat lozenges, warm tea with honey/lemon, gargle salt water to soothe throat BRAT diet for diarrhea Clear liquids x 24 hours then advance as tolerated for nausea/vomiting Go to the ED if you develop a worsening in your condition- high fever not controlled by Tylenol or Motrin, dehydration, weakness, lethargy, shortness of breath, or chest pain. Follow up with your PCP in 3-5 days if symptoms persist. Patient Language: Tajik Prescriptions: No Action (DME) insulin syringe-needle U-100 1 mL 25 x 1 syringe See Rx Instructions .ROUTE .MEDSUPPLY Qty: 100 Rx Instructions: As directed cyanocobalamin (vitamin B-12) 1,000 mcg/mL solution 1,000 mcg subcut MONTHLY Qty: 10 1RF Slynd 4 mg (28) tablet 1 tablet PO DAILY Qty: 84 3RF hydrocodone-acetaminophen 5-325 mg tablet 1 tablet PO Q8H PRN (Reason: pain) Qty: 20 0RF furosemide 20 mg tablet 20 mg PO DAILY ergocalciferol (vitamin D2) 1,250 mcg (50,000 unit) capsule 1,250 mcg PO WEEKLY Qty: 13 1RF amlodipine 10 mg tablet 10 mg PO DAILY Qty: 90 1RF alprazolam 1 mg tablet 1 mg PO TID Qty: 90 3RF fluticasone propionate 50 mcg/actuation spray,suspension 1 spray INTRANASAL DAILY Qty: 16 11RF losartan-hydrochlorothiazide 100-25 mg tablet 1 tablet PO DAILY Qty: 90 2RF potassium chloride 20 mEq tablet extended release See Rx Instructions .ROUTE .COMPLEX Qty: 90 0RF Dose Instruction: TAKE 1 TABLET BY MOUTH DAILY Rx Instructions: TAKE 1 TABLET BY MOUTH DAILY duloxetine 60 mg capsule,delayed release(DR/EC) See Rx Instructions .ROUTE .COMPLEX Qty: 30 2RF Dose Instruction: TAKE 1 CAPSULE BY MOUTH DAILY Rx Instructions: TAKE 1 CAPSULE BY MOUTH DAILY propranolol 20 mg tablet 20 mg PO Q12H Qty: 60 0RF trazodone 150 mg tablet 150 mg PO QHS Qty: 90 1RF tizanidine 4 mg tablet 4 mg PO TID PRN (Reason: muscle spasticity) Qty: 90 2RF Follow-up/Referrals: Adele Person, [employer] INSPECTOR HELPER [Primary Care Provider] - Stand Alone Forms: Work/School Release IP Time of Disposition: 11:59 Quality NIHSS Nursing Documentation ED NIHSS nursing documentation: reviewed/agree
[2024-10-04 11:57] LABS: EDSTREPNEGPOS1 Negative (Negative)
[2024-10-04 12:06] LABS: EDCOVIDSCREEN Negative (Negative); EDINFLUASCREEN Negative (Negative); EDINFLUBSCREEN Negative (Negative)
[2024-10-04 12:10] LABS: EDCOVIDSCREEN Negative (Negative); EDINFLUASCREEN Negative (Negative); EDINFLUBSCREEN Negative (Negative)
== END 2024-10-04 12:03 | disposition home or self-care (01) ==
PROVIDERS: Emergency Provider Nurse Practitioner Family; PCP Nurse Practitioner Family
DX: J06.9 Acute upper respiratory infection, unspecified (principal); J02.9 Acute pharyngitis, unspecified; E78.5 Hyperlipidemia, unspecified; I10 Essential (primary) hypertension; F17.210 Nicotine dependence, cigarettes, uncomplicated; Z20.822 Contact with and (suspected) exposure to COVID-19
CPT/HCPCS: 87081; 87426; 87804; 87880; 99213; G0463

== ENCOUNTER → 2024-10-04 12:26 | Outpatient (CLI) | payer OTHER, SELFPAY ==
--- NOTE | ~2024-10-04 | XR_ITS ---
Cervical Spine: AP, oblique, lateral, open-mouth views Clinical History: Pain Findings: There is straightening of the normal cervical lordosis. The vertebral bodies and posterior elements appear intact. The intervertebral disc spaces are well maintained. Pre-vertebral soft tiss ues are unremarkable. Impression: Straightening of the normal cervical lordosis, otherwise unremarkable exam. Reviewed, dictated and finalized at location . Impression: Straightening of the normal cervical lordosis, otherwise unremarkable exam.
--- NOTE | ~2024-10-04 | XR_ITS ---
Lumbosacral Spine: AP, oblique, and lateral views Clinical History: Pain Findings: The normal lordotic curve is maintained. The vertebral bodies and posterior elements are i ntact. The intervertebral disc spaces are preserved. The sacroiliac joints are normally outlined. Impression: No significant abnormality. Reviewed, dictated and finalized at [facility]. Impression: No significant abnormality.
== END ==
LOC: EXPCRAD 12:28
PROVIDERS: PCP Nurse Practitioner Family; Visit Provider Nurse Practitioner Family
DX: M40.50 Lordosis, unspecified, site unspecified (principal); M54.41 Lumbago with sciatica, right side; M54.42 Lumbago with sciatica, left side
CPT/HCPCS: 72040; 72100